=== PATIENT | male | born 1965 | race Hispanic/Latino ===

== ENCOUNTER 2025-02-07 17:07 | Inpatient (IN) | payer SELFPAY ==
[~2025-02-07] VITALS: Ht 170.2 cm; Wt 69.4 kg
[2025-02-07] MEDS: acetaMINOPHEN 500 MG TABLET PO ONE (17:40)
[2025-02-07] MEDS: [UNRECOGNIZED DRUG - OTHER] IV ONE (17:41)
--- NOTE | 2025-02-07 17:41 | ERN ---
General Chief Complaint: Fever Stated Complaint: BACK PAIN Time Seen by MD: 17:15 Time Seen by Midlevel: 17:15 Source: patient History of Present Illness Initial Comments 58-year-old male who presents to the emergency department due to a fever. Patient reports back pain, chest pain, abdominal pain, vomiting onset 3 days. Denies any painful urination, cough, congestion, headache or further associated symptoms. Patient was seen yesterday at a clinic prescribed lidocaine patches and given pain medication, but states that pain is not improving. Denies significant past medical history. Allergies: Coded Allergies: No Known Allergies (Unverified Allergy, Unknown, 02/07/25) Past Medical History Past Medical History: No Pertinent History Past Surgical History: Other ROS Dictation Constitutional: Positive for fever Negative for chills, and weight loss Eyes: Negative for injury, pain,redness, and discharge ENT: Negative for injury,pain or swelling Cardiovascular: Positive for chest pain Negative for palpitations, and edema Respiratory: Negative for shortness of breath, cough, and wheezing, Abdomen/GI: Positive for abdominal pain, vomiting Negative for nausea, diarrhea, and constipation Back: Negative for injury and pain : Negative for painful urination, bleeding or discharge MS/Extremity: Positive for back pain Negative for injury and deformity Skin: Negative for rash, and discoloration Neuro: Negative for headache, weakness, numbness, tingling, and seizure Psych: Negative for suicide ideation, homicidal ideation, and hallucinations Physical Exam Physical Exam Dictation General: awake, alert, no acute distress Head/Face: Normocephalic, atraumatic Eyes: PERRL, EOMI, normal conjunctiva ENT: oral cavity clear, oral mucosa moist Neck: Supple, normal range of motion Cardiovascular: RRR, normal S1/S2 Respiratory: CTAB, no respiratory distress, no rales or wheezes Abdomen: Soft, mild RUQ / epigastric tenderness, non-distended, no guarding or rebound. Back: No CVA tenderness Skin: Warm, dry, normal turgor, no rash MS/Extremity: Pulses equal, no cyanosis, neurovascular intact, FROM Neuro: COAx4, GCS 15, strength 5/5, CN 2-12 intact, normal cerebellar exam, normal gait Psych: Normal behavior, mood, and affect normal Results Laboratory and Microbiology Labs Reviewed?: Yes EKG/XRAY/US/CT/MRI X-RAY Comment REASON: Fever ORDERING PHYSICIAN: ADRIANE MOSHER PROCEDURE: CXR1VW - CHEST 1VW PORTABLE CHEST RADIOGRAPH INDICATION: Fever COMPARISON: None FINDINGS: Heart size is normal. The pulmonary vascularity and hillary appear normal. No abnormal pulmonary parenchymal opacity or consolidation identified. Left suprahilar scarring. No significant pleural effusion noted. No pneumothorax detected. IMPRESSION: No radiographic evidence for any acute cardiopulmonary process. DICTATED BY: YELENA DURÁN MD DATE: 02/07/[address] Scan Comment REASON: RUQ and epigastric pain ORDERING PHYSICIAN: ADRIANE MOSHER PROCEDURE: ABD PEL W - CT ABDOMEN/PELVIS W/CONTRAST CT ABDOMEN/PELVIS W/CONTRAST HISTORY: Epigastric pain COMPARISON: None TECHNIQUE: Multiple sequential axial images of the abdomen and pelvis were obtained from the dome of the diaphragm through symphysis pubis. Patient was given 100 cc of Omnipaque through intravenous route. Oral contrast was not given. FINDINGS: No pleural effusion is seen bilaterally. There is no evidence of parenchymal disease or pulmonary nodule of the visualized lower lungs. Degenerative changes of the thoracolumbar spine are present. The heart is not enlarged. Gallbladder is distended. Common duct is not dilated. The liver, spleen, adrenal glands and pancreas are unremarkable. 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 There is no evidence of hydronephrosis bilaterally. No evidence of renal stone is seen. Fecal material is seen in the colon. There are normal size retroperitoneal and mesenteric lymph nodes. No ascites is seen. Mild small bowel dilatation is seen. Appendix is not well seen in the evaluation. Pelvic sidewalls are symmetric bilaterally. Bladder is well distended without wall thickening. IMPRESSION: 1. Large amount of fecal material is seen in the colon may be related to constipation. Appendix is not well-seen limiting evaluation. CT was performed with one or more following dose reduction techniques: automated exposure control, adjustment of the mA and kv according to patient's size, or use of a iterative reconstruction technique. DICTATED BY: VIKTOR MANDUJANO MD DATE: 02/07/252000 REASON: RUQ and epigastric pain ORDERING PHYSICIAN: ADRIANE MOSHER PROCEDURE: ABD PEL W - CT ABDOMEN/PELVIS W/CONTRAST CT ABDOMEN/PELVIS W/CONTRAST HISTORY: Epigastric pain COMPARISON: None TECHNIQUE: Multiple sequential axial images of the abdomen and pelvis were obtained from the dome of the diaphragm through symphysis pubis. Patient was given 100 cc of Omnipaque through intravenous route. Oral contrast was not given. FINDINGS: No pleural effusion is seen bilaterally. There is no evidence of parenchymal disease or pulmonary nodule of the visualized lower lungs. Degenerative changes of the thoracolumbar spine are present. The heart is not enlarged. Gallbladder is distended. Common duct is not dilated. The liver, spleen, adrenal glands and pancreas are unremarkable. 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 There is no evidence of hydronephrosis bilaterally. No evidence of renal stone is seen. Fecal material is seen in the colon. There are normal size retroperitoneal and mesenteric lymph nodes. No ascites is seen. Mild small bowel dilatation is seen. Appendix is not well seen in the evaluation. Pelvic sidewalls are symmetric bilaterally. Bladder is well distended without wall thickening. IMPRESSION: 1. Large amount of fecal material is seen in the colon may be related to constipation. Appendix is not well-seen limiting evaluation. CT was performed with one or more following dose reduction techniques: automated exposure control, adjustment of the mA and kv according to patient's size, or use of a iterative reconstruction technique. DICTATED BY: VIKTOR MANDUJANO MD DATE: 02/07/252000 [facility] MDM: Differential diagnosis: Cholecystitis, cholelithiasis, choledocholithiasis, pancreatitis Rationale: 58-year-old male who presents to the emergency department due to a fever. Patient reports back pain, chest pain, abdominal pain, vomiting onset 3 days. Denies any painful urination, cough, congestion, headache or further associated symptoms. Patient was seen yesterday at a clinic prescribed lidocai ne patches and given pain medication, but states that pain is not improving. Denies significant past medical history. Per physical examination patient has mild tenderness to the right upper quadrant/epigastric, in no acute distress, nonlabored breathing. Per initial vital signs patient triggered sepsis. Labs obtained are nonspecific. UA indicates hematuria negative for UTI. SARs, influenza, strep negative. Chest x-ray indicates no acute abnormalities. CT abdomen and pelvis indicates gallb ladder distention, constipation. Patient was administered acetaminophen, morphine, Zofran, IV fluids in the ED. patient was educated on findings and diagnosis. Based on patient's symptoms, vitals, CT finding of gallbladder distention decision for admission was discussed with the patient. Case was discussed with hospitalist who accepted admission. Previous outside records reviewed: Old ER visits. Risk of complication and/or morbidity or mortality of patient management: None Medications-Per medication reconciliation Need for hospitalization: Patient does meet criteria for hospitalization. Need for emergency major/minor surgery: No There are no social concerns with this patient. Prescription drug management Prescriptions will include symptomatic care Patient's prior external medical records from other ER visits were reviewed by me as indicated. Prior testing and results from previous visits were reviewed. Prior tests were taken into account with medical decision making and resource utilization, independent historian/historians were used to obtain complete medical history. I independently interpreted the test that were performed, results were reviewed by me and considered findings on radiology if ordered. Medical management and examination interpretation discussions were had by me with other qualified healthcare professionals as indicated for the patient's care. ED Course DX & DISP Disposition: Inpatient Decision to Admit Date: Feb 07, 2025 Departure Impression: Primary Impression: Sepsis Additional Impressions: Vomiting, Gall bladder pain, Distention of biliary tract, Constipation Condition: Stable Referrals: SELF,REFERRAL (PCP) I performed the substantive portion of the visit. I have reviewed and personally made and approve the management plan that is documented in the notes by myself or the ZAIDA. I acknowledge full responsibility for the patient's management plan. ADRIANE MOSHER Feb 07, 2025 17:41
--- NOTE | 2025-02-07 17:53 | HMCIMG ---
PORTABLE CHEST RADIOGRAPH INDICATION: Fever COMPARISON: None FINDINGS: Heart size is normal. The pulmonary vascularity and hillary appear normal. No abnormal pulmonary parenchymal opacity or consolidation identified. Left suprahilar scarring. No significant pleural effusion noted. No pneumothorax detected. IMPRESSION: No radiographic evidence for any acute cardiopulmonary process.
[2025-02-07 18:02] LABS: RAPID GROUP A STREP negative (NEGATIVE)
[2025-02-07 18:02] LABS: APPEARANCE,URINE CLEAR (CLEAR); BILIRUBIN,URINE NEGATIVE (NEGATIVE); COLOR,URINE YELLOW (YELLOW); GLUCOSE, URINE (UA) NEGATIVE (NEGATIVE); KETONES,URINE 40 mg/dL (NEGATIVE); LEUKOCYTE ESTERASE ,URINE NEGATIVE Leu/uL (NEGATIVE); NITRATE,URINE NEGATIVE (NEGATIVE); OCCULT BLOOD,URINE MODERATE (NEGATIVE); PH,URINE 8.5 (5.0-8.0); PROTEIN,URINE 600 mg/dL (NEGATIVE); UROBILINOGEN,URINE >=8.0 mg/dL (0.2-1.0)
[2025-02-07 18:10] LABS: MUCUS,URINE RARE LPF (None Seen); RBC,URINE TNTC /HPF (0-1); SQUAMOUS EPITHELIAL CELL,UR RARE /HPF (0-2); UNCLASSIFIED CRYSTAL 1 /HPF (None Seen)
[2025-02-07 18:12] LABS: COVID19 (SARS ANTIGEN RAPID) PRESUMPTIVE NEGATIVE (NEGATIVE); INFLUENZA TYPE A Negative For Type A (NEGATIVE); INFLUENZA TYPE B Negative For Type B (NEGATIVE)
[2025-02-07 18:38] LABS: BASOPHILS # (AUTO) 0.03 K/uL (0.00-0.20); BASOPHILS % (AUTO) 0.3 % (0.0-5.0); HEMATOCRIT 43.9 % (42-54); IMMATURE GRANULOCYTE ABSOLUTE 0.04 K/uL (0-1); LYMPHOCYTES # (AUTO) 0.6 K/uL (1.0-4.8); LYMPHOCYTES % (AUTO) 6.6 % (21.0-51.0); MEAN CORPUSCULAR HEMOGLOBIN 29.8 pg (27.0-33.0); MEAN CORPUSCULAR HGB CONC 33.5 g/dL (32.0-36.0); MEAN CORPUSCULAR VOLUME 88.9 fL (79-99); MONOCYTES # (AUTO) 0.5 K/uL (0.1-1.0); MONOCYTES % (AUTO) 5.2 % (3.0-13.0); NEUTROPHILS # (AUTO) 7.9 K/uL (1.8-7.7); NEUTROPHILS % (AUTO) 87.5 % (40.0-77.0); PLATELET COUNT (AUTO) 165 K/uL (130-400); RED BLOOD CELL COUNT(AUTO) 4.94 MIL/uL (4.50-6.20); RED CELL DISTRIBUTION WIDTH 13.3 % (11.0-15.5); WHITE BLOOD COUNT (AUTO) 9.1 K/uL (4.8-10.8)
[2025-02-07 18:48] LABS: POTASSIUM 3.9 mmol/L (3.5-5.1)
[2025-02-07 18:52] VITALS: TEMP 99.1
[2025-02-07 18:52] LABS: ALBUMIN 3.9 g/dL (3.5-5.0); BILIRUBIN,DIRECT 0.2 mg/dL (0.0-0.3); BILIRUBIN,TOTAL 0.5 mg/dL (0.2-1.0)
[2025-02-07] MEDS ORDERED: IOHEXOL 350 MG/ML 100ML INFUS..BTL IV ONE (19:17)
--- NOTE | 2025-02-07 19:17 | NUR ---
PT CARE ASSUMED AT THIS TIME
--- NOTE | 2025-02-07 20:09 | HMCIMG ---
CT ABDOMEN/PELVIS W/CONTRAST HISTORY: Epigastric pain COMPARISON: None TECHNIQUE: Multiple sequential axial images of the abdomen and pelvis were obtained from the dome of the diaphragm through symphysis pubis. Patient was given 100 cc of Omnipaque through intravenous route. Oral contrast was not given. FINDINGS: No pleural effusion is seen bilaterally. There is no evidence of parenchymal disease or pulmonary nodule of the visualized lower lungs. Degenerative changes of the thoracolumbar spine are present. The heart is not enlarged. Gallbladder is distended. Common duct is not dilated. The liver, spleen, adrenal glands and pancreas are unremarkable. 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 There is no evidence of hydronephrosis bilaterally. No evidence of renal stone is seen. Fecal material is seen in the colon. There are normal size retroperitoneal and mesenteric lymph nodes. No ascites is seen. Mild small bowel dilatation is seen. Appendix is not well seen in the evaluation. Pelvic sidewalls are symmetric bilaterally. Bladder is well distended without wall thickening. IMPRESSION: 1. Large amount of fecal material is seen in the colon may be related to constipation. Appendix is not well-seen limiting evaluation. CT was performed with one or more following dose reduction techniques: automated exposure control, adjustment of the mA and kv according to patient's size, or use of a iterative reconstruction technique.
--- NOTE | 2025-02-07 20:44 | NUR ---
PROVIDER DON DON AT BEDSIDE AT THIS TIME
[2025-02-07] MEDS: ondanSETRON 4MG INJ IVP ONE (20:50)
[2025-02-07] MEDS: morPHINE 2 MG SYG IVP ONE (20:53)
--- NOTE | 2025-02-07 21:49 | HP ---
[facility] HISTORY AND PHYSICAL Date of Service: Feb 07, 2025 Time of Service: 21:49 PCP: Self-referral HISTORY OF PRESENT ILLNESS: This is a 58 year old male Slovak-speaking with no pertinent medical surgical history who presents to the ED for complaints of right upper shoulder pain, right upper quadrant abdominal pain, fever, nausea, vomiting and chest pain for three days.Patient reports he has been having 3 episodes of vomiting today. Patient states he is drinking one beer per day, smoke seven cigarettes per week and used marijuana and cocaine. Upon arrival to ER vital signs temperature 102.9, heart rate 111, respiration 20, blood pressure 179/98 saturation 56. Seen and examined patient in the ER awake alert and coherent. Patient appears comfortable. No abdominal tenderness on palpation however patient continued to complain of right shoulder pain. Patient denies palpitation, cough, diarrhea, palpitation and shortness of breaths. Latest vital signs temperature 98.2, heart rate 79, respiration 15, blood pressure 137/80 saturation 99% on room air. Labs: WBC 9, hemoglobin 14, hematocrit 43 platelet count 165 and Neutrophils 87. Sodium 135, chloride 97, glucose 126, troponin 37, lipase 16. Urine toxicology positive for cocaine. CT abdomen and pelvis with contrast result revealed large amount of fecal material is seen in the colon may be related to constipation. Appendix is not well seen limiting evaluation. Chest x-ray result is unremarkable. Right shoulder x-ray still pending at this time. While in the ER patient received Tylenol 1000 mg p.o., fluid resuscitation of NS 30 mL/kilogram over 3 hours, morphine 2 mg IV, and Zofran 4 mg IV and Rocephin 1 g IV. ER called and recommended to admit the patient. REVIEW OF SYSTEMS CONSTITUTIONAL: Denies fevers, chills, or night sweats. No unintentional weight loss reported. NEUROLOGICAL: Denies headache, amaurosis fugax, motor weakness, sensory deficit, vertigo/spinning sensation, gait abnormalities, or tremors. ENT: No hearing loss, otalgia, otorrhea, rhinitis, rhinorrhea, hoarseness, or sore throat. CARDIOVASCULAR: Denies any exertional angina, dyspnea on exertion, orthopnea, paroxysmal nocturnal dyspnea, palpitations, life-threatening arrhythmias, claudication. PULMONARY: Denies any shortness of breath, cough, phlegm/sputum, hemoptysis, pleuritic chest pain. SLEEP: Denies morning headaches, daytime somnolence or napping. Denies difficulty falling asleep, staying asleep, waking from sleep. Denies knowledge of snoring. GASTROINTESTINAL: Denies any type of dysphagia to either liquids or solids. Denies nausea, vomiting, pyrosis, early satiety, abdominal pain, diarrhea, constipation, or changes in stool consistency or caliber. Denies coffee-ground emesis, hematemesis, hematochezia, or melanotic stools. GENITOURINARY: Denies frequency, urgency, nocturia, hematuria or incontinence (Storage/Irritative symptoms.) Low urinary stream, straining to void, urinary intermittency or hesitancy, splitting of the voiding stream, terminal dribbling. ENDOCRINOLOGIC: Denies polyuria, polydipsia, polyphagia or heat/cold intolerances. HEMATOLOGIC: Denies thrombophilia/previous clots, or coagulopathy/bleeding disorders. ONCOLOGIC: Denies personal history of malignancy. DERMATOLOGIC: Denies rashes or pruritus. PSYCHIATRIC: Denies any suicidal or homicidal ideation. Denies hallucinations. PAST MEDICAL HISTORY: [ Patient denies ] PAST SURGICAL HISTORY: [Patient denies ] PAST SOCIAL HISTORY: [Patient lives with friend. Patient admits to smoking seven cigarettes per week, drinks beer every day and uses marijuana and cocaine ] FAMILY HISTORY: [ Noncontributory ] Coded Allergies: No Known Allergies (Unverified Allergy, Unknown, 02/07/25) PHYSICAL EXAM GENERAL APPEARANCE: The patient is awake, alert, and oriented, in no acute cardiopulmonary distress. NEUROLOGICAL: Cranial nerves II-XII grossly intact. Motor is 5/5 in bilateral upper and lower extremities proximal to distal. No sensory deficits. HEENT: Face is symmetric. Pupils are equal and reactive. Extraocular movements are intact. NECK: Supple. No JVD. No thyromegaly. No submental, submandibular, pre- /postauricular, occipital or supraclavicular lymphadenopathy. CHEST: Normal chest expansion. No Telemetry. LUNGS: Absence of any rales, rhonchi or any wheezing. CARDIOVASCULAR: Regular. S1 and S2 normal. No appreciable rubs, murmurs or gallops. ABDOMEN: Soft, nontender, and nondistended. There is no rebound, voluntary guarding, or rigidity. : Deferred. No [place]. EXTREMITIES: Non-edematous and not cyanotic. No clubbing. Good capillary refill. SKIN: No skin breakdown. Vital Sign (Last 24 Hours) 02/07/25 19:35 Temp 99.3 Pulse 97 Resp 17 B/P (MAP) 162/92 Pulse Ox 98 O2 Delivery Room Air* O2 Flow Rate 0 FiO2 21 LABS: Laboratory: Test 02/07/25 17:50 02/07/25 17:28 Range/Units White Blood Count 9.1 4.8-10.8 K/uL Red Blood Count 4.94 4.50-6.20 MIL/uL Hemoglobin 14.7 14.0-18.0 g/dL Hematocrit 43.9 42-54 % Mean Corpuscular Volume 88.9 79-99 fL Mean Corpuscular Hemoglobin 29.8 27.0-33.0 pg Mean Corpuscular Hemoglobin Concent 33.5 32.0-36.0 g/dL Red Cell Distribution Width 13.3 11.0-15.5 % Platelet Count 165 130-400 K/uL Mean Platelet Volume 10.4 7.5-10.5 fL Immature Granulocyte % (Auto) 0.4 0-1 % Neutrophils (%) (Auto) 87.5 H 40.0-77.0 % Lymphocytes (%) (Auto) 6.6 L 21.0-51.0 % Monocytes (%) (Auto) 5.2 3.0-13.0 % Eosinophils (%) (Auto) 0.0 0.0-8.0 % Basophils (%) (Auto) 0.3 0.0-5.0 % Neutrophils # (Auto) 7.9 H 1.8-7.7 K/uL Lymphocytes # (Auto) 0.6 L 1.0-4.8 K/uL Monocytes # (Auto) 0.5 0.1-1.0 K/uL Eosinophils # (Auto) 0.00 0.00-0.70 K/uL Basophils # (Auto) 0.03 0.00-0.20 K/uL Absolute Immature Granulocyte (auto 0.04 0-1 K/uL Nucleated Red Blood Cells 0.0 0.0-0.19 % White Cell Morphology Comment See comments Urine Color YELLOW YELLOW Urine Appearance CLEAR CLEAR Urine pH 8.5 H 5.0-8.0 Urine Specific Thomas 1.032 H 1.001-1.031 Urine Protein 600 H NEGATIVE mg/dL Urine Glucose (UA) NEGATIVE NEGATIVE mg/dL Urine Ketones 40 H NEGATIVE mg/dL Urine Occult Blood MODERATE H NEGATIVE Urine Nitrate NEGATIVE NEGATIVE Urine Bilirubin NEGATIVE NEGATIVE mg/dL Urine Urobilinogen >=8.0 H 0.2-1.0 mg/dL Urine Leukocyte Esterase NEGATIVE NEGATIVE Prasanth/uL Urine RBC TNTC H 0-1 /HPF Urine WBC 2-5 H 0-1 /HPF Urine Squamous Epithelial Cells RARE 0-2 /HPF Urine Other Crystals (Auto) 1 None Seen /HPF Urine Bacteria None None Seen /HPF Sodium Level 135 L 136-145 mmol/L Potassium Level 3.9 3.5-5.1 mmol/L Chloride Level 97 L 101-111 mmol/L Carbon Dioxide Level 29 21-32 mmol/L Blood Urea Nitrogen 14 7-18 mg/dL Creatinine 1.0 0.5-1.3 mg/dL Glomerular Filtration Rate Calc 88 >90 mL/min Random Glucose 126 H 70-105 mg/dL Lactic Acid Level 1.9 0.8-2.5 mmol/L Total Calcium 9.3 8.5-10.1 mg/dL Total Bilirubin 0.5 0.2-1.0 mg/dL Direct Bilirubin 0.2 0.0-0.3 mg/dL Aspartate Amino Transf (AST/SGOT) 36 10-37 U/L Alanine Aminotransferase (ALT/SGPT) 38 12-78 U/L Alkaline Phosphatase 82 50-136 U/L Troponin I High Sensitivity 37 4-75 ng/L Total Protein 8.0 6.0-8.3 g/dL Albumin 3.9 3.5-5.0 g/dL Lipase 16 16-77 U/L Influenza Type A Antigen Negative For Type A NEGATIVE Influenza Type B Antigen Negative For Type B NEGATIVE SARS-CoV-2 Antigen (Rapid) PRESUMPTIVE NEGATIVE NEGATIVE Group A Streptococcus Rapid negative NEGATIVE DIAGNOSTICS / RADIOLOGY: [ ] ASSESSMENT: Sirs with organ dysfunction POA Hyponatremia POA Cocaine positive POA Active alcohol drinker POA Active cigarette smoker POA PLAN: We will admit patient in medical telemetry We will start patient on heart healthy diet We will start NS @ 100 ml / hr x2 bags and re evaluate We will start patient on Rocephin IV daily for empiric coverage We will start on Famotidine 20 mg IV bid for GI prophylaxis We will replace electrolytes as needed per protocol We will add prn medication for fever,pain,cough and nausea We will obtain blood culture and urine culture follow-up result We will request x-ray of the right shoulder Counseled on smoking, alcohol and recreational use cessation We will request labs in am Further orders to follow depending on above results Case discussed with attending physician and came up with above treatment and plan of care. ADVANCED CARE PLANNING 1. Which of the following were discussed? Hospice Care - No Therapeutic options - Yes Advance Directives - No Other discussions - 2. Discussed with who? Patient 3. Voluntary nature of this service was explained to the patient? Yes 4. Amount of time spent - ___20____ 5. Reviewed by Physician? (if this service was performed by NPP) Yes Patient seen and examined by me. Agree with note by CONTINUITY CLERK SEE ADDITIONAL ORDERS PER CHART DISCUSSED WITH NURSING STAFF OTILIO PRICE BOLT SORTER Feb 07, 2025 21:49
[2025-02-07] MEDS ORDERED: ondanSETRON 4MG INJ IV PRN (22:00)
[2025-02-07] MEDS ORDERED: cefTRIAXone 1G VIAL 1 GM in 0.9%NACL 50ML 50 ML IV SCH (22:00)
[2025-02-07] MEDS: 0.9%NACL 1000ML 1,000 ML IV SCH (22:08)
[2025-02-07 22:18] LABS: AMPHET/METH SCREEN,URINE NEGATIVE (NEGATIVE); BARBITURATE SCREEN, URINE NEGATIVE (NEGATIVE); BENZODIAZEPINES SCREEN,URINE NEGATIVE (NEGATIVE); CANNABINOID SCREEN,URINE NEGATIVE (NEGATIVE); COCAINE SCREEN,URINE POSITIVE (NEGATIVE); OPIATE SCREEN,URINE NEGATIVE (NEGATIVE); PHENCYCLIDINE SCREEN,URINE NEGATIVE (NEGATIVE)
[2025-02-08] MEDS: cefTRIAXone 1G VIAL IVPB SCH (00:19)
[2025-02-08] MEDS: acetaMINOPHEN 325 MG TAB PO PRN ×2 (05:07→19:23)
--- NOTE | 2025-02-08 07:07 | NUR ---
REPORT GIVEN TO RONY RN AT THIS TIME
[2025-02-08 07:31] LABS: BASOPHILS # (AUTO) 0.02 K/uL (0.00-0.20); BASOPHILS % (AUTO) 0.2 % (0.0-5.0); EOSINOPHILS # (AUTO) 0.01 K/uL (0.00-0.70); EOSINOPHILS % (AUTO) 0.1 % (0.0-8.0); HEMATOCRIT 41.7 % (42-54); IMMATURE GRANULOCYTE ABSOLUTE 0.03 K/uL (0-1); LYMPHOCYTES # (AUTO) 0.9 K/uL (1.0-4.8); LYMPHOCYTES % (AUTO) 10.1 % (21.0-51.0); MEAN CORPUSCULAR HEMOGLOBIN 30.1 pg (27.0-33.0); MEAN CORPUSCULAR HGB CONC 33.8 g/dL (32.0-36.0); MEAN CORPUSCULAR VOLUME 88.9 fL (79-99); MONOCYTES # (AUTO) 0.6 K/uL (0.1-1.0); MONOCYTES % (AUTO) 6.5 % (3.0-13.0); NEUTROPHILS # (AUTO) 7.5 K/uL (1.8-7.7); NEUTROPHILS % (AUTO) 82.8 % (40.0-77.0); PLATELET COUNT (AUTO) 146 K/uL (130-400); RED BLOOD CELL COUNT(AUTO) 4.69 MIL/uL (4.50-6.20); RED CELL DISTRIBUTION WIDTH 13.3 % (11.0-15.5); WHITE BLOOD COUNT (AUTO) 9.1 K/uL (4.8-10.8)
--- NOTE | 2025-02-08 07:35 | NUR ---
PATIENT DOES NOT HAVE ANY HOME MEDS WITH HIM, HE DOES HAVE A BOTTLE OF PILLS LABELED TYLENOL AT BEDSIDE WRITTEN IN PEN, I ASKED HIM IF HE HAS TAKEN ANY WHILE ADMITTED AND HE STATED IN [place] "IV ONLY BEEN TAKING WHAT YALL HAVE BEEN GIVING ME" I PUT HIS BOTTLE OF TYLENOL IN A GUEST BAG AND LEFT THEM THERE AT BEDSIDE, PATIENT RESTING IN BED, CALL LIGHT IN REACH
--- NOTE | 2025-02-08 07:53 | HMCIMG ---
SHOULDER COMP 2+VWS RT HISTORY: Right shoulder pain COMPARISON: None TECHNIQUE: 2 images of right shoulder were obtained. FINDINGS: There is no acute displaced fracture or dislocation. Degenerative changes are seen. IMPRESSION: 1. Findings as described above.
[2025-02-08 07:59] LABS: ALBUMIN 3.5 g/dL (3.5-5.0); BILIRUBIN,TOTAL 0.3 mg/dL (0.2-1.0); CREATININE 0.8 mg/dL (0.5-1.3); MAGNESIUM 1.9 mg/dL (1.80-2.40); POTASSIUM 4.1 mmol/L (3.5-5.1); TOTAL PROTEIN, SERUM 6.9 g/dL (6.0-8.3)
--- NOTE | 2025-02-08 08:00 | NUR ---
PER PATIENT, HIS IS 1965 NOT 1966 FULL NAME ANDREW PASCUAL, NOT ANDREW MARMOLEJO PATIENT RESTING IN BED, CALL LIGHT IN REACH
--- NOTE | 2025-02-08 08:37 | EKG ---
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
[2025-02-08] MEDS: FAMOTIDINE 20MG VIAL IV SCH (09:19)
--- NOTE | 2025-02-08 09:22 | PN ---
[facility] PROGRESS NOTE Date of Service: Feb 08, 2025 Time of Service: 09:21 SUBJECTIVE: [ ] This is a 58 year old male Nauruan-speaking with no pertinent medical surgical history who presents to the ED for complaints of right upper shoulder pain, right upper quadrant abdominal pain, fever, nausea, vomiting and chest pain for three days.Patient reports he has been having 3 episodes of vomiting today. Patient states he is drinking one beer per day, smoke seven cigarettes per week and used marijuana and cocaine. Upon arrival to ER vital signs temperature 102.9, heart rate 111, respiration 20, blood pressure 179/98 saturation 56. Seen and examined patient in the ER awake alert and coherent. Patient appears comfortable. No abdominal tenderness on palpation however patient continued to complain of right shoulder pain. Patient denies palpitation, cough, diarrhea, palpitation and shortness of breaths. Latest vital signs temperature 98.2, heart rate 79, respiration 15, blood pressure 137/80 saturation 99% on room air. Labs: WBC 9, hemoglobin 14, hematocrit 43 platelet count 165 and Neutrophils 87. Sodium 135, chloride 97, glucose 126, troponin 37, lipase 16. Urine toxicology positive for cocaine. CT abdomen and pelvis with contrast result revealed large amount of fecal material is seen in the colon may be related to constipation. Appendix is not well seen limiting evaluation. Chest x-ray result is unremarkable. Right shoulder x-ray still pending at this time. While in the ER patient received Tylenol 1000 mg p.o., fluid resuscitation of NS 30 mL/kilogram over 3 hours, morphine 2 mg IV, and Zofran 4 mg IV and Rocephin 1 g IV. ER called and recommended to admit the patient. 02/08/25 The patient is a 58-year-old male admitted for evaluation of chest pain, abdo ibeth pain, lower back pain and vomiting fever, nausea for the past3 days. He reports mild improvement in abdominal pain today but ongoing back discomfort and persistent bloating. Pain is localized to the right upper quadrant and epigastric region. He denies palpitation or syncope. The back pain started after a work place fall from about 5-10 feet. He has been evaluated at the urgent care clinic and was prescribed lidocaine patches and pain meds which did not provide relief. Today and feels fatigued, with continued mild nausea but no vomiting. Denies new fever, chills or shortness of breath. No new neurological symptoms. CBC reveals WBC count of 9.1 normal, hemoglobin of 14.1, hematocrit of 41.7, neutrophils of 82.8% elevated CMP is unremarkable with AST 32, ALT,38 and ALP 75. Troponins are elevated from 37-40 today. Protocol is normal urine analysis is positive for hematuria proteins and ketones, WBC and RBC. Urine toxicology screen is positive for cocaine. Culture has been positive for Gram-positive cocci. Chest and shoulder x-rays are negative. CT abdomen pelvis with contrast revealed fecal impaction with colonic distention, gallbladder distention and appendix not visualized limiting the study. REVIEW OF SYSTEMS CONSTITUTIONAL: Denies fevers, chills, or night sweats. No unintentional weight loss reported. NEUROLOGICAL: Denies headache, amaurosis fugax, motor weakness, sensory deficit, vertigo/spinning sensation, gait abnormalities, or tremors. ENT: No hearing loss, otalgia, otorrhea, rhinitis, rhinorrhea, hoarseness, or sore throat. CARDIOVASCULAR: Denies any exertional angina, dyspnea on exertion, orthopnea, paroxysmal nocturnal dyspnea, palpitations, life-threatening arrhythmias, claudication. PULMONARY: Denies any shortness of breath, cough, phlegm/sputum, hemoptysis, pleuritic chest pain. SLEEP: Denies morning headaches, daytime somnolence or napping. Denies difficulty falling asleep, staying asleep, waking from sleep. Denies knowledge of snoring. GASTROINTESTINAL: Denies any type of dysphagia to either liquids or solids. Denies nausea, vomiting, pyrosis, early satiety, abdominal pain, diarrhea, constipation, or changes in stool consistency or caliber. Denies coffee-ground emesis, hematemesis, hematochezia, or melanotic stools. GENITOURINARY: Denies frequency, urgency, nocturia, hematuria or incontinence (Storage/Irritative symptoms.) Low urinary stream, straining to void, urinary intermittency or hesitancy, splitting of the voiding stream, terminal dribbling. ENDOCRINOLOGIC: Denies polyuria, polydipsia, polyphagia or heat/cold intolerances. HEMATOLOGIC: Denies thrombophilia/previous clots, or coagulopathy/bleeding disorders. ONCOLOGIC: Denies personal history of malignancy. DERMATOLOGIC: Denies rashes or pruritus. PSYCHIATRIC: Denies any suicidal or homicidal ideation. Denies hallucinations. PHYSICAL EXAM GENERAL APPEARANCE: The patient is awake, alert, and oriented, in no acute cardiopulmonary distress. NEUROLOGICAL: Cranial nerves II-XII grossly intact. Motor is 5/5 in bilateral upper and lower extremities proximal to distal. No sensory deficits. HEENT: Face is symmetric. Pupils are equal and reactive. Extraocular movements are intact. NECK: Supple. No JVD. No thyromegaly. No submental, submandibular, pre- /postauricular, occipital or supraclavicular lymphadenopathy. CHEST: Normal chest expansion. No Telemetry. LUNGS: Absence of any rales, rhonchi or any wheezing. CARDIOVASCULAR: Regular. S1 and S2 normal. No appreciable rubs, murmurs or gallops. ABDOMEN: Soft, nontender, and nondistended. There is no rebound, voluntary guarding, or rigidity. : Deferred. No [place]. EXTREMITIES: Non-edematous and not cyanotic. No clubbing. Good capillary refill. SKIN: No skin breakdown. Vital Signs (last 8hr) Date Time Temp Pulse Resp B/P (MAP) Pulse Ox O2 Delivery O2 Flow Rate FiO2 02/08/25 08:04 98.2 74 18 145/66 99 Room Air* 0 21 02/08/25 06:21 76 16 156/79 98 Room Air* 0 21 02/08/25 04:57 68 14 152/83 99 Room Air* 0 21 02/08/25 02:30 86 17 138/64 98 Room Air* 0 21 LABS: Laboratory: Test 02/08/25 07:22 02/07/25 17:50 02/07/25 17:28 Range/Units White Blood Count 9.1 4.8-10.8 K/uL Red Blood Count 4.69 4.50-6.20 MIL/uL Hemoglobin 14.1 14.0-18.0 g/dL Hematocrit 41.7 L 42-54 % Mean Corpuscular Volume 88.9 79-99 fL Mean Corpuscular Hemoglobin 30.1 27.0-33.0 pg Mean Corpuscular Hemoglobin Concent 33.8 32.0-36.0 g/dL Red Cell Distribution Width 13.3 11.0-15.5 % Platelet Count 146 130-400 K/uL Mean Platelet Volume 9.8 7.5-10.5 fL Immature Granulocyte % (Auto) 0.3 0-1 % Neutrophils (%) (Auto) 82.8 H 40.0-77.0 % Lymphocytes (%) (Auto) 10.1 L 21.0-51.0 % Monocytes (%) (Auto) 6.5 3.0-13.0 % Eosinophils (%) (Auto) 0.1 0.0-8.0 % Basophils (%) (Auto) 0.2 0.0-5.0 % Neutrophils # (Auto) 7.5 1.8-7.7 K/uL Lymphocytes # (Auto) 0.9 L 1.0-4.8 K/uL Monocytes # (Auto) 0.6 0.1-1.0 K/uL Eosinophils # (Auto) 0.01 0.00-0.70 K/uL Basophils # (Auto) 0.02 0.00-0.20 K/uL Absolute Immature Granulocyte (auto 0.03 0-1 K/uL Nucleated Red Blood Cells 0.0 0.0-0.19 % Sodium Level 136 136-145 mmol/L Potassium Level 4.1 3.5-5.1 mmol/L Chloride Level 98 L 101-111 mmol/L Carbon Dioxide Level 27 21-32 mmol/L Blood Urea Nitrogen 9 7-18 mg/dL Creatinine 0.8 0.5-1.3 mg/dL Glomerular Filtration Rate Calc 104 >90 mL/min Random Glucose 110 H 70-105 mg/dL Total Calcium 8.5 8.5-10.1 mg/dL Magnesium Level 1.90 1.80-2.40 mg/dL Total Bilirubin 0.3 # 0.2-1.0 mg/dL Aspartate Amino Transf (AST/SGOT) 32 10-37 U/L Alanine Aminotransferase (ALT/SGPT) 38 12-78 U/L Alkaline Phosphatase 75 50-136 U/L Total Creatine Kinase 42 21-232 U/L Troponin I High Sensitivity 40 4-75 ng/L Total Protein 6.9 6.0-8.3 g/dL Albumin 3.5 3.5-5.0 g/dL Procalcitonin 0.14 0.05-0.5 ng/mL White Cell Morphology Comment See comments Urine Color YELLOW YELLOW Urine Appearance CLEAR CLEAR Urine pH 8.5 H 5.0-8.0 Urine Specific [place] 1.032 H 1.001-1.031 Urine Protein 600 H NEGATIVE mg/dL Urine Glucose (UA) NEGATIVE NEGATIVE mg/dL Urine Ketones 40 H NEGATIVE mg/dL Urine Occult Blood MODERATE H NEGATIVE Urine Nitrate NEGATIVE NEGATIVE Urine Bilirubin NEGATIVE NEGATIVE mg/dL Urine Urobilinogen >=8.0 H 0.2-1.0 mg/dL Urine Leukocyte Esterase NEGATIVE NEGATIVE Prasanth/uL Urine RBC TNTC H 0-1 /HPF Urine WBC 2-5 H 0-1 /HPF Urine Squamous Epithelial Cells RARE 0-2 /HPF Urine Other Crystals (Auto) 1 None Seen /HPF Urine Bacteria None None Seen /HPF Lactic Acid Level 1.9 0.8-2.5 mmol/L Direct Bilirubin 0.2 0.0-0.3 mg/dL Lipase 16 16-77 U/L Urine Opiates Screen NEGATIVE NEGATIVE Urine Barbiturates Screen NEGATIVE NEGATIVE Urine Phencyclidine Screen NEGATIVE NEGATIVE Urine Amphetamines Screen NEGATIVE NEGATIVE Urine Benzodiazepines Screen NEGATIVE NEGATIVE Urine Cocaine Screen POSITIVE H NEGATIVE Urine Marijuana (THC) Screen NEGATIVE NEGATIVE Influenza Type A Antigen Negative For Type A NEGATIVE Influenza Type B Antigen Negative For Type B NEGATIVE SARS-CoV-2 Antigen (Rapid) PRESUMPTIVE NEGATIVE NEGATIVE Group A Streptococcus Rapid negative NEGATIVE Current Medications Medications (Trade) Dose Ordered Sig/Aaron Route PRN Reason Start Time Stop Time Status Last Admin Dose Admin Acetaminophen (TYLenol 325MG TAB) 650 mg Q4H PRN PO MILD PAIN (1-3) 02/07/25 22:00 03/09/25 21:59 02/08/25 05:07 650 MG Acetaminophen (TYLenol 325MG TAB) 650 mg Q6H PRN PO TEMPERATURE GREATER THAN 101.5 02/07/25 22:00 03/09/25 21:59 Ceftriaxone Sodium 1 gm/ Sodium Chloride 50 ml @ 100 mls/hr Q24H IV 02/07/25 22:00 02/07/25 22:02 DC Ceftriaxone Sodium (ROCEphine 1G INJ) 1 gm Q24H IVPB 02/07/25 22:30 02/17/25 22:29 02/08/25 00:19 1 GM Famotidine (Pepcid 20mg Vial) 20 mg BID IV 02/08/25 09:00 03/10/25 08:59 02/08/25 09:19 20 MG Ondansetron HCl (zoFRAN 4MG INJ) 4 mg Q6H PRN IV NAUSEA/VOMITING 02/07/25 22:00 03/09/25 21:59 Sodium Chloride 1,000 ml @ 100 mls/hr Q10H IV 02/07/25 22:00 03/09/25 21:59 02/07/25 22:08 100 MLS/HR DIAGNOSTICS / RADIOLOGY: [PATIENT: ANDREW MARMOLEJO MR#: [id number] : 11/01/1966 SEX: M AGE: 58 LOCATION: [facility] ORDER 1725 STATUS: REG ER REPORT#: [id number] SERVICE 1724 REASON: Fever ORDERING PHYSICIAN: ADRIANE MOSHER PROCEDURE: CXR1VW - CHEST 1VW PORTABLE CHEST RADIOGRAPH INDICATION: Fever COMPARISON: None FINDINGS: Heart size is normal. The pulmonary vascularity and hillary appear normal. No abnormal pulmonary parenchymal opacity or consolidation identified. Left suprahilar scarring. No significant pleural effusion noted. No pneumothorax detected. IMPRESSION: No radiographic evidence for any acute cardiopulmonary process. DICTATED BY: YELENA DURÁN MD DATE: 02/07/251749 ELECTRONICALLY SIGNED BY: YELENA DURÁN MD DATE: 02/07/251752 PATIENT: ANDREW MARMOLEJO MR#: [id number] : 11/01/1966 SEX: M AGE: 58 LOCATION: [facility] ORDER 1801 STATUS: REG ER REPORT#: [id number] SERVICE 1800 REASON: RUQ and epigastric pain ORDERING PHYSICIAN: ADRIANE MOSHER PROCEDURE: ABD PEL W - CT ABDOMEN/PELVIS W/CONTRAST CT ABDOMEN/PELVIS W/CONTRAST HISTORY: Epigastric pain COMPARISON: None TECHNIQUE: Multiple sequential axial images of the abdomen and pelvis were obtained from the dome of the diaphragm through symphysis pubis. Patient was given 100 cc of Omnipaque through intravenous route. Oral contrast was not given. FINDINGS: No pleural effusion is seen bilaterally. There is no evidence of parenchymal disease or pulmonary nodule of the visualized lower lungs. Degenerative changes of the thoracolumbar spine are present. The heart is not enlarged. Gallbladder is distended. Common duct is not dilated. The liver, spleen, adrenal glands and pancreas are unremarkable. 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 There is no evidence of hydronephrosis bilaterally. No evidence of renal stone is seen. Fecal material is seen in the colon. There are normal size retroperitoneal and mesenteric lymph nodes. No ascites is seen. Mild small bowel dilatation is seen. Appendix is not well seen in the evaluation. Pelvic sidewalls are symmetric bilaterally. Bladder is well distended without wall thickening. IMPRESSION: 1. Large amount of fecal material is seen in the colon may be related to constipation. Appendix is not well-seen limiting evaluation. CT was performed with one or more following dose reduction techniques: automated exposure control, adjustment of the mA and kv according to patient's size, or use of a iterative reconstruction technique. DICTATED BY: VIKTOR MANDUJANO MD DATE: 02/07/252000 ELECTRONICALLY SIGNED BY: VIKTOR MANDUJANO MD DATE: 02/07/252008 ] PATIENT: ANDREW MARMOLEJO MR#: [id number] : 11/01/1966 SEX: M AGE: 58 LOCATION: [facility] ORDER 00 STATUS: ADM IN REPORT#: [id number] SERVICE 99 REASON: RIGHT SHOUYLDER PAIN ORDERING PHYSICIAN: OTILIO PRICE CHLORINATOR PROCEDURE: SHOL 2V RT - SHOULDER COMP 2+VWS RT SHOULDER COMP 2+VWS RT HISTORY: Right shoulder pain COMPARISON: None TECHNIQUE: 2 images of right shoulder were obtained. FINDINGS: There is no acute displaced fracture or dislocation. Degenerative changes are seen. IMPRESSION: 1. Findings as described above. DICTATED BY: VIKTOR MANDUJANO MD DATE: 02/08/25 0749 ELECTRONICALLY SIGNED BY: VIKTOR MANDUJANO MD DATE: 02/08/25 0753 ASSESSMENT: Acute Chest Pain + Troponin Elevation Sepsis due to Gram-Positive Cocci Bacteremia (Suspected source: biliary vs urinary) Acute Cholecystitis (Suspected Distended GB + RUQ Pain) Severe Constipation with Fecal Loading Acute Back Pain Post-Traumatic Fall Hematuria with Positive UA (No leukocyte esterase) Cocaine Use Substance abuse disorder Hyponatremia POA Cocaine positive POA Active alcohol drinker POA Active cigarette smoker POA PLAN: We will admit patient in medical telemetry We will start patient on heart healthy diet We will start NS @ 100 ml / hr x2 bags and re evaluate We will start on Famotidine 20 mg IV bid for GI prophylaxis We will replace electrolytes as needed per protocol We will add prn medication for fever,pain,cough and nausea We will obtain blood culture and urine culture follow-up result Counseled on smoking, alcohol and recreational use cessation We will request labs in am Further orders to follow depending on above results Acute Chest Pain + Troponin Elevation Plan: * Serial troponins & EKGs * Aspirin 81 mg PO daily * Avoid beta blockers due to active cocaine use * Nitroglycerin PRN for chest pain (monitor BP) * Heparin drip: Hold until cardiology decision * Telemetry monitoring * Sepsis due to Gram-Positive Cocci Bacteremia (Suspected source: biliary vs urinary) Plan: * Start Vancomycin + Zosyn IV * Blood culture sensitivities pending * Repeat blood cultures x2 * Infectious Disease consult * Monitor for endocarditis (SIVA if high suspicion) Acute Cholecystitis (Suspected Distended GB + RUQ Pain) Plan: * NPO * RUQ Ultrasound STAT * Continue IVF (NS 100 mL/hr) * If positive US findings, consult general surgery * Monitor for signs of worsening or perforation Severe Constipation with Fecal Loading Plan: * Enemas until BM * Docusate + Senna PO daily * Polyethylene glycol (MiraLAX) PO daily * Monitor for BM, distention, vomiting * Hold PO intake if ileus suspected Acute Back Pain Post-Traumatic Fall Plan: * Acetaminophen 650 mg PO q6h * Avoid NSAIDs due to sepsis risk and GI strain * Muscle relaxant (Cyclobenzaprine 5 mg PO TID) if no contraindication * Physical therapy consult when stable Hematuria with Positive UA (No leukocyte esterase) Plan: * Repeat urinalysis with microscopy * Urine culture * Renal US if hematuria persists Cocaine Use Recent Active Plan: * Toxicology referral for counseling * Document substance use in discharge summary * Educate on cardiac, renal, and neurologic risks Prophylaxis: DVT prophylaxis: Heparin 5000 units SQ q8h GI prophylaxis: Pantoprazole 40 mg IV daily Pulmonary: Incentive spirometry, ambulation as tolerated ATTESTATION BY PHYSICIAN I have seen and examined the patient. I reviewed the documentation, medical decision making, and treatment plan as noted by the resident above. I agree with the findings and plan of care. Nick Pack MD, RAGHAVA R MD Feb 08, 2025 09:22
--- NOTE | 2025-02-08 10:20 | NUR ---
CALLED AND GAVE REPORT TO JOHNIE RN ROOM 328
[2025-02-08 11:20] VITALS: O2SAT 100
[2025-02-08 12:00] VITALS: BP 136/83; PULSE 60; RESP 18; TEMP 98.3
--- NOTE | 2025-02-08 12:31 | NUR ---
DCP Patient speaks Maltese. Patient states lives with Magaly Segal, Friend [phone] in a house with one step entrance and walk in shower. Address: [address] [place] [id number]. 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 States able to complete ADL's on his own. Denies medical devices. PCP - None per patient [facility]acy - [facility] [address] [place] [address]. Upon discharge, states Magaly Segal, Friend [phone]. Referred to Financial Counseling. Provided [facility] information and Community Resources [facility] [place]. Addendum: 02/08/25 at 1236 by PILO DAS RN CM Amended: Links added.
[2025-02-08] MEDS ORDERED: VANCOMYCIN PROTOCOL PER PHARMACY IV SCH (15:00)
[2025-02-08] MEDS ORDERED: ZOSYN 3.375GM +NS 50ML IV SCH (15:00)
[2025-02-08] MEDS: VANCOMYCIN 1.75 GM/250 ML BAG 250 ML IV ONE (15:39)
[2025-02-08 16:00] VITALS: BP 151/81; PULSE 73; RESP 18; TEMP 98
[2025-02-08] MEDS ORDERED: MAGNESIUM 2GM PREMIX 50ML 50 ML IV PRN (16:00)
[2025-02-08] MEDS ORDERED: PoTASSium chloRIDE 20MEQ/100ML 100 ML IV PRN (16:00)
[2025-02-08] MEDS ORDERED: NITROGLYCERIN 0.4 MG SL TAB SL PRN (16:30)
[2025-02-08 16:46] LABS: INR 0.97 (0.85-1.15); PROTHROMBIN TIME 10.3 SEC (9.6-11.6)
[2025-02-08 16:47] LABS: PARTIAL THROMBOPLASTIN TIME 32.7 SEC (26.3-35.5)
[2025-02-08] MEDS: doCUSate SODIUM 100 MG CAP PO ONE (17:43)
[2025-02-08] MEDS: HEParin 5,000 UNIT VIAL SQ SCH (17:48)
[2025-02-08] MEDS: ZOSYN 3.375GM +NS 50ML IV SCH (19:22)
[2025-02-08 20:00] VITALS: BP_SYST 126; BP_SYST 142; BP_SYST 150; BP_DIAS 51; BP_DIAS 73; BP_DIAS 88; PULSE 72; PULSE 74; PULSE 80; RESP 18; TEMP 98; TEMP 98.1; TEMP 99.5
[2025-02-08] MEDS: polyETHYLene GLYCol 3350 17 GM POWD.PACK PO SCH (20:38)
[2025-02-08] MEDS: CYCLOBENZAPRINE HCL 10 MG TABLET PO SCH (20:39)
[2025-02-08 20:45] VITALS: O2SAT 97
[2025-02-08 23:39] VITALS: BP 143/92; PULSE 72; RESP 18; TEMP 98
[2025-02-08] MEDS: VANCOMYCIN 1G/250ML KIT 250 ML IV SCH (23:47)
[2025-02-09 03:23] VITALS: BP 155/90; PULSE 70; RESP 18; TEMP 98.3
--- NOTE | 2025-02-09 06:37 | EKG ---
[facility] Test Date: 2025-02-08 Test Time: 17:09:43 Pat Name: ANDREW MARMOLEJO Department: [facility] Room: 328 1 Gender: M [place] Jailer: [id number] : 1965 Requested By: QUIN CABRAL Order Number: [id number] Reading MD: Leanna Carreno Measurements Intervals [place] Rate: 76 P: 59 MT: 164 QRS: 18 QRSD: 90 T: 40 QT: 350 QTc: 393 Interpretive Statements Normal sinus rhythm Compared to ECG 02/07/2025 17:49:50 Left ventricular hypertrophy no longer present ST (T wave) deviation no longer present Electronically Signed On 02-10-2025 10:55:22 CDT by Leanna Carreno Please click the below link to view image of tracing.
[2025-02-09 06:46] LABS: BASOPHILS # (AUTO) 0.03 K/uL (0.00-0.20); BASOPHILS % (AUTO) 0.4 % (0.0-5.0); EOSINOPHILS # (AUTO) 0.04 K/uL (0.00-0.70); EOSINOPHILS % (AUTO) 0.5 % (0.0-8.0); HEMATOCRIT 39.2 % (42-54); IMMATURE GRANULOCYTE ABSOLUTE 0.04 K/uL (0-1); LYMPHOCYTES # (AUTO) 1.2 K/uL (1.0-4.8); LYMPHOCYTES % (AUTO) 15.1 % (21.0-51.0); MEAN CORPUSCULAR HEMOGLOBIN 29.5 pg (27.0-33.0); MEAN CORPUSCULAR HGB CONC 34.2 g/dL (32.0-36.0); MEAN CORPUSCULAR VOLUME 86.3 fL (79-99); MONOCYTES % (AUTO) 12.2 % (3.0-13.0); NEUTROPHILS # (AUTO) 5.8 K/uL (1.8-7.7); NEUTROPHILS % (AUTO) 71.3 % (40.0-77.0); PLATELET COUNT (AUTO) 167 K/uL (130-400); RED BLOOD CELL COUNT(AUTO) 4.54 MIL/uL (4.50-6.20); RED CELL DISTRIBUTION WIDTH 13.2 % (11.0-15.5); WHITE BLOOD COUNT (AUTO) 8.1 K/uL (4.8-10.8)
[2025-02-09 07:02] LABS: ALBUMIN 2.9 g/dL (3.5-5.0); BILIRUBIN,TOTAL 0.3 mg/dL (0.2-1.0); CREATININE 0.7 mg/dL (0.5-1.3); MAGNESIUM 1.8 mg/dL (1.80-2.40); POTASSIUM 4.1 mmol/L (3.5-5.1); TOTAL PROTEIN, SERUM 6.8 g/dL (6.0-8.3)
[2025-02-09 08:00] VITALS: BP 154/94; PULSE 72; RESP 18; TEMP 98.3
[2025-02-09] MEDS: ASPIRIN 81 MG EC TAB PO SCH (09:01)
--- NOTE | 2025-02-09 11:33 | PN ---
INFECTIOUS DISEASE PROGRESS NOTE Date of Service: Feb 09, 2025 SUBJECTIVE: This is a 59-year-old male patient with no past medical history who presented to the emergency room for evaluation of right shoulder pain radiating to the right side of the chest. 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 Right shoulder X-ray done on admission was negative for dislocation or fracture. Total CK results was 300. Patient also reported having fevers, chills and nausea at home. In the ED patient had a fever of 102.9. He was swab for influenza and COVID-19 and results came back negative. Patient reported having burning and frequent urination. A urinalysis was obtained and following on cultures. Blood cultures were obtained and preliminary results growing Gram- positive cocci in clusters. A chest x-ray was negative. Patient reported that the lady he lives with has cats and dogs inside the house. Patient has been started on vancomycin and Zosyn. On examination today patient is oriented x3, [place]-speaking only. He is able to move his arm with some pain. Still voicing some pain on the right side of the chest mostly when he raises his arm up and he relates it to the arm pulling incident. No body rash nor bites seen at this time. Patient reported he smokes one pack of cigarette per week, drinks beer mostly on the weekends and does marijuana and cocaine every weekend. No fever this morning, temperature is 98.2. Denying abdominal pain. We will continue current antibiotics and to be adjusted when culture is updated or finalized. We will continue to follow patient. REVIEW OF SYSTEMS CONSTITUTIONAL: Fever and chills POA. HEAD/FACE: No signs of trauma. EENT: Denies eye pain, blurred vision, double vision, or light sensitivity. RESPIRATORY: Denies shortness of breath, cough, wheezing. CARDIOVASCULAR: Denies chest pain, palpitation, syncope. GASTROINTESTINAL/ABDOMINAL: Nausea and vomiting POA. GENITOURINARY: Dysuria and frequency POA. MUSCULOSKELETAL: Denies joint pain, tenderness, or trauma. Right side of the chest and shoulder pain. INTEGUMENTARY: Denies rash or itchiness NEUROLOGICAL/PSYCH: Denies anxiety, depression, heat or cold intolerance. PHYSICAL EXAM EYES: Anicteric. Pupils equal and reactive. HENT: No oral thrush seen, moist Oral mucosa NECK: Supple, no JVD or thyromegaly. LUNGS: Good air entry. No rales, no rhonchi. CARDIOVASCULAR: S1, S2 regular. No murmur heard. ABDOMEN: Soft, non tender, bowel sounds present, no organomegaly CENTRAL NERVOUS SYSTEM: Awake, alert, oriented x 3. SKIN: No rashes, no swelling. LYMPHATICS: No peripheral lymphadenopathy MUSCULOSKELETAL: No joint swelling, erythema or tenderness. Right shoulder pain. EXTREMITIES: No cyanosis or clubbing. BACK: No deformity, no pressure ulcer. GENITOURINARY: Dysuria and frequency. Vital Sign (Last 12 Hours) 02/08/25 02/09/25 02/09/25 23:39 03:23 08:00 Temp 98.1 98.2 98.2 Pulse 72 70 72 Resp 18 18 18 B/P (MAP) 143/92 155/90 154/94 Pulse Ox 99 100 100 O2 Delivery Room Air Room Air Room Air Intake & Output (last 24hrs) 02/08/25 02/08/25 02/09/25 15:00 23:00 07:00 Output Total 550 ml Balance -550 ml LABS: Laboratory: Test 02/09/25 06:20 02/08/25 16:26 02/08/25 07:22 02/07/25 17:50 Range/Units White Blood Count 8.1 4.8-10.8 K/uL Red Blood Count 4.54 4.50-6.20 MIL/uL Hemoglobin 13.4 L 14.0-18.0 g/dL Hematocrit 39.2 L 42-54 % Mean Corpuscular Volume 86.3 79-99 fL Mean Corpuscular Hemoglobin 29.5 27.0-33.0 pg Mean Corpuscular Hemoglobin Concent 34.2 32.0-36.0 g/dL Red Cell Distribution Width 13.2 11.0-15.5 % Platelet Count 167 130-400 K/uL Mean Platelet Volume 10.1 7.5-10.5 fL Immature Granulocyte % (Auto) 0.5 0-1 % Neutrophils (%) (Auto) 71.3 40.0-77.0 % Lymphocytes (%) (Auto) 15.1 L 21.0-51.0 % Monocytes (%) (Auto) 12.2 3.0-13.0 % Eosinophils (%) (Auto) 0.5 0.0-8.0 % Basophils (%) (Auto) 0.4 0.0-5.0 % Neutrophils # (Auto) 5.8 1.8-7.7 K/uL Lymphocytes # (Auto) 1.2 1.0-4.8 K/uL Monocytes # (Auto) 1.0 0.1-1.0 K/uL Eosinophils # (Auto) 0.04 0.00-0.70 K/uL Basophils # (Auto) 0.03 0.00-0.20 K/uL Absolute Immature Granulocyte (auto 0.04 0-1 K/uL Nucleated Red Blood Cells 0.0 0.0-0.19 % Sodium Level 134 L 136-145 mmol/L Potassium Level 4.1 3.5-5.1 mmol/L Chloride Level 99 L 101-111 mmol/L Carbon Dioxide Level 29 21-32 mmol/L Blood Urea Nitrogen 7 7-18 mg/dL Creatinine 0.7 0.5-1.3 mg/dL Glomerular Filtration Rate Calc 107 >90 mL/min Random Glucose 99 70-105 mg/dL Total Calcium 8.6 8.5-10.1 mg/dL Magnesium Level 1.80 1.80-2.40 mg/dL Total Bilirubin 0.3 0.2-1.0 mg/dL Aspartate Amino Transf (AST/SGOT) 24 10-37 U/L Alanine Aminotransferase (ALT/SGPT) 32 12-78 U/L Alkaline Phosphatase 71 50-136 U/L Total Protein 6.8 6.0-8.3 g/dL Albumin 2.9 L 3.5-5.0 g/dL Prothrombin Time 10.3 9.6-11.6 SEC Prothromb Time International Ratio 0.97 0.85-1.15 Activated Partial Thromboplast Time 32.7 26.3-35.5 SEC Lactic Acid Level 1.8 0.8-2.5 mmol/L Total Creatine Kinase 300 #H 21-232 U/L Troponin I High Sensitivity 38 4-75 ng/L C-Reactive Protein, Quantitative 166.70 H 0.5-3.0 mg/L Procalcitonin 0.14 0.05-0.5 ng/mL White Cell Morphology Comment See comments Urine Color YELLOW YELLOW Urine Appearance CLEAR CLEAR Urine pH 8.5 H 5.0-8.0 Urine Specific [place] 1.032 H 1.001-1.031 Urine Protein 600 H NEGATIVE mg/dL Urine Glucose (UA) NEGATIVE NEGATIVE mg/dL Urine Ketones 40 H NEGATIVE mg/dL Urine Occult Blood MODERATE H NEGATIVE Urine Nitrate NEGATIVE NEGATIVE Urine Bilirubin NEGATIVE NEGATIVE mg/dL Urine Urobilinogen >=8.0 H 0.2-1.0 mg/dL Urine Leukocyte Esterase NEGATIVE NEGATIVE Prasanth/uL Urine RBC TNTC H 0-1 /HPF Urine WBC 2-5 H 0-1 /HPF Urine Squamous Epithelial Cells RARE 0-2 /HPF Urine Other Crystals (Auto) 1 None Seen /HPF Urine Bacteria None None Seen /HPF Direct Bilirubin 0.2 0.0-0.3 mg/dL Lipase 16 16-77 U/L Urine Opiates Screen NEGATIVE NEGATIVE Urine Barbiturates Screen NEGATIVE NEGATIVE Urine Phencyclidine Screen NEGATIVE NEGATIVE Urine Amphetamines Screen NEGATIVE NEGATIVE Urine Benzodiazepines Screen NEGATIVE NEGATIVE Urine Cocaine Screen POSITIVE H NEGATIVE Urine Marijuana (THC) Screen NEGATIVE NEGATIVE Test 02/07/25 17:28 Range/Units Influenza Type A Antigen Negative For Type A NEGATIVE Influenza Type B Antigen Negative For Type B NEGATIVE SARS-CoV-2 Antigen (Rapid) PRESUMPTIVE NEGATIVE NEGATIVE Group A Streptococcus Rapid negative NEGATIVE DIAGNOSTICS / RADIOLOGY: PATIENT: ANDREW BECKER ACCT: [id number] LOC: [facility] U: [id number] AGE/SX: 59/M ROOM: [facility] RE02/07/[address]: SARITHA CAICEDO MD : [id number] BED: 1 DIS: STATUS: ADM IN TLOC: SPEC: [id number] DARRICK: 02/07/25651 STATUS: RES REQ: [id number] RECD: 02/08/25-[address] [facility] [address]: ADRIANE MOSHER SOURCE: BLOOD ENTR: 02/08/25-1119 VLADIMIR GILBERT: SAYRA: BLOOD ORDERED: AERO ID & SENS --------- --- Procedure Result Mulu Date-Time AEROBIC ID & SENSITIVITIES Preliminary 02/09/25-0745 [facility] COLONY DESCRIPTION: DAY 1: GRAM STAIN FROM BLOOD CULTURE BOTTLE GRAM POSITIVE COCCI IN CLUSTERS AEROBIC AND ANAEROBIC BOTTLES ISOLATION IN PROGRESS DAY 2: STAPHYLOCOCCUS AUREUS SENSITIVITY TO FOLLOW Test(s) performed by: [facility] [address] [place] [id number] ASSESSMENT: Gram-positive bacteremia. Urinary tract infection. Right shoulder pain. Rhabdomyolysis. Polysubstance abuse. PLAN: Continue vancomycin per pharmacy protocol. Continue Zosyn. Antibiotics to be adjusted when culture is updated or finalized. Continue pain management. Continue GI prophylaxis. We will monitor electrolytes. Thank you for allowing ID to participate in the care of this patient. This case was reviewed and discussed with my supervising physician and the above assessment and plan was formulated and agreed upon. ATTESTATION BY PHYSICIAN I have seen and examined the patient. I reviewed the documentation, medical decision making, and treatment plan as noted by the mid-level provider above. I agree with the findings and plan of care. JED ELLIOTT MD, [facility] Feb 09, 2025 11:33
--- NOTE | 2025-02-09 11:39 | HMCIMG ---
US ABDOMINAL COMPLETE HISTORY: Cholecystitis COMPARISON: CT from 02/07/2025 TECHNIQUE: Multiple transverse and longitudinal ultrasound images of the abdomen were obtained. FINDINGS: Abdominal aorta and inferior vena cava are unremarkable. The visualized portion of the pancreas is within normal limits. Liver measures 16.3 cm. Liver is echogenic consistent with liver parenchymal disease. No gallstone is seen. Common duct measures 5 mm. No evidence of gallbladder wall thickening is seen. Both kidneys are seen. Right kidney measures 10.9 x 4.1 x 3.6 cm. Left kidney measures 13.1 x 6 x 5 cm. No hydronephrosis is seen of the both kidneys. 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 The spleen is grossly unremarkable. IMPRESSION: 1. No gallstone or ductal dilatation is seen. 2. No hydronephrosis is seen.
[2025-02-09 12:00] VITALS: BP 160/90; PULSE 78; RESP 18; TEMP 98.3
--- NOTE | 2025-02-09 14:27 | NUR ---
Nutrition consult per PCM eval Reviewed labs, notes, and medications. Pt with hx of substance abuse, drinks daily, smokes daily, N/V prior to admin, w/ fecal impaction w/ colonic distention, on HH diet, IV abx, miralax per chart review. Wt via supine scale, last BM 02/07/25, no edema, mild muscle and fat loss, no wound noted per nursing. Pt asleep during visit. Visually assessed mild muscle and fat loss, observed lunch tray <50 PO intake. Pt with non-severe PCM, Supplement thiamin 100 mg/day for 5-7 days + MVI QD for at least 10 days. Recommendations: -Provide HH + ensure HP BID w/ am and dinner tray -Monitor PO intake -Encourage PO intake as able -Monitor BM -If no BM >3 days consider stool softener -Monitor electrolytes -Replenish electrolytes per protocol -Monitor wts -Reweigh as able -Order Vit D, vit b-12 labs to rule out deficiencies -Order lipid panel -Provide b-complex QD due to Pt's hx of alcohol intake -Order B-6 labs per Pt hx of EtoH -Provide vit. C 500 mg BID per Pt hx of smoking -Recommend Pt to follow up with PCP -Monitor goals of care RD to follow + available for consult per protocol Addendum: 02/09/25 at [address] Amended: Links added.
--- NOTE | 2025-02-09 15:39 | PN ---
[facility] PROGRESS NOTE Date of Service: Feb 09, 2025 Time of Service: 15:34 SUBJECTIVE: [ ] This is a 58 year old male Finnish-speaking with no pertinent medical surgical history who presents to the ED for complaints of right upper shoulder pain, right upper quadrant abdominal pain, fever, nausea, vomiting and chest pain for three days.Patient reports he has been having 3 episodes of vomiting today. Patient states he is drinking one beer per day, smoke seven cigarettes per week and used marijuana and cocaine. Upon arrival to ER vital signs temperature 102.9, heart rate 111, respiration 20, blood pressure 179/98 saturation 56. Seen and examined patient in the ER awake alert and coherent. Patient appears comfortable. No abdominal tenderness on palpation however patient continued to complain of right shoulder pain. Patient denies palpitation, cough, diarrhea, palpitation and shortness of breaths. Latest vital signs temperature 98.2, heart rate 79, respiration 15, blood pressure 137/80 saturation 99% on room air. Labs: WBC 9, hemoglobin 14, hematocrit 43 platelet count 165 and Neutrophils 87. Sodium 135, chloride 97, glucose 126, troponin 37, lipase 16. Urine toxicology positive for cocaine. CT abdomen and pelvis with contrast result revealed large amount of fecal material is seen in the colon may be related to constipation. Appendix is not well seen limiting evaluation. Chest x-ray result is unremarkable. Right shoulder x-ray still pending at this time. While in the ER patient received Tylenol 1000 mg p.o., fluid resuscitation of NS 30 mL/kilogram over 3 hours, morphine 2 mg IV, and Zofran 4 mg IV and Rocephin 1 g IV. ER called and recommended to admit the patient. 02/08/25 The patient is a 58-year-old male admitted for evaluation of chest pain, abd ominal pain, lower back pain and vomiting fever, nausea for the past3 days. He reports mild improvement in abdominal pain today but ongoing back discomfort and persistent bloating. Pain is localized to the right upper quadrant and epigastric region. He denies palpitation or syncope. The back pain started after a work place fall from about 5-10 feet. He has been evaluated at the urgent care clinic and was prescribed lidocaine patches and pain meds which did not provide relief. Today and feels fatigued, with continued mild nausea but no vomiting. Denies new fever, chills or shortness of breath. No new neurological symptoms. CBC reveals WBC count of 9.1 normal, hemoglobin of 14.1, hematocrit of 41.7, neutrophils of 82.8% elevated CMP is unremarkable with AST 32, ALT,38 and ALP 75. Troponins are elevated from 37-40 today. Protocol is normal urine analysis is positive for hematuria proteins and ketones, WBC and RBC. Urine toxicology screen is positive for cocaine. Culture has been positive for Gram-positive cocci. Chest and shoulder x-rays are negative. CT abdomen pelvis with contrast revealed fecal impaction with colonic distention, gallbladder distention and appendix not visualized limiting the study. 02/09/25 The patient is examined at bedside, he is clinically improving today. He reports that his back pain has significantly improved, and chest pain has slightly improved. He now describes the chest pain as localized to left anterior chest wall sharp in nature reproducible with palpation and movement likely musculoskeletal in etiology. Denies radiation dyspnea and palpitation. No further episodes of vomiting or abdominal pain. Reports slight fatigue but it denies dizziness, diarrhea or fever. Remains on room air, tolerating oral intake and ambulating with minimal discomfort. WBC count is improving with 8.1 normal from 9.1 yesterday, hemoglobin is at 13.4, 39.2. Neutrophils are 71.3 Decreased from 82 point yesterday profile is normal CK is 300 increased CRP is 166.7 increased lactic acid is normal troponin is 38 from 40 blood cultures are positive for Gram-positive cocci sensitivities are still pending urine culture pending right upper quadrant ultrasound no gallstones, no ductal dilation no hydronephrosis. Chest x-ray normal 2D echocardiogram pending today. REVIEW OF SYSTEMS CONSTITUTIONAL: Denies fevers, chills, or night sweats. No unintentional weight loss reported. NEUROLOGICAL: Denies headache, amaurosis fugax, motor weakness, sensory deficit, vertigo/spinning sensation, gait abnormalities, or tremors. ENT: No hearing loss, otalgia, otorrhea, rhinitis, rhinorrhea, hoarseness, or sore throat. CARDIOVASCULAR: Denies any exertional angina, dyspnea on exertion, orthopnea, paroxysmal nocturnal dyspnea, palpitations, life-threatening arrhythmias, cla udication. PULMONARY: Denies any shortness of breath, cough, phlegm/sputum, hemoptysis, pleuritic chest pain. SLEEP: Denies morning headaches, daytime somnolence or napping. Denies difficulty falling asleep, staying asleep, waking from sleep. Denies knowledge of snoring. GASTROINTESTINAL: Denies any type of dysphagia to either liquids or solids. Denies nausea, vomiting, pyrosis, early satiety, abdominal pain, diarrhea, constipation, or changes in stool consistency or caliber. Denies coffee-ground emesis, hematemesis, hematochezia, or melanotic stools. GENITOURINARY: Denies frequency, urgency, nocturia, hematuria or incontinence (Storage/Irritative symptoms.) Low urinary stream, straining to void, urinary intermittency or hesitancy, splitting of the voiding stream, terminal dribbling. ENDOCRINOLOGIC: Denies polyuria, polydipsia, polyphagia or heat/cold intolerances. HEMATOLOGIC: Denies thrombophilia/previous clots, or coagulopathy/bleeding disorders. ONCOLOGIC: Denies personal history of malignancy. DERMATOLOGIC: Denies rashes or pruritus. PSYCHIATRIC: Denies any suicidal or homicidal ideation. Denies hallucinations. PHYSICAL EXAM GENERAL APPEARANCE: The patient is awake, alert, and oriented, in no acute cardiopulmonary distress. NEUROLOGICAL: Cranial nerves II-XII grossly intact. Motor is 5/5 in bilateral upper and lower extremities proximal to distal. No sensory deficits. HEENT: Face is symmetric. Pupils are equal and reactive. Extraocular movements are intact. NECK: Supple. No JVD. No thyromegaly. No submental, submandibular, pre- /postauricular, occipital or supraclavicular lymphadenopathy. CHEST: Normal chest expansion. No Telemetry. LUNGS: Absence of any rales, rhonchi or any wheezing. CARDIOVASCULAR: Regular. S1 and S2 normal. No appreciable rubs, murmurs or gallops. ABDOMEN: Soft, nontender, and nondistended. There is no rebound, voluntary guarding, or rigidity. : Deferred. No [place]. EXTREMITIES: Non-edematous and not cyanotic. No clubbing. Good capillary refill. SKIN: No skin breakdown. Vital Signs (last 8hr) Date Time Temp Pulse Resp B/P (MAP) Pulse Ox O2 Delivery O2 Flow Rate FiO2 02/09/25 12:00 98.2 78 18 160/90 99 Room Air 02/09/25 08:00 98.2 72 18 154/94 100 Room Air LABS: Laboratory: Test 02/09/25 06:20 02/08/25 16:26 02/08/25 07:22 02/07/25 17:50 Range/Units White Blood Count 8.1 4.8-10.8 K/uL Red Blood Count 4.54 4.50-6.20 MIL/uL Hemoglobin 13.4 L 14.0-18.0 g/dL Hematocrit 39.2 L 42-54 % Mean Corpuscular Volume 86.3 79-99 fL Mean Corpuscular Hemoglobin 29.5 27.0-33.0 pg Mean Corpuscular Hemoglobin Concent 34.2 32.0-36.0 g/dL Red Cell Distribution Width 13.2 11.0-15.5 % Platelet Count 167 130-400 K/uL Mean Platelet Volume 10.1 7.5-10.5 fL Immature Granulocyte % (Auto) 0.5 0-1 % Neutrophils (%) (Auto) 71.3 40.0-77.0 % Lymphocytes (%) (Auto) 15.1 L 21.0-51.0 % Monocytes (%) (Auto) 12.2 3.0-13.0 % Eosinophils (%) (Auto) 0.5 0.0-8.0 % Basophils (%) (Auto) 0.4 0.0-5.0 % Neutrophils # (Auto) 5.8 1.8-7.7 K/uL Lymphocytes # (Auto) 1.2 1.0-4.8 K/uL Monocytes # (Auto) 1.0 0.1-1.0 K/uL Eosinophils # (Auto) 0.04 0.00-0.70 K/uL Basophils # (Auto) 0.03 0.00-0.20 K/uL Absolute Immature Granulocyte (auto 0.04 0-1 K/uL Nucleated Red Blood Cells 0.0 0.0-0.19 % Sodium Level 134 L 136-145 mmol/L Potassium Level 4.1 3.5-5.1 mmol/L Chloride Level 99 L 101-111 mmol/L Carbon Dioxide Level 29 21-32 mmol/L Blood Urea Nitrogen 7 7-18 mg/dL Creatinine 0.7 0.5-1.3 mg/dL Glomerular Filtration Rate Calc 107 >90 mL/min Random Glucose 99 70-105 mg/dL Total Calcium 8.6 8.5-10.1 mg/dL Magnesium Level 1.80 1.80-2.40 mg/dL Total Bilirubin 0.3 0.2-1.0 mg/dL Aspartate Amino Transf (AST/SGOT) 24 10-37 U/L Alanine Aminotransferase (ALT/SGPT) 32 12-78 U/L Alkaline Phosphatase 71 50-136 U/L Total Protein 6.8 6.0-8.3 g/dL Albumin 2.9 L 3.5-5.0 g/dL Prothrombin Time 10.3 9.6-11.6 SEC Prothromb Time International Ratio 0.97 0.85-1.15 Activated Partial Thromboplast Time 32.7 26.3-35.5 SEC Lactic Acid Level 1.8 0.8-2.5 mmol/L Total Creatine Kinase 300 #H 21-232 U/L Troponin I High Sensitivity 38 4-75 ng/L C-Reactive Protein, Quantitative 166.70 H 0.5-3.0 mg/L Procalcitonin 0.14 0.05-0.5 ng/mL White Cell Morphology Comment See comments Urine Color YELLOW YELLOW Urine Appearance CLEAR CLEAR Urine pH 8.5 H 5.0-8.0 Urine Specific [place] 1.032 H 1.001-1.031 Urine Protein 600 H NEGATIVE mg/dL Urine Glucose (UA) NEGATIVE NEGATIVE mg/dL Urine Ketones 40 H NEGATIVE mg/dL Urine Occult Blood MODERATE H NEGATIVE Urine Nitrate NEGATIVE NEGATIVE Urine Bilirubin NEGATIVE NEGATIVE mg/dL Urine Urobilinogen >=8.0 H 0.2-1.0 mg/dL Urine Leukocyte Esterase NEGATIVE NEGATIVE Prasanth/uL Urine RBC TNTC H 0-1 /HPF Urine WBC 2-5 H 0-1 /HPF Urine Squamous Epithelial Cells RARE 0-2 /HPF Urine Other Crystals (Auto) 1 None Seen /HPF Urine Bacteria None None Seen /HPF Direct Bilirubin 0.2 0.0-0.3 mg/dL Lipase 16 16-77 U/L Urine Opiates Screen NEGATIVE NEGATIVE Urine Barbiturates Screen NEGATIVE NEGATIVE Urine Phencyclidine Screen NEGATIVE NEGATIVE Urine Amphetamines Screen NEGATIVE NEGATIVE Urine Benzodiazepines Screen NEGATIVE NEGATIVE Urine Cocaine Screen POSITIVE H NEGATIVE Urine Marijuana (THC) Screen NEGATIVE NEGATIVE Test 02/07/25 17:28 Range/Units Influenza Type A Antigen Negative For Type A NEGATIVE Influenza Type B Antigen Negative For Type B NEGATIVE SARS-CoV-2 Antigen (Rapid) PRESUMPTIVE NEGATIVE NEGATIVE Group A Streptococcus Rapid negative NEGATIVE Current Medications Medications (Trade) Dose Ordered Sig/Aaron Route PRN Reason Start Time Stop Time Status Last Admin Dose Admin Acetaminophen (TYLenol 325MG TAB) 650 mg Q4H PRN PO MILD PAIN (1-3) 02/07/25 22:00 03/09/25 21:59 02/08/25 05:07 650 MG Acetaminophen (TYLenol 325MG TAB) 650 mg Q6H PRN PO TEMPERATURE GREATER THAN 101.5 02/07/25 22:00 03/09/25 21:59 02/08/25 19:23 650 MG Aspirin (Aspirin 81mg Ec Tab) 81 mg DAILY PO 02/09/25 09:00 03/11/25 08:59 02/09/25 09:01 81 MG Ceftriaxone Sodium 1 gm/ Sodium Chloride 50 ml @ 100 mls/hr Q24H IV 02/07/25 22:00 02/07/25 22:02 DC Ceftriaxone Sodium (ROCEphine 1G INJ) 1 gm Q24H IVPB 02/07/25 22:30 02/08/25 14:39 DC 02/08/25 00:19 1 GM Cyclobenzaprine HCl (Cyclobenzaprine HCl) 5 mg TID PO 02/08/25 21:00 03/10/25 20:59 02/09/25 09:01 5 MG Famotidine (Pepcid 20mg Vial) 20 mg BID IV 02/08/25 09:00 03/10/25 08:59 02/09/25 09:01 20 MG Heparin Sodium (Porcine) (HEParin 5,000 UNIT VIAL) 5,000 unit Q8H SQ 02/08/25 16:00 03/10/25 15:59 02/09/25 09:14 5,000 UNIT Magnesium Sulfate 50 ml @ 0 mls/hr PROTOCOL PRN IV y 02/08/25 16:00 03/10/25 15:59 Nitroglycerin (Nitrostat) 0.4 mg AD PRN SL CHEST PAIN 02/08/25 16:30 03/10/25 16:29 Ondansetron HCl (zoFRAN 4MG INJ) 4 mg Q6H PRN IV NAUSEA/VOMITING 02/07/25 22:00 03/09/25 21:59 Piperacillin Sod/ Tazobactam Sod (Zosyn 3.375gm+NS 50ml) 3.375 gm Q12H IV 02/08/25 15:00 02/08/25 14:58 DC Piperacillin Sod/ Tazobactam Sod (Zosyn 3.375gm+NS 50ml) 3.375 gm Q12H IV 02/08/25 19:00 02/18/25 18:59 02/09/25 06:30 3.375 GM Polyethylene Glycol (MIRalax 3350 17 GM POWD.PACK) 17 gm BID PO 02/08/25 21:00 03/10/25 20:59 02/09/25 09:02 17 GM Potassium Chloride 100 ml @ 50 mls/hr AD PRN IV POTASSIUM PROTOCOL 02/08/25 16:00 03/10/25 15:59 Sodium Chloride 1,000 ml @ 100 mls/hr Q10H IV 02/07/25 22:00 03/09/25 21:59 02/09/25 06:31 100 MLS/HR Vancomycin HCl 250 ml @ 125 mls/hr Q8H IV 02/08/25 23:30 02/18/25 23:29 02/09/25 06:31 125 MLS/HR Vancomycin HCl (Vancomycin Protocol) 1 each AD IV 02/08/25 15:00 02/22/25 14:59 DIAGNOSTICS / RADIOLOGY: [ ] PATIENT: ANDREW BECKER MR#: [id number] : 1965 SEX: M AGE: 59 LOCATION: [facility] ORDER 1601 STATUS: ADM IN REPORT#: [id number] SERVICE 0600 REASON: Cholecystitis or other intra-abdominal pathology ORDERING PHYSICIAN: QUIN CABRAL MD PROCEDURE: ABDOMEN - US ABDOMINAL COMPLETE US ABDOMINAL COMPLETE HISTORY: Cholecystitis COMPARISON: CT from 02/07/2025 TECHNIQUE: Multiple transverse and longitudinal ultrasound images of the abdomen were obtained. FINDINGS: Abdominal aorta and inferior vena cava are unremarkable. The visualized portion of the pancreas is within normal limits. Liver measures 16.3 cm. Liver is echogenic consistent with liver parenchymal disease. No gallstone is seen. Common duct measures 5 mm. No evidence of gallbladder wall thickening is seen. Both kidneys are seen. Right kidney measures 10.9 x 4.1 x 3.6 cm. Left kidney measures 13.1 x 6 x 5 cm. No hydronephrosis is seen of the both kidneys. 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 The spleen is grossly unremarkable. IMPRESSION: 1. No gallstone or ductal dilatation is seen. 2. No hydronephrosis is seen. DICTATED BY: VIKTOR MANDUJANO MD DATE: 02/09/25 1135 ELECTRONICALLY SIGNED BY: VIKTOR MANDUJANO MD DATE: 02/09/25 1139 ASSESSMENT: Acute Chest Pain + Troponin Elevation Sepsis due to Gram-Positive Cocci Bacteremia (Suspected source: biliary vs urinary) Acute Cholecystitis (Suspected Distended GB + RUQ Pain) Severe Constipation with Fecal Loading Acute Back Pain Post-Traumatic Fall Hematuria with Positive UA (No leukocyte esterase) Cocaine Use Substance abuse disorder Hyponatremia POA Cocaine positive POA Active alcohol drinker POA Active cigarette smoker POA PLAN: We will admit patient in medical telemetry We will start patient on heart healthy diet We will start NS @ 100 ml / hr x2 bags and re evaluate We will start on Famotidine 20 mg IV bid for GI prophylaxis We will replace electrolytes as needed per protocol We will add prn medication for fever,pain,cough and nausea We will obtain blood culture and urine culture follow-up result Counseled on smoking, alcohol and recreational use cessation We will request labs in am Further orders to follow depending on above results Acute Chest Pain + Troponin Elevation Plan: * Serial troponins & EKGs * Aspirin 81 mg PO daily * Avoid beta blockers due to active cocaine use * Nitroglycerin PRN for chest pain (monitor BP) * Heparin drip: Hold until cardiology decision CK elevated likely due to muscle injury or cocaine use. Ordered and 2D echocardiogram to evaluate for wall motion abnormalities for left ventricular function. Of in 650 mg p.o. q.6h for musculoskeletal pain. * Telemetry monitoring * Sepsis due to Gram-Positive Cocci Bacteremia (Suspected source: biliary vs urinary) Plan: * Start Vancomycin + Zosyn IV * Blood culture sensitivities pending * Repeat blood cultures x2 * Infectious Disease consult * Monitor for endocarditis (SIVA if high suspicion) Acute Cholecystitis (Suspected Distended GB + RUQ Pain) Plan: * NPO * RUQ Ultrasound STAT * Continue IVF (NS 100 mL/hr) * If positive US findings, consult general surgery * Monitor for signs of worsening or perforation Severe Constipation with Fecal Loading Plan: * Enemas until BM * Docusate + Senna PO daily * Polyethylene glycol (MiraLAX) PO daily * Monitor for BM, distention, vomiting * Hold PO intake if ileus suspected Acute Back Pain Post-Traumatic Fall Plan: * Acetaminophen 650 mg PO q6h * Avoid NSAIDs due to sepsis risk and GI strain * Muscle relaxant (Cyclobenzaprine 5 mg PO TID) if no contraindication * Physical therapy consult when stable Hematuria with Positive UA (No leukocyte esterase) Plan: * Repeat urinalysis with microscopy * Urine culture * Renal US if hematuria persists Cocaine Use Recent Active Plan: * Toxicology referral for counseling * Document substance use in discharge summary * Educate on cardiac, renal, and neurologic risks Prophylaxis: DVT prophylaxis: Heparin 5000 units SQ q8h GI prophylaxis: Pantoprazole 40 mg IV daily Pulmonary: Incentive spirometry, ambulation as tolerated ATTESTATION BY PHYSICIAN I have seen and examined the patient. I reviewed the documentation, medical decision making, and treatment plan as noted by the resident above. I agree with the findings and plan of care. Nick Pack MD, RAGHAVA R MD Feb 09, 2025 15:39
[2025-02-09 16:00] VITALS: BP 143/92; PULSE 94; RESP 18; TEMP 98.4
[2025-02-09 20:00] VITALS: BP 155/81; PULSE 92; RESP 18; TEMP 99.3; O2SAT 99
[2025-02-10] VITALS (9 sets, daily range): BP systolic 117–154; BP diastolic 74–87; PULSE 73–96; RESP 17–22; TEMP 97.8–98.9; O2SAT 95–98
[2025-02-10 04:54] LABS: BASOPHILS # (AUTO) 0.02 K/uL (0.00-0.20); BASOPHILS % (AUTO) 0.4 % (0.0-5.0); EOSINOPHILS # (AUTO) 0.03 K/uL (0.00-0.70); EOSINOPHILS % (AUTO) 0.7 % (0.0-8.0); HEMATOCRIT 41.4 % (42-54); IMMATURE GRANULOCYTE ABSOLUTE 0.02 K/uL (0-1); LYMPHOCYTES % (AUTO) 22.6 % (21.0-51.0); MEAN CORPUSCULAR HEMOGLOBIN 29.6 pg (27.0-33.0); MEAN CORPUSCULAR HGB CONC 34.3 g/dL (32.0-36.0); MEAN CORPUSCULAR VOLUME 86.4 fL (79-99); MONOCYTES # (AUTO) 0.7 K/uL (0.1-1.0); MONOCYTES % (AUTO) 15.4 % (3.0-13.0); NEUTROPHILS # (AUTO) 2.8 K/uL (1.8-7.7); NEUTROPHILS % (AUTO) 60.5 % (40.0-77.0); PLATELET COUNT (AUTO) 127 K/uL (130-400); RED BLOOD CELL COUNT(AUTO) 4.79 MIL/uL (4.50-6.20); RED CELL DISTRIBUTION WIDTH 13.2 % (11.0-15.5); WHITE BLOOD COUNT (AUTO) 4.6 K/uL (4.8-10.8)
[2025-02-10 05:10] LABS: BILIRUBIN,TOTAL 0.4 mg/dL (0.2-1.0); CREATININE 0.7 mg/dL (0.5-1.3); POTASSIUM 3.8 mmol/L (3.5-5.1); TOTAL PROTEIN, SERUM 7.1 g/dL (6.0-8.3)
--- NOTE | 2025-02-10 10:11 | HMCSR ---
APPROVED REPORT EXAM: Two-dimensional and M-mode echocardiogram with Doppler and color Doppler. INDICATION ICD: lead for structural heart disease 2D Dimensions RVDd3.4 cmLVEF(%)46.2 (>50%)LVED Vol(simp.)118.0 mL IVSd1.0 (0.7-1.1cm)FS(%)23 %LVES Vol(simp.)57.0 mL LVDd5.4 (3.8-5.6cm)LA (2D)3.2 (1.6-4.0cm)LVEF(%, simp.)52 % PWd1.1 (0.7-1.1cm)Ao Root(2D)3.5 (2.0-3.7cm)LA ESV INDEX (BP)27.20 mL/m2 IVSs1.2 cmLVOT diam2.4 (1.8-2.4cm) LVDs4.2 (2.5-4.0cm)IVC diam1.1 cm PWs1.8 cm Deformation Strain Apical 4-18.0 % Apical 2-17.0 % Apical 3-19.0 % Global Strain-18.0 % M-Mode Dimensions EPSS1.2 cm Ao Root(MM)3.4 (2.0-3.7cm) Aortic Valve AoV Vmax1.1 m/Gavin Peak GR4.7 mmHgLVOT Vmax0.9 m/s AoV VTI0.2 mAo Mean GR2.5 mmHgLVOT VTI0.15 m VENECIA (VMAX)3.8 cm2AVA (VTI) 3.8 cm2 Mitral Valve MV E Vmax51.4 cm/sDECEL [id number] ms MV A Vmax59.7 cm/sP 1/2 T68 ms E/A ratio0.9MVA (PHT)3.2 cm2 TDI E/E' Medial5.0 Pulmonary Valve PV Vmax0.9 m/s Tricuspid Valve TR Vmax1.6 m/sRAP (EST) 3 siIjSHNR89.0 mmHg TR Peak GR12.0 mmHg Left Ventricle The left ventricle structure and function is normal. Septal bounce is present consistent with underly ing interventricular conduction delay. There is normal left ventricular wall thickness. LVEF is 55-60 %. The left ventricular diastolic function is normal. Right Ventricle The right ventricle is normal size. The right ventricular systolic function is normal. Atria The left atrium size is normal. The right atrium size is normal. Aortic Valve Aortic valve is trileaflet. No aortic regurgitation is present. Aortic valve sclerosis without stenos is. The right coronary cusp displays nodular calcification. Mitral Valve The mitral valve is normal in structure and function. Trace mitral regurgitation. There is no mitral valve stenosis. Tricuspid Valve The tricuspid valve is normal in structure and function. There is no tricuspid valve regurgitation no samantha. Pulmonic Valve Pulmonic valve is not well visualized. Trace pulmonic regurgitation. Great Vessels The aortic root is normal in size. The IVC is normal in size and collapses >50% with inspiration. Pericardium The pericardium appears normal. No pericardial effusion. Other Information Quality : AdequateRhythm : NSR Conclusion LVEF is 55-60%. Septal bounce is present consistent with underlying interventricular conduction delay. The left ventricular diastolic function is normal. Aortic valve sclerosis without stenosis. The right coronary cusp displays nodular calcification. Trace mitral regurgitation.
--- NOTE | 2025-02-10 12:45 | HMCIMG ---
CHEST 1VW HISTORY: For cardiopulmonary pathology COMPARISON: 02/07/2025 FINDINGS: A frontal projection of the chest was obtained. No acute pulmonary infiltrates is seen. The heart is borderline enlarged. Degenerative changes are seen. Aortic calcifications are seen. IMPRESSION: 1. No acute pulmonary infiltrate is seen.
--- NOTE | 2025-02-10 12:49 | PN ---
[facility] PROGRESS NOTE Date of Service: Feb 10, 2025 Time of Service: 12:42 SUBJECTIVE: [ ] This is a 58 year old male Vincentian-speaking with no pertinent medical surgical history who presents to the ED for complaints of right upper shoulder pain, right upper quadrant abdominal pain, fever, nausea, vomiting and chest pain for three days.Patient reports he has been having 3 episodes of vomiting today. Patient states he is drinking one beer per day, smoke seven cigarettes per week and used marijuana and cocaine. Upon arrival to ER vital signs temperature 102.9, heart rate 111, respiration 20, blood pressure 179/98 saturation 56. Seen and examined patient in the ER awake alert and coherent. Patient appears comfortable. No abdominal tenderness on palpation however patient continued to complain of right shoulder pain. Patient denies palpitation, cough, diarrhea, palpitation and shortness of breaths. Latest vital signs temperature 98.2, heart rate 79, respiration 15, blood pressure 137/80 saturation 99% on room air. Labs: WBC 9, hemoglobin 14, hematocrit 43 platelet count 165 and Neutrophils 87. Sodium 135, chloride 97, glucose 126, troponin 37, lipase 16. Urine toxicology positive for cocaine. CT abdomen and pelvis with contrast result revealed large amount of fecal material is seen in the colon may be related to constipation. Appendix is not well seen limiting evaluation. Chest x-ray result is unremarkable. Right shoulder x-ray still pending at this time. While in the ER patient received Tylenol 1000 mg p.o., fluid resuscitation of NS 30 mL/kilogram over 3 hours, morphine 2 mg IV, and Zofran 4 mg IV and Rocephin 1 g IV. ER called and recommended to admit the patient. 02/08/25 The patient is a 58-year-old male admitted for evaluation of chest pain, abd ominal pain, lower back pain and vomiting fever, nausea for the past3 days. He reports mild improvement in abdominal pain today but ongoing back discomfort and persistent bloating. Pain is localized to the right upper quadrant and epigastric region. He denies palpitation or syncope. The back pain started after a work place fall from about 5-10 feet. He has been evaluated at the urgent care clinic and was prescribed lidocaine patches and pain meds which did not provide relief. Today and feels fatigued, with continued mild nausea but no vomiting. Denies new fever, chills or shortness of breath. No new neurological symptoms. CBC reveals WBC count of 9.1 normal, hemoglobin of 14.1, hematocrit of 41.7, neutrophils of 82.8% elevated CMP is unremarkable with AST 32, ALT,38 and ALP 75. Troponins are elevated from 37-40 today. Protocol is normal urine analysis is positive for hematuria proteins and ketones, WBC and RBC. Urine toxicology screen is positive for cocaine. Culture has been positive for Gram-positive cocci. Chest and shoulder x-rays are negative. CT abdomen pelvis with contrast revealed fecal impaction with colonic distention, gallbladder distention and appendix not visualized limiting the study. 02/09/25 The patient is examined at bedside, he is clinically improving today. He reports that his back pain has significantly improved, and chest pain has slightly improved. He now describes the chest pain as localized to left anterior chest wall sharp in nature reproducible with palpation and movement likely musculoskeletal in etiology. Denies radiation dyspnea and palpitation. No further episodes of vomiting or abdominal pain. Reports slight fatigue but it denies dizziness, diarrhea or fever. Remains on room air, tolerating oral intake and ambulating with minimal discomfort. WBC count is improving with 8.1 normal from 9.1 yesterday, hemoglobin is at 13.4, 39.2. Neutrophils are 71.3 Decreased from 82 point yesterday profile is normal CK is 300 increased CRP is 166.7 increased lactic acid is normal troponin is 38 from 40 blood cultures are positive for Gram-positive cocci sensitivities are still pending urine culture pending right upper quadrant ultrasound no gallstones, no ductal dilation no hydronephrosis. Chest x-ray normal 2D echocardiogram pending today. 02/10/25 Patient was examined at bedside. He reports significant improvement in overall condition. No chest pain today. Slightly lower back discomfort persists but much milder. Reports a headache which she attributes to not drinking enough water he feels dehydrated and notes poor oral intake. Denies any new nausea vomiting or abdominal pain. He is tolerating diet, ambulating without assistance and sleeping well. He denies fever, chills, dizziness, lightheadedness, visual changes, cough or shortness of breath. No signs of infection at present. He remains afebrile and hemodynamically stable on room air. Nutrition has evaluated the patient and recommended initiation of micronutrient replenishing including vitamin-D B12 B complex B6 and vitamin-C daily. WBC count decreased to 4.6 low from 8.1 yesterday hemoglobin and hematocrit are at 14.2 and 41.4 Platelets are decreased to 127 K from 167 K yesterday CMP is unremarkable sodium and chloride are low qdl886 and 95. CRP and CK previously elevated troponin trending down blood culture positive for MRSA urine culture no growth. 2D echo revealed EF of 55-60, septal bounce suggestive of interventricular conduction delay, trace MR, aortic valve sclerosis. REVIEW OF SYSTEMS CONSTITUTIONAL: Denies fevers, chills, or night sweats. No unintentional weight loss reported. NEUROLOGICAL: Denies headache, amaurosis fugax, motor weakness, sensory deficit, vertigo/spinning sensation, gait abnormalities, or tremors. ENT: No hearing loss, otalgia, otorrhea, rhinitis, rhinorrhea, hoarseness, or sore throat. CARDIOVASCULAR: Denies any exertional angina, dyspnea on exertion, orthopnea, paroxysmal nocturnal dyspnea, palpitations, life-threatening arrhythmias, claudication. PULMONARY: Denies any shortness of breath, cough, phlegm/sputum, hemoptysis, pleuritic chest pain. SLEEP: Denies morning headaches, daytime somnolence or napping. Denies difficulty falling asleep, staying asleep, waking from sleep. Denies knowledge of snoring. GASTROINTESTINAL: Denies any type of dysphagia to either liquids or solids. Denies nausea, vomiting, pyrosis, early satiety, abdominal pain, diarrhea, constipation, or changes in stool consistency or caliber. Denies coffee-ground emesis, hematemesis, hematochezia, or melanotic stools. GENITOURINARY: Denies frequency, urgency, nocturia, hematuria or incontinence (Storage/Irritative symptoms.) Low urinary stream, straining to void, urinary intermittency or hesitancy, splitting of the voiding stream, terminal dribbling. ENDOCRINOLOGIC: Denies polyuria, polydipsia, polyphagia or heat/cold intolerances. HEMATOLOGIC: Denies thrombophilia/previous clots, or coagulopathy/bleeding disorders. ONCOLOGIC: Denies personal history of malignancy. DERMATOLOGIC: Denies rashes or pruritus. PSYCHIATRIC: Denies any suicidal or homicidal ideation. Denies hallucinations. PHYSICAL EXAM GENERAL APPEARANCE: The patient is awake, alert, and oriented, in no acute cardiopulmonary distress. NEUROLOGICAL: Cranial nerves II-XII grossly intact. Motor is 5/5 in bilateral upper and lower extremities proximal to distal. No sensory deficits. HEENT: Face is symmetric. Pupils are equal and reactive. Extraocular movements are intact. NECK: Supple. No JVD. No thyromegaly. No submental, submandibular, pre- /postauricular, occipital or supraclavicular lymphadenopathy. CHEST: Normal chest expansion. No Telemetry. LUNGS: Absence of any rales, rhonchi or any wheezing. CARDIOVASCULAR: Regular. S1 and S2 normal. No appreciable rubs, murmurs or gallops. ABDOMEN: Soft, nontender, and nondistended. There is no rebound, voluntary guarding, or rigidity. : Deferred. No [place]. EXTREMITIES: Non-edematous and not cyanotic. No clubbing. Good capillary refill. SKIN: No skin breakdown. Vital Signs (last 8hr) Date Time Temp Pulse Resp B/P (MAP) Pulse Ox O2 Delivery O2 Flow Rate FiO2 02/10/25 08:52 98 Room Air* 0 21 02/10/25 08:27 99.0 73 18 140/87 98 LABS: Laboratory: Test 02/10/25 04:40 02/09/25 15:00 02/09/25 06:20 02/08/25 16:26 Range/Units White Blood Count 4.6 #L 4.8-10.8 K/uL Red Blood Count 4.79 4.50-6.20 MIL/uL Hemoglobin 14.2 14.0-18.0 g/dL Hematocrit 41.4 L 42-54 % Mean Corpuscular Volume 86.4 79-99 fL Mean Corpuscular Hemoglobin 29.6 27.0-33.0 pg Mean Corpuscular Hemoglobin Concent 34.3 32.0-36.0 g/dL Red Cell Distribution Width 13.2 11.0-15.5 % Platelet Count 127 L 130-400 K/uL Mean Platelet Volume 11.4 H 7.5-10.5 fL Immature Granulocyte % (Auto) 0.4 0-1 % Neutrophils (%) (Auto) 60.5 40.0-77.0 % Lymphocytes (%) (Auto) 22.6 21.0-51.0 % Monocytes (%) (Auto) 15.4 H 3.0-13.0 % Eosinophils (%) (Auto) 0.7 0.0-8.0 % Basophils (%) (Auto) 0.4 0.0-5.0 % Neutrophils # (Auto) 2.8 1.8-7.7 K/uL Lymphocytes # (Auto) 1.0 1.0-4.8 K/uL Monocytes # (Auto) 0.7 0.1-1.0 K/uL Eosinophils # (Auto) 0.03 0.00-0.70 K/uL Basophils # (Auto) 0.02 0.00-0.20 K/uL Absolute Immature Granulocyte (auto 0.02 0-1 K/uL Nucleated Red Blood Cells 0.0 0.0-0.19 % Sodium Level 133 L 136-145 mmol/L Potassium Level 3.8 3.5-5.1 mmol/L Chloride Level 95 L 101-111 mmol/L Carbon Dioxide Level 30 21-32 mmol/L Blood Urea Nitrogen 6 L 7-18 mg/dL Creatinine 0.7 0.5-1.3 mg/dL Glomerular Filtration Rate Calc 107 >90 mL/min Random Glucose 103 70-105 mg/dL Total Calcium 8.8 8.5-10.1 mg/dL Total Bilirubin 0.4 # 0.2-1.0 mg/dL Aspartate Amino Transf (AST/SGOT) 32 10-37 U/L Alanine Aminotransferase (ALT/SGPT) 38 12-78 U/L Alkaline Phosphatase 75 50-136 U/L Total Protein 7.1 6.0-8.3 g/dL Albumin 3.0 L 3.5-5.0 g/dL Vitamin D 25-Hydroxy 35.4 30.0-100.0 ng/mL Troponin I High Sensitivity 46 4-75 ng/L Vitamin B12 Level 250 193-986 pg/mL Vancomycin Level Trough 9.0 L 10.0-20.0 UG/ML Magnesium Level 1.80 1.80-2.40 mg/dL Prothrombin Time 10.3 9.6-11.6 SEC Prothromb Time International Ratio 0.97 0.85-1.15 Activated Partial Thromboplast Time 32.7 26.3-35.5 SEC Lactic Acid Level 1.8 0.8-2.5 mmol/L Total Creatine Kinase 300 #H 21-232 U/L C-Reactive Protein, Quantitative 166.70 H 0.5-3.0 mg/L Current Medications Medications (Trade) Dose Ordered Sig/Aaron Route PRN Reason Start Time Stop Time Status Last Admin Dose Admin Acetaminophen (TYLenol 325MG TAB) 650 mg Q4H PRN PO MILD PAIN (1-3) 02/07/25 22:00 03/09/25 21:59 02/08/25 05:07 650 MG Acetaminophen (TYLenol 325MG TAB) 650 mg Q6H PRN PO TEMPERATURE GREATER THAN 101.5 02/07/25 22:00 03/09/25 21:59 02/08/25 19:23 650 MG Aspirin (Aspirin 81mg Ec Tab) 81 mg DAILY PO 02/09/25 09:00 03/11/25 08:59 02/10/25 09:41 81 MG Ceftriaxone Sodium 1 gm/ Sodium Chloride 50 ml @ 100 mls/hr Q24H IV 02/07/25 22:00 02/07/25 22:02 DC Ceftriaxone Sodium (ROCEphine 1G INJ) 1 gm Q24H IVPB 02/07/25 22:30 02/08/25 14:39 DC 02/08/25 00:19 1 GM Cyclobenzaprine HCl (Cyclobenzaprine HCl) 5 mg TID PO 02/08/25 21:00 03/10/25 20:59 02/10/25 09:41 5 MG Famotidine (Pepcid 20mg Vial) 20 mg BID IV 02/08/25 09:00 03/10/25 08:59 02/10/25 09:40 20 MG Heparin Sodium (Porcine) (HEParin 5,000 UNIT VIAL) 5,000 unit Q8H SQ 02/08/25 16:00 03/10/25 15:59 02/10/25 09:42 5,000 UNIT Magnesium Sulfate 50 ml @ 0 mls/hr PROTOCOL PRN IV y 02/08/25 16:00 03/10/25 15:59 Nitroglycerin (Nitrostat) 0.4 mg AD PRN SL CHEST PAIN 02/08/25 16:30 03/10/25 16:29 Ondansetron HCl (zoFRAN 4MG INJ) 4 mg Q6H PRN IV NAUSEA/VOMITING 02/07/25 22:00 03/09/25 21:59 Piperacillin Sod/ Tazobactam Sod (Zosyn 3.375gm+NS 50ml) 3.375 gm Q12H IV 02/08/25 15:00 02/08/25 14:58 DC Piperacillin Sod/ Tazobactam Sod (Zosyn 3.375gm+NS 50ml) 3.375 gm Q12H IV 02/08/25 19:00 02/18/25 18:59 02/10/25 06:19 3.375 GM Polyethylene Glycol (MIRalax 3350 17 GM POWD.PACK) 17 gm BID PO 02/08/25 21:00 03/10/25 20:59 02/10/25 09:41 17 GM Potassium Chloride 100 ml @ 50 mls/hr AD PRN IV POTASSIUM PROTOCOL 02/08/25 16:00 03/10/25 15:59 Sodium Chloride 1,000 ml @ 100 mls/hr Q10H IV 02/07/25 22:00 03/09/25 21:59 02/10/25 06:21 100 MLS/HR Vancomycin HCl 250 ml @ 125 mls/hr Q8H IV 02/08/25 23:30 02/18/25 23:29 02/10/25 09:38 125 MLS/HR Vancomycin HCl (Vancomycin Protocol) 1 each AD IV 02/08/25 15:00 02/22/25 14:59 DIAGNOSTICS / RADIOLOGY: [ ] PATIENT: ANDREW BECKER MR#: [id number] : 1965 SEX: M AGE: 59 LOCATION: [facility] ORDER 1540 STATUS: ADM IN REPORT#: [id number] SERVICE 1539 REASON: Lead for structural heart disease ORDERING PHYSICIAN: QUIN CABRAL MD PROCEDURE: ECHO CMP - ECHO 2-D COMPLETE APPROVED REPORT EXAM: Two-dimensional and M-mode echocardiogram with Doppler and color Doppler. INDICATION ICD: lead for structural heart disease 2D Dimensions RVDd 3.4 cm LVEF(%) 46.2 (>50%) LVED Vol(simp.) 118.0 mL IVSd 1.0 (0.7-1.1cm) FS(%) 23 % LVES Vol(simp.) 57.0 mL LVDd 5.4 (3.8-5.6cm) LA (2D) 3.2 (1.6-4.0cm) LVEF(%, simp.) 52 % PWd 1.1 (0.7-1.1cm) Ao Root(2D) 3.5 (2.0-3.7cm) LA ESV INDEX (BP) 27.20 mL/m2 IVSs 1.2 cm LVOT diam 2.4 (1.8-2.4cm) LVDs 4.2 (2.5-4.0cm) IVC diam 1.1 cm PWs 1.8 cm Deformation Strain Apical 4 -18.0 % Apical 2 -17.0 % Apical 3 -19.0 % Global Strain -18.0 % M-Mode Dimensions EPSS 1.2 cm Ao Root(MM) 3.4 (2.0-3.7cm) Aortic Valve AoV Vmax 1.1 m/s Ao Peak GR 4.7 mmHg LVOT Vmax 0.9 m/s AoV VTI 0.2 m Ao Mean GR 2.5 mmHg LVOT VTI 0.15 m VENECIA (VMAX) 3.8 cm2 VENECIA (VTI) 3.8 cm2 Mitral Valve MV E Vmax 51.4 cm/s DECEL Time 163 ms MV A Vmax 59.7 cm/s P 1/2 T 68 ms E/A ratio 0.9 MVA (PHT) 3.2 cm2 TDI E/E' Medial 5.0 Pulmonary Valve PV Vmax 0.9 m/s Tricuspid Valve TR Vmax 1.6 m/s RAP (EST) 3 mmHg RVSP 15.0 mmHg TR Peak GR 12.0 mmHg Left Ventricle The left ventricle structure and function is normal. Septal bounce is present consistent with underlying interventricular conduction delay. There is normal left ventricular wall thickness. LVEF is 55-60%. The left ventricular diastolic function is normal. Right Ventricle The right ventricle is normal size. The right ventricular systolic function is normal. Atria The left atrium size is normal. The right atrium size is normal. Aortic Valve Aortic valve is trileaflet. No aortic regurgitation is present. Aortic valve sclerosis without stenosis. The right coronary cusp displays nodular calcification. Mitral Valve The mitral valve is normal in structure and function. Trace mitral regurgitation. There is no mitral valve stenosis. Tricuspid Valve The tricuspid valve is normal in structure and function. There is no tricuspid valve regurgitation noted. Pulmonic Valve Pulmonic valve is not well visualized. Trace pulmonic regurgitation. Great Vessels The aortic root is normal in size. The IVC is normal in size and collapses >50% with inspiration. Pericardium The pericardium appears normal. No pericardial effusion. Other Information Quality : Adequate Rhythm : NSR Conclusion LVEF is 55-60%. Septal bounce is present consistent with underlying interventricular conduction delay. The left ventricular diastolic function is normal. Aortic valve sclerosis without stenosis. The right coronary cusp displays nodular calcification. Trace mitral regurgitation. DICTATED BY: ALINE SMITH DO DATE: 02/10/25 09 ELECTRONICALLY SIGNED BY: ALINE SMITH DO DATE: 02/10/25 1011 ASSESSMENT: Acute Chest Pain + Troponin Elevation Sepsis due to Gram-Positive Cocci Bacteremia (Suspected source: biliary vs urinary) Acute Cholecystitis (Suspected Distended GB + RUQ Pain) Severe Constipation with Fecal Loading Acute Back Pain Post-Traumatic Fall Hematuria with Positive UA (No leukocyte esterase) Cocaine Use Substance abuse disorder Hyponatremia POA Cocaine positive POA Active alcohol drinker POA Active cigarette smoker POA PLAN: We will admit patient in medical telemetry We will start patient on heart healthy diet We will start NS @ 100 ml / hr x2 bags and re evaluate We will start on Famotidine 20 mg IV bid for GI prophylaxis We will replace electrolytes as needed per protocol We will add prn medication for fever,pain,cough and nausea We will obtain blood culture and urine culture follow-up result Counseled on smoking, alcohol and recreational use cessation We will request labs in am Further orders to follow depending on above results Acute Chest Pain + Troponin Elevation Plan: * Serial troponins & EKGs * Aspirin 81 mg PO daily * Avoid beta blockers due to active cocaine use * Nitroglycerin PRN for chest pain (monitor BP) * Heparin drip: Hold until cardiology decision CK elevated likely due to muscle injury or cocaine use. Ordered and 2D echocardiogram to evaluate for wall motion abnormalities for left ventricular function. Of in 650 mg p.o. q.6h for musculoskeletal pain. * Telemetry monitoring * Sepsis due to Gram-Positive Cocci Bacteremia (Suspected source: biliary vs urinary) Plan: * Start Vancomycin + Zosyn IV * Repeat blood cultures x2 * Infectious Disease consult placed and will follow the recommendation * Monitor for endocarditis (SIVA if high suspicion) Severe Constipation with Fecal Loading Plan: * Enemas until BM * Docusate + Senna PO daily * Polyethylene glycol (MiraLAX) PO daily * Monitor for BM, distention, vomiting * Hold PO intake if ileus suspected Acute Back Pain Post-Traumatic Fall Plan: * Acetaminophen 650 mg PO q6h * Avoid NSAIDs due to sepsis risk and GI strain * Muscle relaxant (Cyclobenzaprine 5 mg PO TID) if no contraindication * Physical therapy consult when stable Hematuria with Positive UA (No leukocyte esterase) Plan: * Repeat urinalysis with microscopy * Urine culture negative * Renal US if hematuria persists Cocaine Use Recent Active Alcohol use Plan: * Toxicology referral for counseling * Document substance use in discharge summary * Educate on cardiac, renal, and neurologic risks Vitamin-B complex p.o. q.d. Start thiamine B1 100 mg IV daily Basis pyridoxin 50 mg p.o. daily Vitamin-C 500 mg p.o. b.i.d. Vitamin-D 2000 IU p.o. daily. Prophylaxis: DVT prophylaxis: Heparin 5000 units SQ q8h GI prophylaxis: Pantoprazole 40 mg IV daily Pulmonary: Incentive spirometry, ambulation as tolerated ATTESTATION BY PHYSICIAN I have seen and examined the patient. I reviewed the documentation, medical decision making, and treatment plan as noted by the resident above. I agree with the findings and plan of care. Nick Pack MD, RAGHAVA R MD Feb 10, 2025 12:49
--- NOTE | 2025-02-10 14:21 | PN ---
INFECTIOUS DISEASE PROGRESS NOTE Date of Service: Feb 10, 2025 SUBJECTIVE: This is a 59-year-old male patient who was seen and examined at bedside in room 328. Patient is awake, alert and oriented x3. No fever reported throughout the night and current temperature is 99.0. The WBC is 4.6. The final blood culture results came back positive for methicillin-resistant Staphylococcus aureus. We will continue vancomycin and Zosyn IV. We will continue to follow on the urine culture results. A 2D echo done yesterday showed septal bounce, with EF of 55- 60%. We will continue to follow patient. PHYSICAL EXAM EYES: Anicteric. Pupils equal and reactive. HENT: No oral thrush seen, moist Oral mucosa NECK: Supple, no JVD or thyromegaly. LUNGS: Good air entry. No rales, no rhonchi. CARDIOVASCULAR: S1, S2 regular. No murmur heard. ABDOMEN: Soft, non tender, bowel sounds present, no organomegaly CENTRAL NERVOUS SYSTEM: Awake, alert, oriented x 3. SKIN: No rashes, no swelling. LYMPHATICS: No peripheral lymphadenopathy MUSCULOSKELETAL: No joint swelling, erythema or tenderness. Right shoulder pain. EXTREMITIES: No cyanosis or clubbing. BACK: No deformity, no pressure ulcer. GENITOURINARY: Dysuria and frequency. Vital Sign (Last 12 Hours) 02/10/25 02/10/25 02/10/25 02/10/25 04:00 08:27 08:52 12:00 Temp 98.1 99.0 98.1 Pulse 84 73 78 Resp 17 18 18 B/P (MAP) 142/74 140/87 150/86 Pulse Ox 100 98 98 95 O2 Delivery Room Air Room Air* O2 Flow Rate 0 FiO2 21 Intake & Output (last 24hrs) 02/09/25 02/09/25 02/10/25 14:59 22:59 06:59 Intake Total 620.0 ml Output Total 500 ml Balance 120.0 ml LABS: Laboratory: Test 02/10/25 04:40 02/09/25 15:00 02/09/25 06:20 02/08/25 16:26 Range/Units White Blood Count 4.6 #L 4.8-10.8 K/uL Red Blood Count 4.79 4.50-6.20 MIL/uL Hemoglobin 14.2 14.0-18.0 g/dL Hematocrit 41.4 L 42-54 % Mean Corpuscular Volume 86.4 79-99 fL Mean Corpuscular Hemoglobin 29.6 27.0-33.0 pg Mean Corpuscular Hemoglobin Concent 34.3 32.0-36.0 g/dL Red Cell Distribution Width 13.2 11.0-15.5 % Platelet Count 127 L 130-400 K/uL Mean Platelet Volume 11.4 H 7.5-10.5 fL Immature Granulocyte % (Auto) 0.4 0-1 % Neutrophils (%) (Auto) 60.5 40.0-77.0 % Lymphocytes (%) (Auto) 22.6 21.0-51.0 % Monocytes (%) (Auto) 15.4 H 3.0-13.0 % Eosinophils (%) (Auto) 0.7 0.0-8.0 % Basophils (%) (Auto) 0.4 0.0-5.0 % Neutrophils # (Auto) 2.8 1.8-7.7 K/uL Lymphocytes # (Auto) 1.0 1.0-4.8 K/uL Monocytes # (Auto) 0.7 0.1-1.0 K/uL Eosinophils # (Auto) 0.03 0.00-0.70 K/uL Basophils # (Auto) 0.02 0.00-0.20 K/uL Absolute Immature Granulocyte (auto 0.02 0-1 K/uL Nucleated Red Blood Cells 0.0 0.0-0.19 % Sodium Level 133 L 136-145 mmol/L Potassium Level 3.8 3.5-5.1 mmol/L Chloride Level 95 L 101-111 mmol/L Carbon Dioxide Level 30 21-32 mmol/L Blood Urea Nitrogen 6 L 7-18 mg/dL Creatinine 0.7 0.5-1.3 mg/dL Glomerular Filtration Rate Calc 107 >90 mL/min Random Glucose 103 70-105 mg/dL Total Calcium 8.8 8.5-10.1 mg/dL Total Bilirubin 0.4 # 0.2-1.0 mg/dL Aspartate Amino Transf (AST/SGOT) 32 10-37 U/L Alanine Aminotransferase (ALT/SGPT) 38 12-78 U/L Alkaline Phosphatase 75 50-136 U/L Total Protein 7.1 6.0-8.3 g/dL Albumin 3.0 L 3.5-5.0 g/dL Vitamin D 25-Hydroxy 35.4 30.0-100.0 ng/mL Troponin I High Sensitivity 46 4-75 ng/L Vitamin B12 Level 250 193-986 pg/mL Vancomycin Level Trough 9.0 L 10.0-20.0 UG/ML Magnesium Level 1.80 1.80-2.40 mg/dL Prothrombin Time 10.3 9.6-11.6 SEC Prothromb Time International Ratio 0.97 0.85-1.15 Activated Partial Thromboplast Time 32.7 26.3-35.5 SEC Lactic Acid Level 1.8 0.8-2.5 mmol/L Total Creatine Kinase 300 #H 21-232 U/L C-Reactive Protein, Quantitative 166.70 H 0.5-3.0 mg/L DIAGNOSTICS / RADIOLOGY: PATIENT: ANDREW BECKER ACCT: [id number] LOC: [facility] U: [id number] AGE/SX: 59/M ROOM: [facility] RE02/07/[address]: SARITHA CAICEDO MD : 1965 BED: 1 DIS: STATUS: ADM IN TLOC: SPEC: [id number] DARRICK: 02/07/25 STATUS: COMP REQ: [id number] RECD: 02/08/25-[address]: ADRIANE MOSHER SOURCE: BLOOD ENTR: 02/08/25-[address]: STEPHY: BLOOD ORDERED: AERO ID & SENS Procedure Result Mulu Date-Time AEROBIC ID & SENSITIVITIES Final 02/10/25-0711 MRL METHICILLIN-RESISTANT STAPHYLOCOCCUS AUREUS RESULT WAS CALLED BY RICHIE WANG ON 02/10/25 AT 0708. CRITICAL VALUES WERE READ BACK AND ACKNOWLEDGED BY RUBI TAM ([facility]) COLONY DESCRIPTION: DAY 1: GRAM STAIN FROM BLOOD CULTURE BOTTLE GRAM POSITIVE COCCI IN CLUSTERS AEROBIC AND ANAEROBIC BOTTLES ISOLATION IN PROGRESS DAY 2: STAPHYLOCOCCUS AUREUS SENSITIVITY TO FOLLOW MRSA: NOTE: THIS IS A METHICILLIN-RESISTANT STAPH AUREUS STAPHYLOCOCCUS AUREUS-MRSA MRSA M.I.C. RX --------- ---- CLINDAMYCIN 0.5 S ERYTHROMYCIN <=0.5 S GENTAMICIN <=4 S VANCOMYCIN 1 S OXACILLIN MARILIN >2 R RIFAMPIN <=1 S TETRACYCLINE <=4 S TRIMETHOPRIM/SUFLAMETHOXAZOLE <=0.5/9.5 S ASSESSMENT: Methicillin-resistant Staphylococcus aureus bacteremia. Urinary tract infection. Right shoulder pain. Rhabdomyolysis. Polysubstance abuse. PLAN: Continue vancomycin per pharmacy protocol. Continue Zosyn. We will follow up on the urine culture results. Continue pain management. Continue GI prophylaxis. We will monitor electrolytes. This case was reviewed and discussed with my supervising physician and the above assessment and plan was formulated and agreed upon. ATTESTATION BY PHYSICIAN I have seen and examined the patient. I reviewed the documentation, medical decision making, and treatment plan as noted by the mid-level provider above. I agree with the findings and plan of care. JED ELLIOTT MD, MIRTA L [facility] Feb 10, 2025 14:21
[2025-02-10] MEDS: THIAMINE HCL 100 MG/ML 2ML VIAL IVP ONE (14:29)
[2025-02-10] MEDS: PYRIDOXINE HCL 50 MG PO ONE (14:29)
[2025-02-10] MEDS: VITAMIN B COMPLEX 1 CAPSULE PO SCH (14:29)
--- NOTE | 2025-02-10 16:53 | NUR ---
Patient Endorsed to Nursing Patient is able to walk 400 feet at [facility] with no LOB Patient educated on calling before getting up with IV connected. Patient will be D/C from PT schedule Addendum: 02/10/25 at 1655 by SABINA GARCÍA PTA PT Amended: Links added.
[2025-02-10] MEDS ORDERED: GADOTERATE MEGLUMINE 10 MMOL/20 ML VIAL IV ONE (20:48)
[2025-02-10] MEDS: ASCORBIC ACID 500 MG TAB PO SCH (21:42)
[2025-02-10] MEDS: ZOSYN 3.375GM +NS 50ML IV SCH (21:46)
[2025-02-11] VITALS (8 sets, daily range): BP systolic 112–152; BP diastolic 72–81; PULSE 68–103; RESP 16–20; TEMP 98.3–99.2; O2SAT 97–98
[2025-02-11 04:27] LABS: BASOPHILS # (AUTO) 0.04 K/uL (0.00-0.20); BASOPHILS % (AUTO) 0.5 % (0.0-5.0); EOSINOPHILS # (AUTO) 0.12 K/uL (0.00-0.70); EOSINOPHILS % (AUTO) 1.5 % (0.0-8.0); HEMATOCRIT 37.3 % (42-54); IMMATURE GRANULOCYTE ABSOLUTE 0.04 K/uL (0-1); LYMPHOCYTES # (AUTO) 2.3 K/uL (1.0-4.8); LYMPHOCYTES % (AUTO) 29.3 % (21.0-51.0); MEAN CORPUSCULAR HEMOGLOBIN 29.5 pg (27.0-33.0); MEAN CORPUSCULAR VOLUME 86.7 fL (79-99); MONOCYTES # (AUTO) 1.3 K/uL (0.1-1.0); MONOCYTES % (AUTO) 16.3 % (3.0-13.0); NEUTROPHILS % (AUTO) 51.9 % (40.0-77.0); PLATELET COUNT (AUTO) 208 K/uL (130-400); RED CELL DISTRIBUTION WIDTH 13.3 % (11.0-15.5); WHITE BLOOD COUNT (AUTO) 7.8 K/uL (4.8-10.8)
[2025-02-11 04:42] LABS: ALBUMIN 2.8 g/dL (3.5-5.0); BILIRUBIN,TOTAL 0.4 mg/dL (0.2-1.0); CREATININE 0.8 mg/dL (0.5-1.3); POTASSIUM 3.5 mmol/L (3.5-5.1); TOTAL PROTEIN, SERUM 6.8 g/dL (6.0-8.3)
[2025-02-11] MEDS ORDERED: PoTASSium chloRIDE 20MEQ/100ML 100 ML IV PRN (07:00)
[2025-02-11] MEDS ORDERED: PoTASSium chl 10% ELIXIR 20MEQ 20 MEQ/15 ML UDCUP PO PRN (07:00)
--- NOTE | 2025-02-11 08:58 | HMCIMG ---
MRI OF THE THORACIC SPINE WITHOUT GADOLINIUM Clinical Information: R/O OSTEOMYELITIS Comparison: none Technique: Sagittal T1 and T2 FSE, Sagittal STIR and Sagittal proton density images were completed through the thoracic spine. Axial T1, T2 and proton density images were also acquired. FINDINGS: The examination is unremarkable except for the presence of a lower dorsal vertebral body hemangioma, benign lesion. Specifically, no fractures or dislocations are seen. There is adequate alignment of the entire visualized portions of the spine. The disc spaces are preserved. There are no herniations or bulges. No paraspinal abnormalities are seen. IMPRESSION: NORMAL MRI OF THE THORACIC SPINE. No abnormal enhancement or other evidence of osteomyelitis.
[2025-02-11] MEDS: PoTASSium chloRIDE 20MEQ ER 20 MEQ ERTAB PO PRN (09:22)
--- NOTE | 2025-02-11 11:08 | NUR ---
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 ALSO STATED THAT THE LAST TIME HE USED COCAINE "IT WAS NOT GOOD QYALITY THE SMOKE THAT CAME FROM IT WAS BLACK AND THAT IS WHAT MADE HIM SICK".
--- NOTE | 2025-02-11 17:59 | PN ---
[facility] PROGRESS NOTE Date of Service: Feb 11, 2025 Time of Service: 17:56 SUBJECTIVE: [ ] This is a 58 year old male [place]ian-speaking with no pertinent medical surgical history who presents to the ED for complaints of right upper shoulder pain, right upper quadrant abdominal pain, fever, nausea, vomiting and chest pain for three days.Patient reports he has been having 3 episodes of vomiting today. Patient states he is drinking one beer per day, smoke seven cigarettes per week and used marijuana and cocaine. Upon arrival to ER vital signs temperature 102.9, heart rate 111, respiration 20, blood pressure 179/98 saturation 56. Seen and examined patient in the ER awake alert and coherent. Patient appears comfortable. No abdominal tenderness on palpation however patient continued to complain of right shoulder pain. Patient denies palpitation, cough, diarrhea, palpitation and shortness of breaths. Latest vital signs temperature 98.2, heart rate 79, respiration 15, blood pressure 137/80 saturation 99% on room air. Labs: WBC 9, hemoglobin 14, hematocrit 43 platelet count 165 and Neutrophils 87. Sodium 135, chloride 97, glucose 126, troponin 37, lipase 16. Urine toxicology positive for cocaine. CT abdomen and pelvis with contrast result revealed large amount of fecal material is seen in the colon may be related to constipation. Appendix is not well seen limiting evaluation. Chest x-ray result is unremarkable. Right shoulder x-ray still pending at this time. While in the ER patient received Tylenol 1000 mg p.o., fluid resuscitation of NS 30 mL/kilogram over 3 hours, morphine 2 mg IV, and Zofran 4 mg IV and Rocephin 1 g IV. ER called and recommended to admit the patient. 02/08/25 The patient is a 58-year-old male admitted for evaluation of chest pain, abd ominal pain, lower back pain and vomiting fever, nausea for the past3 days. He reports mild improvement in abdominal pain today but ongoing back discomfort and persistent bloating. Pain is localized to the right upper quadrant and epigastric region. He denies palpitation or syncope. The back pain started after a work place fall from about 5-10 feet. He has been evaluated at the urgent care clinic and was prescribed lidocaine patches and pain meds which did not provide relief. Today and feels fatigued, with continued mild nausea but no vomiting. Denies new fever, chills or shortness of breath. No new neurological symptoms. CBC reveals WBC count of 9.1 normal, hemoglobin of 14.1, hematocrit of 41.7, neutrophils of 82.8% elevated CMP is unremarkable with AST 32, ALT,38 and ALP 75. Troponins are elevated from 37-40 today. Protocol is normal urine analysis is positive for hematuria proteins and ketones, WBC and RBC. Urine toxicology screen is positive for cocaine. Culture has been positive for Gram-positive cocci. Chest and shoulder x-rays are negative. CT abdomen pelvis with contrast revealed fecal impaction with colonic distention, gallbladder distention and appendix not visualized limiting the study. 02/09/25 The patient is examined at bedside, he is clinically improving today. He reports that his back pain has significantly improved, and chest pain has slightly improved. He now describes the chest pain as localized to left anterior chest wall sharp in nature reproducible with palpation and movement likely musculoskeletal in etiology. Denies radiation dyspnea and palpitation. No further episodes of vomiting or abdominal pain. Reports slight fatigue but it denies dizziness, diarrhea or fever. Remains on room air, tolerating oral intake and ambulating with minimal discomfort. WBC count is improving with 8.1 normal from 9.1 yesterday, hemoglobin is at 13.4, 39.2. Neutrophils are 71.3 Decreased from 82 point yesterday profile is normal CK is 300 increased CRP is 166.7 increased lactic acid is normal troponin is 38 from 40 blood cultures are positive for Gram-positive cocci sensitivities are still pending urine culture pending right upper quadrant ultrasound no gallstones, no ductal dilation no hydronephrosis. Chest x-ray normal 2D echocardiogram pending today. 02/10/25 Patient was examined at bedside. He reports significant improvement in overall condition. No chest pain today. Slightly lower back discomfort persists but much milder. Reports a headache which she attributes to not drinking enough water he feels dehydrated and notes poor oral intake. Denies any new nausea vomiting or abdominal pain. He is tolerating diet, ambulating without assistance and sleeping well. He denies fever, chills, dizziness, lightheadedness, visual changes, cough or shortness of breath. No signs of infection at present. He remains afebrile and hemodynamically stable on room air. Nutrition has evaluated the patient and recommended initiation of micronutrient replenishing including vitamin-D B12 B complex B6 and vitamin-C daily. WBC count decreased to 4.6 low from 8.1 yesterday hemoglobin and hematocrit are at 14.2 and 41.4 Platelets are decreased to 127 K from 167 K yesterday CMP is unremarkable sodium and chloride are low mok310 and 95. CRP and CK previously elevated troponin trending down blood culture positive for MRSA urine culture no growth. 2D echo revealed EF of 55-60, septal bounce suggestive of interventricular conduction delay, trace MR, aortic valve sclerosis. 02/11/2025. Patient seen and examined along with RN. No new complaints. Continues to have bacteremia with MRSA. ID on board. Remains on IV antibiotic 2D echo no endocarditis. We will repeat blood cultures tomorrow REVIEW OF SYSTEMS CONSTITUTIONAL: Denies fevers, chills, or night sweats. No unintentional weight loss reported. NEUROLOGICAL: Denies headache, amaurosis fugax, motor weakness, sensory deficit, vertigo/spinning sensation, gait abnormalities, or tremors. ENT: No hearing loss, otalgia, otorrhea, rhinitis, rhinorrhea, hoarseness, or sore throat. CARDIOVASCULAR: Denies any exertional angina, dyspnea on exertion, orthopnea, paroxysmal nocturnal dyspnea, palpitations, life-threatening arrhythmias, claudication. PULMONARY: Denies any shortness of breath, cough, phlegm/sputum, hemoptysis, pleuritic chest pain. SLEEP: Denies morning headaches, daytime somnolence or napping. Denies difficulty falling asleep, staying asleep, waking from sleep. Denies knowledge of snoring. GASTROINTESTINAL: Denies any type of dysphagia to either liquids or solids. Denies nausea, vomiting, pyrosis, early satiety, abdominal pain, diarrhea, constipation, or changes in stool consistency or caliber. Denies coffee-ground emesis, hematemesis, hematochezia, or melanotic stools. GENITOURINARY: Denies frequency, urgency, nocturia, hematuria or incontinence (Storage/Irritative symptoms.) Low urinary stream, straining to void, urinary intermittency or hesitancy, splitting of the voiding stream, terminal dribbling. ENDOCRINOLOGIC: Denies polyuria, polydipsia, polyphagia or heat/cold intolerances. HEMATOLOGIC: Denies thrombophilia/previous clots, or coagulopathy/bleeding disorders. ONCOLOGIC: Denies personal history of malignancy. DERMATOLOGIC: Denies rashes or pruritus. PSYCHIATRIC: Denies any suicidal or homicidal ideation. Denies hallucinations. PHYSICAL EXAM GENERAL APPEARANCE: The patient is awake, alert, and oriented, in no acute cardiopulmonary distress. NEUROLOGICAL: Cranial nerves II-XII grossly intact. Motor is 5/5 in bilateral upper and lower extremities proximal to distal. No sensory deficits. HEENT: Face is symmetric. Pupils are equal and reactive. Extraocular movements are intact. NECK: Supple. No JVD. No thyromegaly. No submental, submandibular, pre- /postauricular, occipital or supraclavicular lymphadenopathy. CHEST: Normal chest expansion. No Telemetry. LUNGS: Absence of any rales, rhonchi or any wheezing. CARDIOVASCULAR: Regular. S1 and S2 normal. No appreciable rubs, murmurs or gallops. ABDOMEN: Soft, nontender, and nondistended. There is no rebound, voluntary guarding, or rigidity. : Deferred. No [place]. EXTREMITIES: Non-edematous and not cyanotic. No clubbing. Good capillary refill. SKIN: No skin breakdown. Vital Signs (last 8hr) Date Time Temp Pulse Resp B/P (MAP) Pulse Ox O2 Delivery O2 Flow Rate FiO2 02/11/25 16:07 98.4 95 17 112/72 98 Room Air 02/11/25 11:24 98.4 80 17 124/73 98 Room Air LABS: Laboratory: Test 02/11/25 15:25 02/11/25 12:41 02/11/25 04:10 02/10/25 17:08 Range/Units Vancomycin Level Trough 10.8 10.0-20.0 UG/ML Troponin I High Sensitivity 25 4-75 ng/L White Blood Count 7.8 # 4.8-10.8 K/uL Red Blood Count 4.30 L 4.50-6.20 MIL/uL Hemoglobin 12.7 L 14.0-18.0 g/dL Hematocrit 37.3 L 42-54 % Mean Corpuscular Volume 86.7 79-99 fL Mean Corpuscular Hemoglobin 29.5 27.0-33.0 pg Mean Corpuscular Hemoglobin Concent 34.0 32.0-36.0 g/dL Red Cell Distribution Width 13.3 11.0-15.5 % Platelet Count 208 # 130-400 K/uL Mean Platelet Volume 9.9 7.5-10.5 fL Immature Granulocyte % (Auto) 0.5 0-1 % Neutrophils (%) (Auto) 51.9 40.0-77.0 % Lymphocytes (%) (Auto) 29.3 21.0-51.0 % Monocytes (%) (Auto) 16.3 H 3.0-13.0 % Eosinophils (%) (Auto) 1.5 0.0-8.0 % Basophils (%) (Auto) 0.5 0.0-5.0 % Neutrophils # (Auto) 4.0 1.8-7.7 K/uL Lymphocytes # (Auto) 2.3 1.0-4.8 K/uL Monocytes # (Auto) 1.3 H 0.1-1.0 K/uL Eosinophils # (Auto) 0.12 0.00-0.70 K/uL Basophils # (Auto) 0.04 0.00-0.20 K/uL Absolute Immature Granulocyte (auto 0.04 0-1 K/uL Nucleated Red Blood Cells 0.0 0.0-0.19 % Sodium Level 134 L 136-145 mmol/L Potassium Level 3.5 3.5-5.1 mmol/L Chloride Level 97 L 101-111 mmol/L Carbon Dioxide Level 29 21-32 mmol/L Blood Urea Nitrogen 7 7-18 mg/dL Creatinine 0.8 0.5-1.3 mg/dL Glomerular Filtration Rate Calc 103 >90 mL/min Random Glucose 115 H 70-105 mg/dL Total Calcium 8.4 L 8.5-10.1 mg/dL Total Bilirubin 0.4 0.2-1.0 mg/dL Aspartate Amino Transf (AST/SGOT) 30 10-37 U/L Alanine Aminotransferase (ALT/SGPT) 42 12-78 U/L Alkaline Phosphatase 73 50-136 U/L Total Protein 6.8 6.0-8.3 g/dL Albumin 2.8 L 3.5-5.0 g/dL Total Creatine Kinase 19 #L 21-232 U/L C-Reactive Protein, Quantitative 104.60 H 0.5-3.0 mg/L Test 02/10/25 04:40 Range/Units Vitamin D 25-Hydroxy 35.4 30.0-100.0 ng/mL Current Medications Medications (Trade) Dose Ordered Sig/Aaron Route PRN Reason Start Time Stop Time Status Last Admin Dose Admin Acetaminophen (TYLenol 325MG TAB) 650 mg Q4H PRN PO MILD PAIN (1-3) 02/07/25 22:00 03/09/25 21:59 02/08/25 05:07 650 MG Acetaminophen (TYLenol 325MG TAB) 650 mg Q6H PRN PO TEMPERATURE GREATER THAN 101.5 02/07/25 22:00 03/09/25 21:59 02/08/25 19:23 650 MG Ascorbic Acid (Vitamin C 500mg Tab) 500 mg BID PO 02/10/25 21:00 03/12/25 20:59 02/11/25 09:22 500 MG Aspirin (Aspirin 81mg Ec Tab) 81 mg DAILY PO 02/09/25 09:00 03/11/25 08:59 02/11/25 09:22 81 MG Ceftriaxone Sodium 1 gm/ Sodium Chloride 50 ml @ 100 mls/hr Q24H IV 02/07/25 22:00 02/07/25 22:02 DC Ceftriaxone Sodium (ROCEphine 1G INJ) 1 gm Q24H IVPB 02/07/25 22:30 02/08/25 14:39 DC 02/08/25 00:19 1 GM Cyclobenzaprine HCl (Cyclobenzaprine HCl) 5 mg TID PO 02/08/25 21:00 03/10/25 20:59 02/11/25 15:45 5 MG Famotidine (Pepcid 20mg Vial) 20 mg BID IV 02/08/25 09:00 03/10/25 08:59 02/11/25 09:21 20 MG Heparin Sodium (Porcine) (HEParin 5,000 UNIT VIAL) 5,000 unit Q8H SQ 02/08/25 16:00 03/10/25 15:59 02/11/25 15:50 5,000 UNIT Magnesium Sulfate 50 ml @ 0 mls/hr PROTOCOL PRN IV y 02/08/25 16:00 03/10/25 15:59 Nitroglycerin (Nitrostat) 0.4 mg AD PRN SL CHEST PAIN 02/08/25 16:30 03/10/25 16:29 Ondansetron HCl (zoFRAN 4MG INJ) 4 mg Q6H PRN IV NAUSEA/VOMITING 02/07/25 22:00 03/09/25 21:59 Piperacillin Sod/ Tazobactam Sod (Zosyn 3.375gm+NS 50ml) 3.375 gm Q12H IV 02/10/25 22:00 02/20/25 21:59 02/11/25 09:19 3.375 GM Piperacillin Sod/ Tazobactam Sod (Zosyn 3.375gm+NS 50ml) 3.375 gm Q12H IV 02/08/25 15:00 02/08/25 14:58 DC Piperacillin Sod/ Tazobactam Sod (Zosyn 3.375gm+NS 50ml) 3.375 gm Q12H IV 02/08/25 19:00 02/10/25 19:50 DC 02/10/25 06:19 3.375 GM Polyethylene Glycol (MIRalax 3350 17 GM POWD.PACK) 17 gm BID PO 02/08/25 21:00 03/10/25 20:59 02/11/25 09:22 17 GM Potassium Chloride 100 ml @ 50 mls/hr AD PRN IV POTASSIUM PROTOCOL 02/08/25 16:00 03/10/25 15:59 Potassium Chloride 100 ml @ 100 mls/hr AD PRN IV POTASSIUM PROTOCOL 02/11/25 07:00 03/13/25 06:59 Potassium Chloride (K-Dur/Klor-Con 20meq) 20 meq AD PRN PO POTASSIUM PROTOCOL 02/11/25 07:00 03/13/25 06:59 02/11/25 15:49 20 MEQ Potassium Chloride (KCl 10% Elixir 20meq/15ml) 20 meq AD PRN PO POTASSIUM PROTOCOL 02/11/25 07:00 03/13/25 06:59 Sodium Chloride 1,000 ml @ 100 mls/hr Q10H IV 02/07/25 22:00 03/09/25 21:59 02/11/25 09:17 100 MLS/HR Vancomycin HCl 250 ml @ 125 mls/hr Q8H IV 02/08/25 23:30 02/18/25 23:29 02/11/25 15:52 125 MLS/HR Vancomycin HCl (Vancomycin Protocol) 1 each AD IV 02/08/25 15:00 02/22/25 14:59 Vitamin B Complex/ Folic Acid (B Complex) 1 cap DAILY PO 02/10/25 13:00 5/11/25 12:59 02/11/25 09:23 1 CAP DIAGNOSTICS / RADIOLOGY: [ ] ASSESSMENT: Acute Chest Pain + Troponin Elevation Sepsis due to Gram-Positive Cocci Bacteremia (Suspected source: biliary vs urinary) Acute Cholecystitis (Suspected Distended GB + RUQ Pain) Severe Constipation with Fecal Loading Acute Back Pain Post-Traumatic Fall Hematuria with Positive UA (No leukocyte esterase) Cocaine Use Substance abuse disorder POA Hyponatremia POA Cocaine positive POA Active alcohol drinker POA Active cigarette smoker POA PLAN: Counseled on smoking, alcohol and recreational use cessation We will request labs in am Further orders to follow depending on above results Acute Chest Pain + Troponin Elevation Plan: * Serial troponins & EKGs * Aspirin 81 mg PO daily * Avoid beta blockers due to active cocaine use CK elevated likely due to muscle injury or cocaine use. Ordered and 2D echocardiogram to evaluate for wall motion abnormalities for left ventricular function. Of in 650 mg p.o. q.6h for musculoskeletal pain. * Telemetry monitoring * Sepsis due to MRSA. Likely source could be cocaine induced translocation of MRSA from nose. We will get MRSA nasal screen. (Suspected source: biliary vs urinary) Plan: * Vancomycin + Zosyn IV * Repeat blood cultures x2 Severe Constipation with Fecal Loading Plan: * Enemas until BM * Docusate + Senna PO daily * Polyethylene glycol (MiraLAX) PO daily * Monitor for BM, distention, vomiting * Hold PO intake if ileus suspected Acute Back Pain Post-Traumatic Fall Plan: * Acetaminophen 650 mg PO q6h * Avoid NSAIDs due to sepsis risk and GI strain * Muscle relaxant (Cyclobenzaprine 5 mg PO TID) if no contraindication * Physical therapy consult when stable Hematuria with Positive UA (No leukocyte esterase) Plan: * Repeat urinalysis with microscopy * Urine culture negative * Renal US if hematuria persists Cocaine Use Recent Active Alcohol use Plan: * Toxicology referral for counseling * Document substance use in discharge summary * Educate on cardiac, renal, and neurologic risks Vitamin-B complex p.o. q.d. Start thiamine B1 100 mg IV daily Basis pyridoxin 50 mg p.o. daily Vitamin-C 500 mg p.o. b.i.d. Vitamin-D 2000 IU p.o. daily. Prophylaxis: DVT prophylaxis: Heparin 5000 units SQ q8h GI prophylaxis: Pantoprazole 40 mg IV daily Pulmonary: Incentive spirometry, ambulation as tolerated RADHA PINEDA MD Feb 11, 2025 17:59
[2025-02-12] VITALS (8 sets, daily range): BP systolic 122–136; BP diastolic 68–78; PULSE 69–79; RESP 16–22; TEMP 98.1–98.7; O2SAT 6–99
[2025-02-12 06:59] LABS: BASOPHILS # (AUTO) 0.06 K/uL (0.00-0.20); BASOPHILS % (AUTO) 0.8 % (0.0-5.0); EOSINOPHILS % (AUTO) 2.6 % (0.0-8.0); HEMATOCRIT 35.2 % (42-54); IMMATURE GRANULOCYTE ABSOLUTE 0.05 K/uL (0-1); LYMPHOCYTES # (AUTO) 2.2 K/uL (1.0-4.8); LYMPHOCYTES % (AUTO) 27.7 % (21.0-51.0); MEAN CORPUSCULAR HEMOGLOBIN 29.4 pg (27.0-33.0); MEAN CORPUSCULAR HGB CONC 33.8 g/dL (32.0-36.0); MEAN CORPUSCULAR VOLUME 86.9 fL (79-99); MONOCYTES # (AUTO) 1.3 K/uL (0.1-1.0); MONOCYTES % (AUTO) 16.4 % (3.0-13.0); NEUTROPHILS # (AUTO) 4.1 K/uL (1.8-7.7); NEUTROPHILS % (AUTO) 51.9 % (40.0-77.0); PLATELET COUNT (AUTO) 236 K/uL (130-400); RED BLOOD CELL COUNT(AUTO) 4.05 MIL/uL (4.50-6.20); RED CELL DISTRIBUTION WIDTH 13.3 % (11.0-15.5); WHITE BLOOD COUNT (AUTO) 7.8 K/uL (4.8-10.8)
[2025-02-12 07:21] LABS: CREATININE 0.6 mg/dL (0.5-1.3); POTASSIUM 3.8 mmol/L (3.5-5.1)
--- NOTE | 2025-02-12 12:33 | PN ---
[facility] PROGRESS NOTE Date of Service: Feb 12, 2025 Time of Service: 12:27 SUBJECTIVE: [ ] This is a 58 year old male Martiniquais-speaking with no pertinent medical surgical history who presents to the ED for complaints of right upper shoulder pain, right upper quadrant abdominal pain, fever, nausea, vomiting and chest pain for three days.Patient reports he has been having 3 episodes of vomiting today. Patient states he is drinking one beer per day, smoke seven cigarettes per week and used marijuana and cocaine. Upon arrival to ER vital signs temperature 102.9, heart rate 111, respiration 20, blood pressure 179/98 saturation 56. Seen and examined patient in the ER awake alert and coherent. Patient appears comfortable. No abdominal tenderness on palpation however patient continued to complain of right shoulder pain. Patient denies palpitation, cough, diarrhea, palpitation and shortness of breaths. Latest vital signs temperature 98.2, heart rate 79, respiration 15, blood pressure 137/80 saturation 99% on room air. Labs: WBC 9, hemoglobin 14, hematocrit 43 platelet count 165 and Neutrophils 87. Sodium 135, chloride 97, glucose 126, troponin 37, lipase 16. Urine toxicology positive for cocaine. CT abdomen and pelvis with contrast result revealed large amount of fecal material is seen in the colon may be related to constipation. Appendix is not well seen limiting evaluation. Chest x-ray result is unremarkable. Right shoulder x-ray still pending at this time. While in the ER patient received Tylenol 1000 mg p.o., fluid resuscitation of NS 30 mL/kilogram over 3 hours, morphine 2 mg IV, and Zofran 4 mg IV and Rocephin 1 g IV. ER called and recommended to admit the patient. 02/08/25 The patient is a 58-year-old male admitted for evaluation of chest pain, abd ominal pain, lower back pain and vomiting fever, nausea for the past3 days. He reports mild improvement in abdominal pain today but ongoing back discomfort and persistent bloating. Pain is localized to the right upper quadrant and epigastric region. He denies palpitation or syncope. The back pain started after a work place fall from about 5-10 feet. He has been evaluated at the urgent care clinic and was prescribed lidocaine patches and pain meds which did not provide relief. Today and feels fatigued, with continued mild nausea but no vomiting. Denies new fever, chills or shortness of breath. No new neurological symptoms. CBC reveals WBC count of 9.1 normal, hemoglobin of 14.1, hematocrit of 41.7, neutrophils of 82.8% elevated CMP is unremarkable with AST 32, ALT,38 and ALP 75. Troponins are elevated from 37-40 today. Protocol is normal urine analysis is positive for hematuria proteins and ketones, WBC and RBC. Urine toxicology screen is positive for cocaine. Culture has been positive for Gram-positive cocci. Chest and shoulder x-rays are negative. CT abdomen pelvis with contrast revealed fecal impaction with colonic distention, gallbladder distention and appendix not visualized limiting the study. 02/09/25 The patient is examined at bedside, he is clinically improving today. He reports that his back pain has significantly improved, and chest pain has slightly improved. He now describes the chest pain as localized to left anterior chest wall sharp in nature reproducible with palpation and movement likely musculoskeletal in etiology. Denies radiation dyspnea and palpitation. No further episodes of vomiting or abdominal pain. Reports slight fatigue but it denies dizziness, diarrhea or fever. Remains on room air, tolerating oral intake and ambulating with minimal discomfort. WBC count is improving with 8.1 normal from 9.1 yesterday, hemoglobin is at 13.4, 39.2. Neutrophils are 71.3 Decreased from 82 point yesterday profile is normal CK is 300 increased CRP is 166.7 increased lactic acid is normal troponin is 38 from 40 blood cultures are positive for Gram-positive cocci sensitivities are still pending urine culture pending right upper quadrant ultrasound no gallstones, no ductal dilation no hydronephrosis. Chest x-ray normal 2D echocardiogram pending today. 02/10/25 Patient was examined at bedside. He reports significant improvement in overall condition. No chest pain today. Slightly lower back discomfort persists but much milder. Reports a headache which she attributes to not drinking enough water he feels dehydrated and notes poor oral intake. Denies any new nausea vomiting or abdominal pain. He is tolerating diet, ambulating without assistance and sleeping well. He denies fever, chills, dizziness, lightheadedness, visual changes, cough or shortness of breath. No signs of infection at present. He remains afebrile and hemodynamically stable on room air. Nutrition has evaluated the patient and recommended initiation of micronutrient replenishing including vitamin-D B12 B complex B6 and vitamin-C daily. WBC count decreased to 4.6 low from 8.1 yesterday hemoglobin and hematocrit are at 14.2 and 41.4 Platelets are decreased to 127 K from 167 K yesterday CMP is unremarkable sodium and chloride are low pny173 and 95. CRP and CK previously elevated troponin trending down blood culture positive for MRSA urine culture no growth. 2D echo revealed EF of 55-60, septal bounce suggestive of interventricular conduction delay, trace MR, aortic valve sclerosis. 02/11/2025. Patient seen and examined along with RN. No new complaints. Continues to have bacteremia with MRSA. ID on board. Remains on IV antibiotic 2D echo no endocarditis. We will repeat blood cultures tomorrow. 02/12/2025. Patient seen and examined along with RN. No new complaints. Repeat blood cultures taken so far negative. REVIEW OF SYSTEMS CONSTITUTIONAL: Denies fevers, chills, or night sweats. No unintentional weight loss reported. NEUROLOGICAL: Denies headache, amaurosis fugax, motor weakness, sensory deficit, vertigo/spinning sensation, gait abnormalities, or tremors. ENT: No hearing loss, otalgia, otorrhea, rhinitis, rhinorrhea, hoarseness, or sore throat. CARDIOVASCULAR: Denies any exertional angina, dyspnea on exertion, orthopnea, paroxysmal nocturnal dyspnea, palpitations, life-threatening arrhythmias, claudication. PULMONARY: Denies any shortness of breath, cough, phlegm/sputum, hemoptysis, pleuritic chest pain. SLEEP: Denies morning headaches, daytime somnolence or napping. Denies difficulty falling asleep, staying asleep, waking from sleep. Denies knowledge of snoring. GASTROINTESTINAL: Denies any type of dysphagia to either liquids or solids. Denies nausea, vomiting, pyrosis, early satiety, abdominal pain, diarrhea, constipation, or changes in stool consistency or caliber. Denies coffee-ground emesis, hematemesis, hematochezia, or melanotic stools. GENITOURINARY: Denies frequency, urgency, nocturia, hematuria or incontinence (Storage/Irritative symptoms.) Low urinary stream, straining to void, urinary intermittency or hesitancy, splitting of the voiding stream, terminal dribbling. ENDOCRINOLOGIC: Denies polyuria, polydipsia, polyphagia or heat/cold intolerances. HEMATOLOGIC: Denies thrombophilia/previous clots, or coagulopathy/bleeding disorders. ONCOLOGIC: Denies personal history of malignancy. DERMATOLOGIC: Denies rashes or pruritus. PSYCHIATRIC: Denies any suicidal or homicidal ideation. Denies hallucinations. PHYSICAL EXAM GENERAL APPEARANCE: The patient is awake, alert, and oriented, in no acute cardiopulmonary distress. NEUROLOGICAL: Cranial nerves II-XII grossly intact. Motor is 5/5 in bilateral upper and lower extremities proximal to distal. No sensory deficits. HEENT: Face is symmetric. Pupils are equal and reactive. Extraocular movements are intact. NECK: Supple. No JVD. No thyromegaly. No submental, submandibular, pre- /postauricular, occipital or supraclavicular lymphadenopathy. CHEST: Normal chest expansion. No Telemetry. LUNGS: Absence of any rales, rhonchi or any wheezing. CARDIOVASCULAR: Regular. S1 and S2 normal. No appreciable rubs, murmurs or gallops. ABDOMEN: Soft, nontender, and nondistended. There is no rebound, voluntary guarding, or rigidity. : Deferred. No [place]. EXTREMITIES: Non-edematous and not cyanotic. No clubbing. Good capillary refill. SKIN: No skin breakdown. Vital Signs (last 8hr) Date Time Temp Pulse Resp B/P (MAP) Pulse Ox O2 Delivery O2 Flow Rate FiO2 02/12/25 08:44 98.4 73 19 125/68 99 LABS: Laboratory: Test 02/12/25 06:50 02/11/25 15:25 02/11/25 12:41 02/11/25 04:10 Range/Units White Blood Count 7.8 4.8-10.8 K/uL Red Blood Count 4.05 L 4.50-6.20 MIL/uL Hemoglobin 11.9 L 14.0-18.0 g/dL Hematocrit 35.2 L 42-54 % Mean Corpuscular Volume 86.9 79-99 fL Mean Corpuscular Hemoglobin 29.4 27.0-33.0 pg Mean Corpuscular Hemoglobin Concent 33.8 32.0-36.0 g/dL Red Cell Distribution Width 13.3 11.0-15.5 % Platelet Count 236 130-400 K/uL Mean Platelet Volume 9.7 7.5-10.5 fL Immature Granulocyte % (Auto) 0.6 0-1 % Neutrophils (%) (Auto) 51.9 40.0-77.0 % Lymphocytes (%) (Auto) 27.7 21.0-51.0 % Monocytes (%) (Auto) 16.4 H 3.0-13.0 % Eosinophils (%) (Auto) 2.6 0.0-8.0 % Basophils (%) (Auto) 0.8 0.0-5.0 % Neutrophils # (Auto) 4.1 1.8-7.7 K/uL Lymphocytes # (Auto) 2.2 1.0-4.8 K/uL Monocytes # (Auto) 1.3 H 0.1-1.0 K/uL Eosinophils # (Auto) 0.20 0.00-0.70 K/uL Basophils # (Auto) 0.06 0.00-0.20 K/uL Absolute Immature Granulocyte (auto 0.05 0-1 K/uL Nucleated Red Blood Cells 0.0 0.0-0.19 % Sodium Level 136 136-145 mmol/L Potassium Level 3.8 3.5-5.1 mmol/L Chloride Level 100 L 101-111 mmol/L Carbon Dioxide Level 28 21-32 mmol/L Blood Urea Nitrogen 7 7-18 mg/dL Creatinine 0.6 0.5-1.3 mg/dL Glomerular Filtration Rate Calc 113 >90 mL/min Random Glucose 97 70-105 mg/dL Total Calcium 8.7 8.5-10.1 mg/dL Vancomycin Level Trough 10.8 10.0-20.0 UG/ML Troponin I High Sensitivity 25 4-75 ng/L Total Bilirubin 0.4 0.2-1.0 mg/dL Aspartate Amino Transf (AST/SGOT) 30 10-37 U/L Alanine Aminotransferase (ALT/SGPT) 42 12-78 U/L Alkaline Phosphatase 73 50-136 U/L Total Protein 6.8 6.0-8.3 g/dL Albumin 2.8 L 3.5-5.0 g/dL Test 02/10/25 17:08 Range/Units Total Creatine Kinase 19 #L 21-232 U/L C-Reactive Protein, Quantitative 104.60 H 0.5-3.0 mg/L Current Medications Medications (Trade) Dose Ordered Sig/Aaron Route PRN Reason Start Time Stop Time Status Last Admin Dose Admin Acetaminophen (TYLenol 325MG TAB) 650 mg Q4H PRN PO MILD PAIN (1-3) 02/07/25 22:00 03/09/25 21:59 02/08/25 05:07 650 MG Acetaminophen (TYLenol 325MG TAB) 650 mg Q6H PRN PO TEMPERATURE GREATER THAN 101.5 02/07/25 22:00 03/09/25 21:59 02/08/25 19:23 650 MG Ascorbic Acid (Vitamin C 500mg Tab) 500 mg BID PO 02/10/25 21:00 03/12/25 20:59 02/12/25 09:27 500 MG Aspirin (Aspirin 81mg Ec Tab) 81 mg DAILY PO 02/09/25 09:00 03/11/25 08:59 02/12/25 09:27 81 MG Ceftriaxone Sodium 1 gm/ Sodium Chloride 50 ml @ 100 mls/hr Q24H IV 02/07/25 22:00 02/07/25 22:02 DC Ceftriaxone Sodium (ROCEphine 1G INJ) 1 gm Q24H IVPB 02/07/25 22:30 02/08/25 14:39 DC 02/08/25 00:19 1 GM Cyclobenzaprine HCl (Cyclobenzaprine HCl) 5 mg TID PO 02/08/25 21:00 03/10/25 20:59 02/12/25 09:28 5 MG Famotidine (Pepcid 20mg Vial) 20 mg BID IV 02/08/25 09:00 03/10/25 08:59 02/12/25 09:28 20 MG Heparin Sodium (Porcine) (HEParin 5,000 UNIT VIAL) 5,000 unit Q8H SQ 02/08/25 16:00 03/10/25 15:59 02/12/25 09:29 5,000 UNIT Magnesium Sulfate 50 ml @ 0 mls/hr PROTOCOL PRN IV y 02/08/25 16:00 03/10/25 15:59 Nitroglycerin (Nitrostat) 0.4 mg AD PRN SL CHEST PAIN 02/08/25 16:30 03/10/25 16:29 Ondansetron HCl (zoFRAN 4MG INJ) 4 mg Q6H PRN IV NAUSEA/VOMITING 02/07/25 22:00 03/09/25 21:59 Piperacillin Sod/ Tazobactam Sod (Zosyn 3.375gm+NS 50ml) 3.375 gm Q12H IV 02/10/25 22:00 02/20/25 21:59 02/12/25 09:28 3.375 GM Piperacillin Sod/ Tazobactam Sod (Zosyn 3.375gm+NS 50ml) 3.375 gm Q12H IV 02/08/25 15:00 02/08/25 14:58 DC Piperacillin Sod/ Tazobactam Sod (Zosyn 3.375gm+NS 50ml) 3.375 gm Q12H IV 02/08/25 19:00 02/10/25 19:50 DC 02/10/25 06:19 3.375 GM Polyethylene Glycol (MIRalax 3350 17 GM POWD.PACK) 17 gm BID PO 02/08/25 21:00 03/10/25 20:59 02/11/25 20:16 17 GM Potassium Chloride 100 ml @ 50 mls/hr AD PRN IV POTASSIUM PROTOCOL 02/08/25 16:00 03/10/25 15:59 Potassium Chloride 100 ml @ 100 mls/hr AD PRN IV POTASSIUM PROTOCOL 02/11/25 07:00 03/13/25 06:59 Potassium Chloride (K-Dur/Klor-Con 20meq) 20 meq AD PRN PO POTASSIUM PROTOCOL 02/11/25 07:00 03/13/25 06:59 02/11/25 15:49 20 MEQ Potassium Chloride (KCl 10% Elixir 20meq/15ml) 20 meq AD PRN PO POTASSIUM PROTOCOL 02/11/25 07:00 03/13/25 06:59 Sodium Chloride 1,000 ml @ 100 mls/hr Q10H IV 02/07/25 22:00 03/09/25 21:59 02/12/25 04:45 100 MLS/HR Vancomycin HCl 250 ml @ 125 mls/hr Q8H IV 02/08/25 23:30 02/18/25 23:29 02/12/25 06:32 125 MLS/HR Vancomycin HCl (Vancomycin Protocol) 1 each AD IV 02/08/25 15:00 02/22/25 14:59 Vitamin B Complex/ Folic Acid (B Complex) 1 cap DAILY PO 02/10/25 13:00 03/12/25 12:59 02/12/25 09:27 1 CAP DIAGNOSTICS / RADIOLOGY: [ ] ASSESSMENT: Acute Chest Pain + Troponin Elevation Sepsis due to Gram-Positive Cocci Bacteremia (Suspected source: biliary vs urinary) Acute Cholecystitis (Suspected Distended GB + RUQ Pain) Severe Constipation with Fecal Loading Acute Back Pain Post-Traumatic Fall Hematuria with Positive UA (No leukocyte esterase) Cocaine Use Substance abuse disorder POA Hyponatremia POA Cocaine positive POA Active alcohol drinker POA Active cigarette smoker POA PLAN: Counseled on smoking, alcohol and recreational use cessation We will request labs in am Further orders to follow depending on above results Acute Chest Pain + Troponin Elevation Plan: * Serial troponins & EKGs * Aspirin 81 mg PO daily * Avoid beta blockers due to active cocaine use CK elevated likely due to muscle injury or cocaine use. Ordered and 2D echocardiogram to evaluate for wall motion abnormalities for left ventricular function. Of in 650 mg p.o. q.6h for musculoskeletal pain. * Telemetry monitoring * Sepsis due to MRSA. Likely source could be cocaine induced translocation of MRSA from nose. We will get MRSA nasal screen. Plan: * Vancomycin + Zosyn IV * Repeat blood cultures x2 Severe Constipation with Fecal Loading Plan: * Enemas until BM * Docusate + Senna PO daily * Polyethylene glycol (MiraLAX) PO daily * Monitor for BM, distention, vomiting * Hold PO intake if ileus suspected Acute Back Pain Post-Traumatic Fall Plan: * Acetaminophen 650 mg PO q6h * Avoid NSAIDs due to sepsis risk and GI strain * Muscle relaxant (Cyclobenzaprine 5 mg PO TID) if no contraindication * Physical therapy consult when stable Hematuria with Positive UA (No leukocyte esterase) Plan: * Repeat urinalysis with microscopy * Urine culture negative * Renal US if hematuria persists Cocaine Use Recent Active Alcohol use Plan: * Toxicology referral for counseling * Document substance use in discharge summary * Educate on cardiac, renal, and neurologic risks Vitamin-B complex p.o. q.d. Start thiamine B1 100 mg IV daily Basis pyridoxin 50 mg p.o. daily Vitamin-C 500 mg p.o. b.i.d. Vitamin-D 2000 IU p.o. daily. Prophylaxis: DVT prophylaxis: Heparin 5000 units SQ q8h GI prophylaxis: Pantoprazole 40 mg IV daily Pulmonary: Incentive spirometry, ambulation as tolerated RADHA PINEDA MD Feb 12, 2025 12:33
[2025-02-13 03:56] VITALS: BP 127/79; PULSE 72; RESP 20; TEMP 98.4
[2025-02-13 08:12] VITALS: BP 125/75; PULSE 73; RESP 18; TEMP 97.8
[2025-02-13 10:19] VITALS: O2SAT 97
[2025-02-13 11:48] VITALS: BP 114/66; PULSE 69; RESP 18; TEMP 97.9
--- NOTE | 2025-02-13 14:01 | PN ---
INFECTIOUS DISEASE PROGRESS NOTE Date of Service: Feb 13, 2025 SUBJECTIVE: This is a 59-year-old male patient who was seen and examined at bedside in room 328. Patient is awake, alert and oriented x 3. Patient is afebrile this morning, temperature is 97.9. We will discontinue Zosyn IV and continue vancomycin IV. Patient will need linezolid IV every 12 hours for [address] midline. Case management to evaluate. PHYSICAL EXAM EYES: Anicteric. Pupils equal and reactive. HENT: No oral thrush seen, moist Oral mucosa NECK: Supple, no JVD or thyromegaly. LUNGS: Good air entry. No rales, no rhonchi. CARDIOVASCULAR: S1, S2 regular. No murmur heard. ABDOMEN: Soft, non tender, bowel sounds present, no organomegaly CENTRAL NERVOUS SYSTEM: Awake, alert, oriented x 3. SKIN: No rashes, no swelling. LYMPHATICS: No peripheral lymphadenopathy MUSCULOSKELETAL: No joint swelling, erythema or tenderness. Right shoulder pain. EXTREMITIES: No cyanosis or clubbing. BACK: No deformity, no pressure ulcer. GENITOURINARY: Dysuria and frequency. Vital Sign (Last 12 Hours) 02/13/25 02/13/25 02/13/25 02/13/25 03:56 08:12 10:19 11:48 Temp 98.4 97.9 97.9 Pulse 72 73 69 Resp 20 18 18 B/P (MAP) 127/79 125/75 114/66 Pulse Ox 99 97 96 O2 Delivery Room Air Room Air Room Air* Room Air O2 Flow Rate 0 FiO2 21 Intake & Output (last 24hrs) 02/12/25 02/12/25 02/13/25 15:00 23:00 07:00 Intake Total 1700.0 ml Balance 1700.0 ml LABS: Laboratory: Test 02/12/25 06:50 02/11/25 15:25 Range/Units White Blood Count 7.8 4.8-10.8 K/uL Red Blood Count 4.05 L 4.50-6.20 MIL/uL Hemoglobin 11.9 L 14.0-18.0 g/dL Hematocrit 35.2 L 42-54 % Mean Corpuscular Volume 86.9 79-99 fL Mean Corpuscular Hemoglobin 29.4 27.0-33.0 pg Mean Corpuscular Hemoglobin Concent 33.8 32.0-36.0 g/dL Red Cell Distribution Width 13.3 11.0-15.5 % Platelet Count 236 130-400 K/uL Mean Platelet Volume 9.7 7.5-10.5 fL Immature Granulocyte % (Auto) 0.6 0-1 % Neutrophils (%) (Auto) 51.9 40.0-77.0 % Lymphocytes (%) (Auto) 27.7 21.0-51.0 % Monocytes (%) (Auto) 16.4 H 3.0-13.0 % Eosinophils (%) (Auto) 2.6 0.0-8.0 % Basophils (%) (Auto) 0.8 0.0-5.0 % Neutrophils # (Auto) 4.1 1.8-7.7 K/uL Lymphocytes # (Auto) 2.2 1.0-4.8 K/uL Monocytes # (Auto) 1.3 H 0.1-1.0 K/uL Eosinophils # (Auto) 0.20 0.00-0.70 K/uL Basophils # (Auto) 0.06 0.00-0.20 K/uL Absolute Immature Granulocyte (auto 0.05 0-1 K/uL Nucleated Red Blood Cells 0.0 0.0-0.19 % Sodium Level 136 136-145 mmol/L Potassium Level 3.8 3.5-5.1 mmol/L Chloride Level 100 L 101-111 mmol/L Carbon Dioxide Level 28 21-32 mmol/L Blood Urea Nitrogen 7 7-18 mg/dL Creatinine 0.6 0.5-1.3 mg/dL Glomerular Filtration Rate Calc 113 >90 mL/min Random Glucose 97 70-105 mg/dL Total Calcium 8.7 8.5-10.1 mg/dL Vancomycin Level Trough 10.8 10.0-20.0 UG/ML ASSESSMENT: Methicillin-resistant Staphylococcus aureus bacteremia. Urinary tract infection. Right shoulder pain. Rhabdomyolysis. Polysubstance abuse. PLAN: Place midline. Case management to arrange for linezolid IV every 12 hrs for 2 weeks. Discontinue Zosyn. This case was reviewed and discussed with my supervising physician and the above assessment and plan was formulated and agreed upon. ATTESTATION BY PHYSICIAN I have seen and examined the patient. I reviewed the documentation, medical decision making, and treatment plan as noted by the mid-level provider above. I agree with the findings and plan of care. JED ELLIOTT MD, [facility] Feb 13, 2025 14:01
--- NOTE | 2025-02-13 14:38 | PN ---
[facility] PROGRESS NOTE Date of Service: Feb 13, 2025 Time of Service: 14:07 SUBJECTIVE: This is a 58 year old male Lithuanian-speaking with no pertinent medical surgical history who presents to the ED for complaints of right upper shoulder pain, right upper quadrant abdominal pain, fever, nausea, multiple episodes of vomiting and chest pain for three days.Patient provides history of alcohol consulption, polysubstance abuse(cocaine, marijuana)and cigarette smoking . At the time of admission, vital signs were temperature 102.9, heart rate 111, respiration 20, blood pressure 179/98. Labs were unremarkable , troponins trended flat .lipase 16. Urine toxicology positive for cocaine. CT abdomen and pelvis with contrast result revealed large amount of fecal material is seen in the colon may be related to constipation. Appendix is not well seen limiting evaluation. Chest x-ray result is unremarkable.While in the ER patient received Tylenol 1000 mg p.o., fluid resuscitation of NS 30 mL/kilogram over 3 hours, morphine 2 mg IV, and Zofran 4 mg IV and Rocephin 1 g IV. ER called and recommended to admit the patient. 02/09/25 The patient is examined at bedside, he is clinically improving today. He reports that his back pain has significantly improved, and chest pain has sl ightly improved. He now describes the chest pain as localized to left anterior chest wall sharp in nature reproducible with palpation and movement likely musculoskeletal in etiology. Denies radiation dyspnea and palpitation. No further episodes of vomiting or abdominal pain. Reports slight fatigue but it denies dizziness, diarrhea or fever. Remains on room air, tolerating oral intake and ambulating with minimal discomfort. WBC count is improving with 8.1 normal from 9.1 yesterday, hemoglobin is at 13.4, 39.2. Neutrophils are 71.3 Decreased from 82 point yesterday profile is normal CK is 300 increased CRP is 166.7 increased lactic acid is normal troponin is 38 from 40 blood cultures are positive for Gram-positive cocci sensitivities are still pending urine culture pending right upper quadrant ultrasound no gallstones, no ductal dilation no hydronephrosis. Chest x-ray normal 2D echocardiogram pending today. 02/10/25 Patient was examined at bedside. He reports significant improvement in overall condition. No chest pain today. Slightly lower back discomfort persists but much milder. Reports a headache which she attributes to not drinking enough water he feels dehydrated and notes poor oral intake. Denies any new nausea vomiting or abdominal pain. He is tolerating diet, ambulating without assistance and sleeping well. He denies fever, chills, dizziness, lightheadedness, visual changes, cough or shortness of breath. No signs of infection at present. He remains afebrile and hemodynamically stable on room air. Nutrition has evaluated the patient and recommended initiation of micronutrient replenishing including vitamin-D B12 B complex B6 and vitamin-C daily. WBC count decreased to 4.6 low from 8.1 yesterday hemoglobin and hematocrit are at 14.2 and 41.4 Platelets are decreased to 127 K from 167 K yesterday CMP is unremarkable sodium and chloride are low [id number] and 95. CRP and CK previously elevated troponin trending down blood culture positive for MRSA urine culture no growth. 2D echo revealed EF of 55-60, septal bounce suggestive of interventricular conduction delay, trace MR, aortic valve sclerosis. 02/11/2025. Patient seen and examined along with RN. No new complaints. Continues to have bacteremia with MRSA. ID on board. Remains on IV antibiotic 2D echo no endocarditis. We will repeat blood cultures tomorrow. 02/12/2025. Patient seen and examined along with RN. No new complaints. Repeat blood cultures taken so far negative. 02/13/2025: Patient seen in his room. Patient remains Afebrile and is receiving IV Zosyn and IV vancomycin. Vancomycin trough within normal limits. As per Infectious Disease recommendations patient should receive IV Linezolid for MRSA bacteremia x2 weeks. He is pending placement . REVIEW OF SYSTEMS CONSTITUTIONAL: Denies fevers, chills, or night sweats. No unintentional weight loss reported. NEUROLOGICAL: Denies headache, amaurosis fugax, motor weakness, sensory deficit, vertigo/spinning sensation, gait abnormalities, or tremors. ENT: No hearing loss, otalgia, otorrhea, rhinitis, rhinorrhea, hoarseness, or sore throat. CARDIOVASCULAR: Denies any exertional angina, dyspnea on exertion, orthopnea, paroxysmal nocturnal dyspnea, palpitations, life-threatening arrhythmias, claudication. PULMONARY: Denies any shortness of breath, cough, phlegm/sputum, hemoptysis, pleuritic chest pain. SLEEP: Denies morning headaches, daytime somnolence or napping. Denies difficulty falling asleep, staying asleep, waking from sleep. Denies knowledge of snoring. GASTROINTESTINAL: Denies any type of dysphagia to either liquids or solids. D enies nausea, vomiting, pyrosis, early satiety, abdominal pain, diarrhea, constipation, or changes in stool consistency or caliber. Denies coffee-ground emesis, hematemesis, hematochezia, or melanotic stools. GENITOURINARY: Denies frequency, urgency, nocturia, hematuria or incontinence (Storage/Irritative symptoms.) Low urinary stream, straining to void, urinary intermittency or hesitancy, splitting of the voiding stream, terminal dribbling. ENDOCRINOLOGIC: Denies polyuria, polydipsia, polyphagia or heat/cold intolerances. HEMATOLOGIC: Denies thrombophilia/previous clots, or coagulopathy/bleeding disorders. ONCOLOGIC: Denies personal history of malignancy. DERMATOLOGIC: Denies rashes or pruritus. PSYCHIATRIC: Denies any suicidal or homicidal ideation. Denies hallucinations. PHYSICAL EXAM GENERAL APPEARANCE: The patient is awake, alert, and oriented, in no acute cardiopulmonary distress. NEUROLOGICAL: Cranial nerves II-XII grossly intact. Motor is 5/5 in bilateral upper and lower extremities proximal to distal. No sensory deficits. HEENT: Face is symmetric. Pupils are equal and reactive. Extraocular movements are intact. NECK: Supple. No JVD. No thyromegaly. No submental, submandibular, pre- /postauricular, occipital or supraclavicular lymphadenopathy. CHEST: Normal chest expansion. No Telemetry. LUNGS: Absence of any rales, rhonchi or any wheezing. CARDIOVASCULAR: Regular. S1 and S2 normal. No appreciable rubs, murmurs or gallops. ABDOMEN: Soft, nontender, and nondistended. There is no rebound, voluntary guarding, or rigidity. : Deferred. No [place]. EXTREMITIES: Non-edematous and not cyanotic. No clubbing. Good capillary refill. SKIN: No skin breakdown. Vital Signs (last 8hr) Date Time Temp Pulse Resp B/P (MAP) Pulse Ox O2 Delivery O2 Flow Rate FiO2 02/13/25 11:48 97.9 69 18 114/66 96 Room Air 02/13/25 10:19 97 Room Air* 0 21 02/13/25 08:12 97.9 73 18 125/75 Room Air LABS: Laboratory: Test 02/12/25 06:50 02/11/25 15:25 Range/Units White Blood Count 7.8 4.8-10.8 K/uL Red Blood Count 4.05 L 4.50-6.20 MIL/uL Hemoglobin 11.9 L 14.0-18.0 g/dL Hematocrit 35.2 L 42-54 % Mean Corpuscular Volume 86.9 79-99 fL Mean Corpuscular Hemoglobin 29.4 27.0-33.0 pg Mean Corpuscular Hemoglobin Concent 33.8 32.0-36.0 g/dL Red Cell Distribution Width 13.3 11.0-15.5 % Platelet Count 236 130-400 K/uL Mean Platelet Volume 9.7 7.5-10.5 fL Immature Granulocyte % (Auto) 0.6 0-1 % Neutrophils (%) (Auto) 51.9 40.0-77.0 % Lymphocytes (%) (Auto) 27.7 21.0-51.0 % Monocytes (%) (Auto) 16.4 H 3.0-13.0 % Eosinophils (%) (Auto) 2.6 0.0-8.0 % Basophils (%) (Auto) 0.8 0.0-5.0 % Neutrophils # (Auto) 4.1 1.8-7.7 K/uL Lymphocytes # (Auto) 2.2 1.0-4.8 K/uL Monocytes # (Auto) 1.3 H 0.1-1.0 K/uL Eosinophils # (Auto) 0.20 0.00-0.70 K/uL Basophils # (Auto) 0.06 0.00-0.20 K/uL Absolute Immature Granulocyte (auto 0.05 0-1 K/uL Nucleated Red Blood Cells 0.0 0.0-0.19 % Sodium Level 136 136-145 mmol/L Potassium Level 3.8 3.5-5.1 mmol/L Chloride Level 100 L 101-111 mmol/L Carbon Dioxide Level 28 21-32 mmol/L Blood Urea Nitrogen 7 7-18 mg/dL Creatinine 0.6 0.5-1.3 mg/dL Glomerular Filtration Rate Calc 113 >90 mL/min Random Glucose 97 70-105 mg/dL Total Calcium 8.7 8.5-10.1 mg/dL Vancomycin Level Trough 10.8 10.0-20.0 UG/ML Current Medications Medications (Trade) Dose Ordered Sig/Aaron Route PRN Reason Start Time Stop Time Status Last Admin Dose Admin Acetaminophen (TYLenol 325MG TAB) 650 mg Q4H PRN PO MILD PAIN (1-3) 02/07/25 22:00 03/09/25 21:59 02/08/25 05:07 650 MG Acetaminophen (TYLenol 325MG TAB) 650 mg Q6H PRN PO TEMPERATURE GREATER THAN 101.5 02/07/25 22:00 03/09/25 21:59 02/08/25 19:23 650 MG Ascorbic Acid (Vitamin C 500mg Tab) 500 mg BID PO 02/10/25 21:00 03/12/25 20:59 02/13/25 09:07 500 MG Aspirin (Aspirin 81mg Ec Tab) 81 mg DAILY PO 02/09/25 09:00 03/11/25 08:59 02/13/25 09:07 81 MG Ceftriaxone Sodium 1 gm/ Sodium Chloride 50 ml @ 100 mls/hr Q24H IV 02/07/25 22:00 02/07/25 22:02 DC Ceftriaxone Sodium (ROCEphine 1G INJ) 1 gm Q24H IVPB 02/07/25 22:30 02/08/25 14:39 DC 02/08/25 00:19 1 GM Cyclobenzaprine HCl (Cyclobenzaprine HCl) 5 mg TID PO 02/08/25 21:00 03/10/25 20:59 02/13/25 09:07 5 MG Famotidine (Pepcid 20mg Vial) 20 mg BID IV 02/08/25 09:00 03/10/25 08:59 02/13/25 09:07 20 MG Heparin Sodium (Porcine) (HEParin 5,000 UNIT VIAL) 5,000 unit Q8H SQ 02/08/25 16:00 03/10/25 15:59 02/13/25 09:14 5,000 UNIT Magnesium Sulfate 50 ml @ 0 mls/hr PROTOCOL PRN IV y 02/08/25 16:00 03/10/25 15:59 Nitroglycerin (Nitrostat) 0.4 mg AD PRN SL CHEST PAIN 02/08/25 16:30 03/10/25 16:29 Ondansetron HCl (zoFRAN 4MG INJ) 4 mg Q6H PRN IV NAUSEA/VOMITING 02/07/25 22:00 03/09/25 21:59 Piperacillin Sod/ Tazobactam Sod (Zosyn 3.375gm+NS 50ml) 3.375 gm Q12H IV 02/10/25 22:00 02/13/25 14:05 DC 02/13/25 09:58 3.375 GM Piperacillin Sod/ Tazobactam Sod (Zosyn 3.375gm+NS 50ml) 3.375 gm Q12H IV 02/08/25 15:00 02/08/25 14:58 DC Piperacillin Sod/ Tazobactam Sod (Zosyn 3.375gm+NS 50ml) 3.375 gm Q12H IV 02/08/25 19:00 02/10/25 19:50 DC 02/10/25 06:19 3.375 GM Polyethylene Glycol (MIRalax 3350 17 GM POWD.PACK) 17 gm BID PO 02/08/25 21:00 03/10/25 20:59 02/13/25 09:07 17 GM Potassium Chloride 100 ml @ 50 mls/hr AD PRN IV POTASSIUM PROTOCOL 02/08/25 16:00 03/10/25 15:59 Potassium Chloride 100 ml @ 100 mls/hr AD PRN IV POTASSIUM PROTOCOL 02/11/25 07:00 02/13/25 06:45 DC Potassium Chloride (K-Dur/Klor-Con 20meq) 20 meq AD PRN PO POTASSIUM PROTOCOL 02/11/25 07:00 03/13/25 06:59 02/11/25 15:49 20 MEQ Potassium Chloride (KCl 10% Elixir 20meq/15ml) 20 meq AD PRN PO POTASSIUM PROTOCOL 02/11/25 07:00 03/13/25 06:59 Sodium Chloride 1,000 ml @ 100 mls/hr Q10H IV 02/07/25 22:00 03/09/25 21:59 02/13/25 02:09 100 MLS/HR Vancomycin HCl 250 ml @ 125 mls/hr Q8H IV 02/08/25 23:30 02/18/25 23:29 02/13/25 06:40 125 MLS/HR Vancomycin HCl (Vancomycin Protocol) 1 each AD IV 02/08/25 15:00 02/22/25 14:59 Vitamin B Complex/ Folic Acid (B Complex) 1 cap DAILY PO 02/10/25 13:00 03/12/25 12:59 02/13/25 09:07 1 CAP DIAGNOSTICS / RADIOLOGY: [ ] ASSESSMENT: Acute Chest Pain + Troponin Elevation Sepsis due to Gram-Positive Cocci Bacteremia (Suspected source: biliary vs urinary) Acute Cholecystitis (Suspected Distended GB + RUQ Pain) Severe Constipation with Fecal Loading Acute Back Pain Post-Traumatic Fall Hematuria with Positive UA (No leukocyte esterase) Cocaine Use Substance abuse disorder POA Hyponatremia POA Cocaine positive POA Active alcohol drinker POA Active cigarette smoker POA PLAN: Counseled on smoking, alcohol and recreational use cessation We will request labs in am Further orders to follow depending on above results Acute Chest Pain + Troponin Elevation : Secondary to cocaine abuse,POA Serial troponins & EKGs-negative * Aspirin 81 mg PO daily * Avoid beta blockers due to active cocaine use -CK elevated likely due to muscle injury or cocaine use. - 2D echocardiogram no evidence of vegetations or endocarditis Of in 650 mg p.o. q.6h for musculoskeletal pain. *discontinue Telemetry monitoring Sepsis due to MRSA- Source unknown,POA -resolved MRSA nasal screen negative * tolerating Vancomycin + Zosyn IV * pending 2nd blood culture-no growth in 24 hour ID recommendations appreciated-IV linezolid for 2 weeks Patient is unfunded-placement pending-ID call center support consultant aware. Case management on board Severe Constipation with Fecal Loading Plan: * Enemas until BM * Docusate + Senna PO daily * Polyethylene glycol (MiraLAX) PO daily * Monitor for BM, distention, vomiting * Hold PO intake if ileus suspected Acute Back Pain Post-Traumatic Fall Plan: * Acetaminophen 650 mg PO q6h * Avoid NSAIDs due to sepsis risk and GI strain * Muscle relaxant (Cyclobenzaprine 5 mg PO TID) if no contraindication * Physical therapy consult when stable MRI spine ruled out osteomyelitis, shows lower dorsal vertebral body hemangioma. Hematuria * Urine culture negative * Renal US if hematuria persists Polysubstance abuse * Toxicology referral for counseling-outpatient * Educate on cardiac, renal, and neurologic risks Vitamin-B complex p.o. q.d. - thiamine B1 100 mg IV daily Basis pyridoxin 50 mg p.o. daily Vitamin-C 500 mg p.o. b.i.d. Vitamin-D 2000 IU p.o. daily. Prophylaxis: DVT prophylaxis: Heparin 5000 units SQ q8h GI prophylaxis: Pantoprazole 40 mg IV daily Pulmonary: Incentive spirometry, ambulation as tolerated ATTESTATION BY PHYSICIAN I have seen and examined the patient. I reviewed the documentation, medical decision making, and treatment plan as noted by the resident provider above. I agree with the findings and plan of care. JORGE LUIS DAVIS MD, MD Feb 13, 2025 14:38
[2025-02-13 14:53] LABS: INR 0.99 (0.85-1.15); PROTHROMBIN TIME 10.5 SEC (9.6-11.6)
[2025-02-13 14:54] LABS: PARTIAL THROMBOPLASTIN TIME 30.9 SEC (26.3-35.5)
[2025-02-13 16:19] VITALS: BP 109/68; PULSE 68; RESP 18; TEMP 97.8
--- NOTE | 2025-02-13 18:35 | NUR ---
UA collected and sent to lab
[2025-02-13 19:14] LABS: ADD UA MICROSCOPIC YES; APPEARANCE,URINE CLEAR (CLEAR); BILIRUBIN,URINE NEGATIVE (NEGATIVE); COLOR,URINE LIGHT-YELLOW (YELLOW); GLUCOSE, URINE (UA) NEGATIVE (NEGATIVE); KETONES,URINE NEGATIVE (NEGATIVE); LEUKOCYTE ESTERASE ,URINE NEGATIVE Leu/uL (NEGATIVE); NITRATE,URINE NEGATIVE (NEGATIVE); OCCULT BLOOD,URINE NEGATIVE (NEGATIVE); PH,URINE 6.5 (5.0-8.0); PROTEIN,URINE NEGATIVE (NEGATIVE); UROBILINOGEN,URINE 0.2 mg/dL (0.2-1.0)
[2025-02-13 19:15] LABS: RBC,URINE 0-1 /HPF (0-1); WBC,URINE 0-1 /HPF (0-1)
[2025-02-13 20:00] VITALS: BP 120/72; PULSE 81; RESP 16; TEMP 97.4
[2025-02-14] VITALS (7 sets, daily range): BP systolic 108–118; BP diastolic 57–72; PULSE 65–77; RESP 16–18; TEMP 97.4–98; O2SAT 96–97
[2025-02-14 06:17] LABS: HEMATOCRIT 34.2 % (42-54); MEAN CORPUSCULAR HEMOGLOBIN 29.3 pg (27.0-33.0); MEAN CORPUSCULAR HGB CONC 32.7 g/dL (32.0-36.0); MEAN CORPUSCULAR VOLUME 89.5 fL (79-99); RED BLOOD CELL COUNT(AUTO) 3.82 MIL/uL (4.50-6.20); RED CELL DISTRIBUTION WIDTH 13.7 % (11.0-15.5); WHITE BLOOD COUNT (AUTO) 5.5 K/uL (4.8-10.8)
[2025-02-14 06:24] LABS: CREATININE 0.5 mg/dL (0.5-1.3); POTASSIUM 3.3 mmol/L (3.5-5.1)
--- NOTE | 2025-02-14 09:54 | PN ---
[facility] PROGRESS NOTE Date of Service: Feb 14, 2025 Time of Service: 09:50 SUBJECTIVE: This is a 58 year old male [place]raini-speaking with no pertinent medical surgical history who presents to the ED for complaints of right upper shoulder pain, right upper quadrant abdominal pain, fever, nausea, multiple episodes of vomiting and chest pain for three days.Patient provides history of alcohol consulption, polysubstance abuse(cocaine, marijuana)and cigarette smoking . At the time of admission, vital signs were temperature 102.9, heart rate 111, respiration 20, blood pressure 179/98. Labs were unremarkable , troponins trended flat .lipase 16. Urine toxicology positive for cocaine. CT abdomen and pelvis with contrast result revealed large amount of fecal material is seen in the colon may be related to constipation. Appendix is not well seen limiting evaluation. Chest x-ray result is unremarkable.While in the ER patient received Tylenol 1000 mg p.o., fluid resuscitation of NS 30 mL/kilogram over 3 hours, morphine 2 mg IV, and Zofran 4 mg IV and Rocephin 1 g IV. ER called and recommended to admit the patient. 02/09/25 The patient is examined at bedside, he is clinically improving today. He reports that his back pain has significantly improved, and chest pain has sl ightly improved. He now describes the chest pain as localized to left anterior chest wall sharp in nature reproducible with palpation and movement likely musculoskeletal in etiology. Denies radiation dyspnea and palpitation. No further episodes of vomiting or abdominal pain. Reports slight fatigue but it denies dizziness, diarrhea or fever. Remains on room air, tolerating oral intake and ambulating with minimal discomfort. WBC count is improving with 8.1 normal from 9.1 yesterday, hemoglobin is at 13.4, 39.2. Neutrophils are 71.3 Decreased from 82 point yesterday profile is normal CK is 300 increased CRP is 166.7 increased lactic acid is normal troponin is 38 from 40 blood cultures are positive for Gram-positive cocci sensitivities are still pending urine culture pending right upper quadrant ultrasound no gallstones, no ductal dilation no hydronephrosis. Chest x-ray normal 2D echocardiogram pending today. 02/10/25 Patient was examined at bedside. He reports significant improvement in overall condition. No chest pain today. Slightly lower back discomfort persists but much milder. Reports a headache which she attributes to not drinking enough water he feels dehydrated and notes poor oral intake. Denies any new nausea vomiting or abdominal pain. He is tolerating diet, ambulating without assistance and sleeping well. He denies fever, chills, dizziness, lightheadedness, visual changes, cough or shortness of breath. No signs of infection at present. He remains afebrile and hemodynamically stable on room air. Nutrition has evaluated the patient and recommended initiation of micronutrient replenishing including vitamin-D B12 B complex B6 and vitamin-C daily. WBC count decreased to 4.6 low from 8.1 yesterday hemoglobin and hematocrit are at 14.2 and 41.4 Platelets are decreased to 127 K from 167 K yesterday CMP is unremarkable sodium and chloride are low [id number] and 95. CRP and CK previously elevated troponin trending down blood culture positive for MRSA urine culture no growth. 2D echo revealed EF of 55-60, septal bounce suggestive of interventricular conduction delay, trace MR, aortic valve sclerosis. 02/11/2025. Patient seen and examined along with RN. No new complaints. Continues to have bacteremia with MRSA. ID on board. Remains on IV antibiotic 2D echo no endocarditis. We will repeat blood cultures tomorrow. 02/12/2025. Patient seen and examined along with RN. No new complaints. Repeat blood cultures taken so far negative. 02/13/2025: Patient seen in his room. Patient remains Afebrile and is receiving IV Zosyn and IV vancomycin. Vancomycin trough within normal limits. As per Infectious Disease recommendations patient should receive IV Linezolid for MRSA bacteremia x2 weeks. He is pending placement . 02/14/2025: Patient is seen in his room; patient remains afebrile and is receiving IV vancomycin. Vanco trough within normal limits. As per Infectious Disease recommendations, patient will be receiving a total of2 weeks of IV antibiotics for MRSA bacteremia. REVIEW OF SYSTEMS CONSTITUTIONAL: Denies fevers, chills, or night sweats. No unintentional weight loss reported. NEUROLOGICAL: Denies headache, amaurosis fugax, motor weakness, sensory deficit, vertigo/spinning sensation, gait abnormalities, or tremors. ENT: No hearing loss, otalgia, otorrhea, rhinitis, rhinorrhea, hoarseness, or sore throat. CARDIOVASCULAR: Denies any exertional angina, dyspnea on exertion, orthopnea, paroxysmal nocturnal dyspnea, palpitations, life-threatening arrhythmias, claudication. PULMONARY: Denies any shortness of breath, cough, phlegm/sputum, hemoptysis, pleuritic chest pain. SLEEP: Denies morning headaches, daytime somnolence or napping. Denies difficulty falling asleep, staying asleep, waking from sleep. Denies knowledge of snoring. GASTROINTESTINAL: Denies any type of dysphagia to either liquids or solids. Denies nausea, vomiting, pyrosis, early satiety, abdominal pain, diarrhea, constipation, or changes in stool consistency or caliber. Denies coffee-ground emesis, hematemesis, hematochezia, or melanotic stools. GENITOURINARY: Denies frequency, urgency, nocturia, hematuria or incontinence (Storage/Irritative symptoms.) Low urinary stream, straining to void, urinary intermittency or hesitancy, splitting of the voiding stream, terminal dribbling. ENDOCRINOLOGIC: Denies polyuria, polydipsia, polyphagia or heat/cold intolerances. HEMATOLOGIC: Denies thrombophilia/previous clots, or coagulopathy/bleeding disorders. ONCOLOGIC: Denies personal history of malignancy. DERMATOLOGIC: Denies rashes or pruritus. PSYCHIATRIC: Denies any suicidal or homicidal ideation. Denies hallucinations. PHYSICAL EXAM GENERAL APPEARANCE: The patient is awake, alert, and oriented, in no acute cardiopulmonary distress. NEUROLOGICAL: Cranial nerves II-XII grossly intact. Motor is 5/5 in bilateral upper and lower extremities proximal to distal. No sensory deficits. HEENT: Face is symmetric. Pupils are equal and reactive. Extraocular movements are intact. NECK: Supple. No JVD. No thyromegaly. No submental, submandibular, pre- /postauricular, occipital or supraclavicular lymphadenopathy. CHEST: Normal chest expansion. No Telemetry. LUNGS: Absence of any rales, rhonchi or any wheezing. CARDIOVASCULAR: Regular. S1 and S2 normal. No appreciable rubs, murmurs or gallops. ABDOMEN: Soft, nontender, and nondistended. There is no rebound, voluntary guarding, or rigidity. : Deferred. No [place]. EXTREMITIES: Non-edematous and not cyanotic. No clubbing. Good capillary refill. SKIN: No skin breakdown. Vital Signs (last 8hr) Date Time Temp Pulse Resp B/P (MAP) Pulse Ox O2 Delivery O2 Flow Rate FiO2 02/14/25 08:48 97.5 68 18 118/72 97 02/14/25 07:57 96 Room Air* 0 21 02/14/25 04:00 98.1 65 17 108/57 98 Room Air 21 02/14/25 02:21 97 Room Air* 0 21 LABS: Laboratory: Test 02/14/25 06:05 02/13/25 18:30 02/13/25 14:20 Range/Units White Blood Count 5.5 4.8-10.8 K/uL Red Blood Count 3.82 L 4.50-6.20 MIL/uL Hemoglobin 11.2 L 14.0-18.0 g/dL Hematocrit 34.2 L 42-54 % Mean Corpuscular Volume 89.5 79-99 fL Mean Corpuscular Hemoglobin 29.3 27.0-33.0 pg Mean Corpuscular Hemoglobin Concent 32.7 32.0-36.0 g/dL Red Cell Distribution Width 13.7 11.0-15.5 % Platelet Count 304 # 130-400 K/uL Mean Platelet Volume 8.9 7.5-10.5 fL Nucleated Red Blood Cells 0.0 0.0-0.19 % Sodium Level 144 136-145 mmol/L Potassium Level 3.3 L 3.5-5.1 mmol/L Chloride Level 110 101-111 mmol/L Carbon Dioxide Level 25 21-32 mmol/L Blood Urea Nitrogen 9 7-18 mg/dL Creatinine 0.5 0.5-1.3 mg/dL Glomerular Filtration Rate Calc 119 >90 mL/min Random Glucose 78 70-105 mg/dL Total Calcium 7.3 L 8.5-10.1 mg/dL Urine Color LIGHT-YELLOW YELLOW Urine Appearance CLEAR CLEAR Urine pH 6.5 5.0-8.0 Urine Specific [place] 1.011 1.001-1.031 Urine Protein NEGATIVE NEGATIVE mg/dL Urine Glucose (UA) NEGATIVE NEGATIVE mg/dL Urine Ketones NEGATIVE NEGATIVE mg/dL Urine Occult Blood NEGATIVE NEGATIVE Urine Nitrate NEGATIVE NEGATIVE Urine Bilirubin NEGATIVE NEGATIVE mg/dL Urine Urobilinogen 0.2 0.2-1.0 mg/dL Urine Leukocyte Esterase NEGATIVE NEGATIVE Prasanth/uL Urine RBC 0-1 0-1 /HPF Urine WBC 0-1 0-1 /HPF Urine Bacteria None None Seen /HPF Prothrombin Time 10.5 9.6-11.6 SEC Prothromb Time International Ratio 0.99 0.85-1.15 Activated Partial Thromboplast Time 30.9 26.3-35.5 SEC Vancomycin Level Trough 15.9 # 10.0-20.0 UG/ML Current Medications Medications (Trade) Dose Ordered Sig/Aaron Route PRN Reason Start Time Stop Time Status Last Admin Dose Admin Acetaminophen (TYLenol 325MG TAB) 650 mg Q4H PRN PO MILD PAIN (1-3) 02/07/25 22:00 03/09/25 21:59 02/08/25 05:07 650 MG Acetaminophen (TYLenol 325MG TAB) 650 mg Q6H PRN PO TEMPERATURE GREATER THAN 101.5 02/07/25 22:00 03/09/25 21:59 02/08/25 19:23 650 MG Ascorbic Acid (Vitamin C 500mg Tab) 500 mg BID PO 02/10/25 21:00 03/12/25 20:59 02/14/25 08:40 500 MG Aspirin (Aspirin 81mg Ec Tab) 81 mg DAILY PO 02/09/25 09:00 03/11/25 08:59 02/14/25 08:40 81 MG Ceftriaxone Sodium 1 gm/ Sodium Chloride 50 ml @ 100 mls/hr Q24H IV 02/07/25 22:00 02/07/25 22:02 DC Ceftriaxone Sodium (ROCEphine 1G INJ) 1 gm Q24H IVPB 02/07/25 22:30 02/08/25 14:39 DC 02/08/25 00:19 1 GM Cyclobenzaprine HCl (Cyclobenzaprine HCl) 5 mg TID PO 02/08/25 21:00 03/10/25 20:59 02/14/25 08:41 5 MG Famotidine (Pepcid 20mg Vial) 20 mg BID IV 02/08/25 09:00 03/10/25 08:59 02/14/25 08:41 20 MG Heparin Sodium (Porcine) (HEParin 5,000 UNIT VIAL) 5,000 unit Q8H SQ 02/08/25 16:00 03/10/25 15:59 02/14/25 08:51 5,000 UNIT Magnesium Sulfate 50 ml @ 0 mls/hr PROTOCOL PRN IV y 02/08/25 16:00 03/10/25 15:59 Nitroglycerin (Nitrostat) 0.4 mg AD PRN SL CHEST PAIN 02/08/25 16:30 03/10/25 16:29 Ondansetron HCl (zoFRAN 4MG INJ) 4 mg Q6H PRN IV NAUSEA/VOMITING 02/07/25 22:00 03/09/25 21:59 Piperacillin Sod/ Tazobactam Sod (Zosyn 3.375gm+NS 50ml) 3.375 gm Q12H IV 02/10/25 22:00 02/13/25 14:05 DC 02/13/25 09:58 3.375 GM Piperacillin Sod/ Tazobactam Sod (Zosyn 3.375gm+NS 50ml) 3.375 gm Q12H IV 02/08/25 15:00 02/08/25 14:58 DC Piperacillin Sod/ Tazobactam Sod (Zosyn 3.375gm+NS 50ml) 3.375 gm Q12H IV 02/08/25 19:00 02/10/25 19:50 DC 02/10/25 06:19 3.375 GM Polyethylene Glycol (MIRalax 3350 17 GM POWD.PACK) 17 gm BID PO 02/08/25 21:00 03/10/25 20:59 02/13/25 20:40 17 GM Potassium Chloride 100 ml @ 50 mls/hr AD PRN IV POTASSIUM PROTOCOL 02/08/25 16:00 03/10/25 15:59 Potassium Chloride 100 ml @ 100 mls/hr AD PRN IV POTASSIUM PROTOCOL 02/11/25 07:00 02/13/25 06:45 DC Potassium Chloride (K-Dur/Klor-Con 20meq) 20 meq AD PRN PO POTASSIUM PROTOCOL 02/11/25 07:00 03/13/25 06:59 02/14/25 08:41 20 MEQ Potassium Chloride (KCl 10% Elixir 20meq/15ml) 20 meq AD PRN PO POTASSIUM PROTOCOL 02/11/25 07:00 03/13/25 06:59 Sodium Chloride 1,000 ml @ 100 mls/hr Q10H IV 02/07/25 22:00 03/09/25 21:59 02/14/25 01:04 100 MLS/HR Vancomycin HCl 250 ml @ 125 mls/hr Q8H IV 02/08/25 23:30 02/18/25 23:29 02/14/25 08:40 125 MLS/HR Vancomycin HCl (Vancomycin Protocol) 1 each AD IV 02/08/25 15:00 02/22/25 14:59 Vitamin B Complex/ Folic Acid (B Complex) 1 cap DAILY PO 02/10/25 13:00 03/12/25 12:59 02/14/25 08:40 1 CAP DIAGNOSTICS / RADIOLOGY: [ ] ASSESSMENT: Acute Chest Pain + Troponin Elevation Sepsis due to Gram-Positive Cocci Bacteremia (Suspected source: biliary vs urinary) Acute Cholecystitis (Suspected Distended GB + RUQ Pain) Severe Constipation with Fecal Loading Acute Back Pain Post-Traumatic Fall Hematuria with Positive UA (No leukocyte esterase) Cocaine Use Substance abuse disorder POA Hyponatremia POA Cocaine positive POA Active alcohol drinker POA Active cigarette smoker POA PLAN: Counseled on smoking, alcohol and recreational use cessation We will request labs in am Further orders to follow depending on above results Acute Chest Pain + Troponin Elevation : Secondary to cocaine abuse,POA Serial troponins & EKGs-negative * Aspirin 81 mg PO daily * Avoid beta blockers due to active cocaine use -CK elevated likely due to muscle injury or cocaine use. - 2D echocardiogram no evidence of vegetations or endocarditis Of in 650 mg p.o. q.6h for musculoskeletal pain. *discontinue Telemetry monitoring Sepsis due to MRSA- Source unknown,POA -resolved MRSA nasal screen negative * tolerating Vancomycin + Zosyn IV * 2nd blood culture-no growth in 48 hour ID recommendations appreciated-IV linezolid for 2 weeks Patient is unfunded-placement pending-ID compensation consultant aware. Case management on board Severe Constipation with Fecal Loading-resolved Plan: * Enemas until BM * Docusate + Senna PO daily * Polyethylene glycol (MiraLAX) PO daily * Monitor for BM, distention, vomiting * Hold PO intake if ileus suspected Acute Back Pain Post-Traumatic Fall-resolved Plan: * Acetaminophen 650 mg PO q6h * Avoid NSAIDs due to sepsis risk and GI strain * Muscle relaxant (Cyclobenzaprine 5 mg PO TID) if no contraindication * Physical therapy consult when stable MRI spine ruled out osteomyelitis, shows lower dorsal vertebral body hemangioma. Hematuria -resolved Probably secondary to cocaine abuse * Urine culture negative Polysubstance abuse * Toxicology referral for counseling-outpatient * Educate on cardiac, renal, and neurologic risks Vitamin-B complex p.o. q.d. - thiamine B1 100 mg IV daily Basis pyridoxin 50 mg p.o. daily Vitamin-C 500 mg p.o. b.i.d. Vitamin-D 2000 IU p.o. daily. Prophylaxis: DVT prophylaxis: Heparin 5000 units SQ q8h GI prophylaxis: Pantoprazole 40 mg IV daily Pulmonary: Incentive spirometry, ambulation as tolerated ATTESTATION BY PHYSICIAN I have seen and examined the patient. I reviewed the documentation, medical decision making, and treatment plan as noted by the resident provider above. I agree with the findings and plan of care. RADHA PINEDA MD, ANCHU A MD Feb 14, 2025 09:54
--- NOTE | 2025-02-14 15:25 | PN ---
INFECTIOUS DISEASE PROGRESS NOTE Date of Service: Feb 14, 2025 SUBJECTIVE: This is a 59-year-old male patient who was seen and examined at bedside in room 328. Patient is awake, alert and oriented x 3. Patient is sitting up on the edge of the bed. Common law visiting at bedside. No fever, temperature is 97.5. Case management arranging for linezolid IV every 12 hours for 2 weeks. Midline has been placed. We will sign off at this time. PHYSICAL EXAM EYES: Anicteric. Pupils equal and reactive. HENT: No oral thrush seen, moist Oral mucosa NECK: Supple, no JVD or thyromegaly. LUNGS: Good air entry. No rales, no rhonchi. CARDIOVASCULAR: S1, S2 regular. No murmur heard. ABDOMEN: Soft, non tender, bowel sounds present, no organomegaly CENTRAL NERVOUS SYSTEM: Awake, alert, oriented x 3. SKIN: No rashes, no swelling. LYMPHATICS: No peripheral lymphadenopathy MUSCULOSKELETAL: No joint swelling, erythema or tenderness. Right shoulder p ain. EXTREMITIES: No cyanosis or clubbing. BACK: No deformity, no pressure ulcer. GENITOURINARY: Dysuria and frequency. Vital Sign (Last 12 Hours) 02/14/25 02/14/25 02/14/25 02/14/25 04:00 07:57 08:48 12:38 Temp 98.1 97.5 97.7 Pulse 65 68 76 Resp 17 18 18 B/P (MAP) 108/57 118/72 111/57 Pulse Ox 98 96 97 98 O2 Delivery Room Air Room Air* Room Air O2 Flow Rate 0 FiO2 21 21 Intake & Output (last 24hrs) 02/13/25 02/13/25 02/14/25 14:59 22:59 06:59 Intake Total 440 ml 220 ml Balance 440 ml 220 ml LABS: Laboratory: Test 02/14/25 06:05 02/13/25 18:30 02/13/25 14:20 Range/Units White Blood Count 5.5 4.8-10.8 K/uL Red Blood Count 3.82 L 4.50-6.20 MIL/uL Hemoglobin 11.2 L 14.0-18.0 g/dL Hematocrit 34.2 L 42-54 % Mean Corpuscular Volume 89.5 79-99 fL Mean Corpuscular Hemoglobin 29.3 27.0-33.0 pg Mean Corpuscular Hemoglobin Concent 32.7 32.0-36.0 g/dL Red Cell Distribution Width 13.7 11.0-15.5 % Platelet Count 304 # 130-400 K/uL Mean Platelet Volume 8.9 7.5-10.5 fL Nucleated Red Blood Cells 0.0 0.0-0.19 % Sodium Level 144 136-145 mmol/L Potassium Level 3.3 L 3.5-5.1 mmol/L Chloride Level 110 101-111 mmol/L Carbon Dioxide Level 25 21-32 mmol/L Blood Urea Nitrogen 9 7-18 mg/dL Creatinine 0.5 0.5-1.3 mg/dL Glomerular Filtration Rate Calc 119 >90 mL/min Random Glucose 78 70-105 mg/dL Total Calcium 7.3 L 8.5-10.1 mg/dL Urine Color LIGHT-YELLOW YELLOW Urine Appearance CLEAR CLEAR Urine pH 6.5 5.0-8.0 Urine Specific [place] 1.011 1.001-1.031 Urine Protein NEGATIVE NEGATIVE mg/dL Urine Glucose (UA) NEGATIVE NEGATIVE mg/dL Urine Ketones NEGATIVE NEGATIVE mg/dL Urine Occult Blood NEGATIVE NEGATIVE Urine Nitrate NEGATIVE NEGATIVE Urine Bilirubin NEGATIVE NEGATIVE mg/dL Urine Urobilinogen 0.2 0.2-1.0 mg/dL Urine Leukocyte Esterase NEGATIVE NEGATIVE Prasanth/uL Urine RBC 0-1 0-1 /HPF Urine WBC 0-1 0-1 /HPF Urine Bacteria None None Seen /HPF Prothrombin Time 10.5 9.6-11.6 SEC Prothromb Time International Ratio 0.99 0.85-1.15 Activated Partial Thromboplast Time 30.9 26.3-35.5 SEC Vancomycin Level Trough 15.9 # 10.0-20.0 UG/ML ASSESSMENT: Methicillin-resistant Staphylococcus aureus bacteremia. Urinary tract infection. Right shoulder pain. Rhabdomyolysis. Polysubstance abuse. PLAN: Case management arranging for linezolid IV every 12 hrs for 2 weeks. Midline has been placed. We will sign off at this time. This case was reviewed and discussed with my supervising physician and the above assessment and plan was formulated and agreed upon. ATTESTATION BY PHYSICIAN I have seen and examined the patient. I reviewed the documentation, medical decision making, and treatment plan as noted by the mid-level provider above. I agree with the findings and plan of care. JED ELLIOTT MD, MIRTA L [facility] Feb 14, 2025 15:24
[2025-02-14] MEDS: LINEZOLID 600 MG/ISO-OSM 300 ML IV SCH (17:51)
--- NOTE | 2025-02-14 18:05 | DS ---
Discharge Summary Hospital Course Summary: 58 year old male with no significant past medical history presented to the ED with complaints of fever, nausea, multiple episodes of vomiting, right shoulder pain, right upper quadrant abdominal pain, and chest pain for past three days. Patient provides history of alcohol consumption, polysubstance abuse(cocaine, marijuana)and cigarette smoking . At the time of admission, vital signs were temperature 102.9, heart rate 111, respiration 20, blood pressure 179/98. Labs remarkable for CK elevated at 300,CRP 166.7, Lactic acid 1.9, Urinalysis with large blood -? myoglobinuria. Troponin trended flat . Urine toxicology positive for cocaine. CT abdomen and pelvis with contrast result revealed large amount of fecal material is seen in the colon may be related to constipation. He was admitted for the management of sepsis with unknown source . Blood cultures grew MRSA. He was treated with IV Vancomycin and Zosyn for 5 days and Infectious disease farm consultant recommended to continue treatment for MRSA bacteremia with IV Linezolid for 2 weeks duration. Echo did not show evidence of valvular vegetations. MRI spinal canal didnot show evidence of osteomyelitis . Vanco-trough was within normal limits .He has been tolerating the IV antibiotics and has been stable throughout the hospital course.He is clinically stable at the time of discharge. Resources Representative(s): INFECTIOUS DISEASE PROGRESS NOTE Date of Service: Feb 09, 2025 SUBJECTIVE: This is a 59-year-old male patient with no past medical history who presented to the emergency room for evaluation of right shoulder pain radiating to the right side of the chest. 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 Right shoulder X-ray done on admission was negative for dislocation or fracture. Total CK results was 300. Patient also reported having fevers, chills and nausea at home. In the ED patient had a fever of 102.9. He was swab for influenza and COVID-19 and results came back negative. Patient reported having burning and frequent urination. A urinalysis was obtained and following on cultures. Blood cultures were obtained and preliminary results growing Gram- positive cocci in clusters. A chest x-ray was negative. Patient reported that the lady he lives with has cats and dogs inside the house. Patient has been started on vancomycin and Zosyn. On examination today patient is oriented x3, R[place]an-speaking only. He is able to move his arm with some pain. Still voicing some pain on the right side of the chest mostly when he raises his arm up and he relates it to the arm pulling incident. No body rash nor bites seen at this time. Patient reported he smokes one pack of cigarette per week, drinks beer mostly on the weekends and does marijuana and cocaine every weekend. No fever this morning, temperature is 98.2. Denying abdominal pain. We will continue current antibiotics and to be adjusted when culture is updated or finalized. We will continue to follow patient. REVIEW OF SYSTEMS CONSTITUTIONAL: Fever and chills POA. HEAD/FACE: No signs of trauma. EENT: Denies eye pain, blurred vision, double vision, or light sensitivity. RESPIRATORY: Denies shortness of breath, cough, wheezing. CARDIOVASCULAR: Denies chest pain, palpitation, syncope. GASTROINTESTINAL/ABDOMINAL: Nausea and vomiting POA. GENITOURINARY: Dysuria and frequency POA. MUSCULOSKELETAL: Denies joint pain, tenderness, or trauma. Right side of the chest and shoulder pain. INTEGUMENTARY: Denies rash or itchiness NEUROLOGICAL/PSYCH: Denies anxiety, depression, heat or cold intolerance. PHYSICAL EXAM EYES: Anicteric. Pupils equal and reactive. HENT: No oral thrush seen, moist Oral mucosa NECK: Supple, no JVD or thyromegaly. LUNGS: Good air entry. No rales, no rhonchi. CARDIOVASCULAR: S1, S2 regular. No murmur heard. ABDOMEN: Soft, non tender, bowel sounds present, no organomegaly CENTRAL NERVOUS SYSTEM: Awake, alert, oriented x 3. SKIN: No rashes, no swelling. LYMPHATICS: No peripheral lymphadenopathy MUSCULOSKELETAL: No joint swelling, erythema or tenderness. Right shoulder pain. EXTREMITIES: No cyanosis or clubbing. BACK: No deformity, no pressure ulcer. GENITOURINARY: Dysuria and frequency. Vital Sign (Last 12 Hours) 02/08/25 02/09/25 02/09/25 23:39 03:23 08:00 Temp 98.1 98.2 98.2 Pulse 72 70 72 Resp 18 18 18 B/P (MAP) 143/92 155/90 154/94 Pulse Ox 99 100 100 O2 Delivery Room Air Room Air Room Air Intake & Output (last 24hrs) 02/08/25 02/08/25 02/09/25 15:00 23:00 07:00 Output Total 550 ml Balance -550 ml LABS: Laboratory: Test 02/09/25 06:20 02/08/25 16:26 02/08/25 07:22 02/07/25 17:50 Range/Units White Blood Count 8.1 4.8-10.8 K/uL Red Blood Count 4.54 4.50-6.20 MIL/uL Hemoglobin 13.4 L 14.0-18.0 g/dL Hematocrit 39.2 L 42-54 % Mean Corpuscular Volume 86.3 79-99 fL Mean Corpuscular Hemoglobin 29.5 27.0-33.0 pg Mean Corpuscular Hemoglobin Concent 34.2 32.0-36.0 g/dL Red Cell Distribution Width 13.2 11.0-15.5 % Platelet Count 167 130-400 K/uL Mean Platelet Volume 10.1 7.5-10.5 fL Immature Granulocyte % (Auto) 0.5 0-1 % Neutrophils (%) (Auto) 71.3 40.0-77.0 % Lymphocytes (%) (Auto) 15.1 L 21.0-51.0 % Monocytes (%) (Auto) 12.2 3.0-13.0 % Eosinophils (%) (Auto) 0.5 0.0-8.0 % Basophils (%) (Auto) 0.4 0.0-5.0 % Neutrophils # (Auto) 5.8 1.8-7.7 K/uL Lymphocytes # (Auto) 1.2 1.0-4.8 K/uL Monocytes # (Auto) 1.0 0.1-1.0 K/uL Eosinophils # (Auto) 0.04 0.00-0.70 K/uL Basophils # (Auto) 0.03 0.00-0.20 K/uL Absolute Immature Granulocyte (auto 0.04 0-1 K/uL Nucleated Red Blood Cells 0.0 0.0-0.19 % Sodium Level 134 L 136-145 mmol/L Potassium Level 4.1 3.5-5.1 mmol/L Chloride Level 99 L 101-111 mmol/L Carbon Dioxide Level 29 21-32 mmol/L Blood Urea Nitrogen 7 7-18 mg/dL Creatinine 0.7 0.5-1.3 mg/dL Glomerular Filtration Rate Calc 107 >90 mL/min Random Glucose 99 70-105 mg/dL Total Calcium 8.6 8.5-10.1 mg/dL Magnesium Level 1.80 1.80-2.40 mg/dL Total Bilirubin 0.3 0.2-1.0 mg/dL Aspartate Amino Transf (AST/SGOT) 24 10-37 U/L Alanine Aminotransferase (ALT/SGPT) 32 12-78 U/L Alkaline Phosphatase 71 50-136 U/L Total Protein 6.8 6.0-8.3 g/dL Albumin 2.9 L 3.5-5.0 g/dL Prothrombin Time 10.3 9.6-11.6 SEC Prothromb Time International Ratio 0.97 0.85-1.15 Activated Partial Thromboplast Time 32.7 26.3-35.5 SEC Lactic Acid Level 1.8 0.8-2.5 mmol/L Total Creatine Kinase 300 #H 21-232 U/L Troponin I High Sensitivity 38 4-75 ng/L C-Reactive Protein, Quantitative 166.70 H 0.5-3.0 mg/L Procalcitonin 0.14 0.05-0.5 ng/mL White Cell Morphology Comment See comments Urine Color YELLOW YELLOW Urine Appearance CLEAR CLEAR Urine pH 8.5 H 5.0-8.0 Urine Specific [place] 1.032 H 1.001-1.031 Urine Protein 600 H NEGATIVE mg/dL Urine Glucose (UA) NEGATIVE NEGATIVE mg/dL Urine Ketones 40 H NEGATIVE mg/dL Urine Occult Blood MODERATE H NEGATIVE Urine Nitrate NEGATIVE NEGATIVE Urine Bilirubin NEGATIVE NEGATIVE mg/dL Urine Urobilinogen >=8.0 H 0.2-1.0 mg/dL Urine Leukocyte Esterase NEGATIVE NEGATIVE Prasanth/uL Urine RBC TNTC H 0-1 /HPF Urine WBC 2-5 H 0-1 /HPF Urine Squamous Epithelial Cells RARE 0-2 /HPF Urine Other Crystals (Auto) 1 None Seen /HPF Urine Bacteria None None Seen /HPF Direct Bilirubin 0.2 0.0-0.3 mg/dL Lipase 16 16-77 U/L Urine Opiates Screen NEGATIVE NEGATIVE Urine Barbiturates Screen NEGATIVE NEGATIVE Urine Phencyclidine Screen NEGATIVE NEGATIVE Urine Amphetamines Screen NEGATIVE NEGATIVE Urine Benzodiazepines Screen NEGATIVE NEGATIVE Urine Cocaine Screen POSITIVE H NEGATIVE Urine Marijuana (THC) Screen NEGATIVE NEGATIVE Test 02/07/25 17:28 Range/Units Influenza Type A Antigen Negative For Type A NEGATIVE Influenza Type B Antigen Negative For Type B NEGATIVE SARS-CoV-2 Antigen (Rapid) PRESUMPTIVE NEGATIVE NEGATIVE Group A Streptococcus Rapid negative NEGATIVE DIAGNOSTICS / RADIOLOGY: PATIENT: ANDREW BECKER ACCT: [id number] LOC: [facility] U: [id number] AGE/SX: 59/M ROOM: [facility] RE02/07/[address]: SARITHA CAICEDO MD : 1965 BED: 1 DIS: STATUS: ADM IN TLOC: SPEC: [id number] DARRICK: 02/07/25 STATUS: RES REQ: [id number] RECD: 02/08/[address]: ADRIANE MOSHER SOURCE: BLOOD ENTR: 02/08/[address]: STEPHY: BLOOD ORDERED: AERO ID & SENS Procedure Result Mulu Date-Time AEROBIC ID & SENSITIVITIES Preliminary 02/09/25-0745 [facility] COLONY DESCRIPTION: DAY 1: GRAM STAIN FROM BLOOD CULTURE BOTTLE GRAM POSITIVE COCCI IN CLUSTERS AEROBIC AND ANAEROBIC BOTTLES ISOLATION IN PROGRESS DAY 2: STAPHYLOCOCCUS AUREUS SENSITIVITY TO FOLLOW Test(s) performed by: [facility] [place] [address] ASSESSMENT: Gram-positive bacteremia. Urinary tract infection. Right shoulder pain. Rhabdomyolysis. Polysubstance abuse. PLAN: Continue vancomycin per pharmacy protocol. Continue Zosyn. Antibiotics to be adjusted when culture is updated or finalized. Continue pain management. Continue GI prophylaxis. We will monitor electrolytes. Thank you for allowing ID to participate in the care of this patient. This case was reviewed and discussed with my supervising physician and the above assessment and plan was formulated and agreed upon. ATTESTATION BY PHYSICIAN I have seen and examined the patient. I reviewed the documentation, medical decision making, and treatment plan as noted by the mid-level provider above. I agree with the findings and plan of care. JED ELLIOTT MD, MIRTA L [facility] Feb 09, 2025 11:33 Procedure(s): Procedure Result Mulu Date-Time AEROBIC ID & SENSITIVITIES Final 02/10/25-0711 [facility] METHICILLIN-RESISTANT STAPHYLOCOCCUS AUREUS RESULT WAS CALLED BY RICHIE WANG ON 02/10/25 AT 0708. CRITICAL VALUES WERE READ BACK AND ACKNOWLEDGED BY RUBI TAM ([facility] [place]) COLONY DESCRIPTION: DAY 1: GRAM STAIN FROM BLOOD CULTURE BOTTLE GRAM POSITIVE COCCI IN CLUSTERS AEROBIC AND ANAEROBIC BOTTLES ISOLATION IN PROGRESS DAY 2: STAPHYLOCOCCUS AUREUS SENSITIVITY TO FOLLOW MRSA: NOTE: THIS IS A METHICILLIN-RESISTANT STAPH AUREUS STAPHYLOCOCCUS AUREUS-MRSA MRSA M.I.C. RX --------- ---- CLINDAMYCIN 0.5 S ERYTHROMYCIN <=0.5 S GENTAMICIN <=4 S VANCOMYCIN 1 S OXACILLIN MARILIN >2 R RIFAMPIN <=1 S TETRACYCLINE <=4 S TRIMETHOPRIM/SUFLAMETHOXAZOLE <=0.5/9.5 S @ [facility] Test Performed at: [facility] [address], [place], [place] Medical Plant Protection Superintendent: Enmanuel Campoverde D.O. END OF REPORT Specimen Report PATIENT: ANDREW BECKER ACCT: [id number] LOC: [facility] U: [id number] AGE/SX: 59/M ROOM: 328 RE02/07/[address]: SARITHA CAICEDO MD : 1965 BED: 1 DIS: STATUS: ADM IN TLOC: SPEC: [id number] DARRICK: 02/12/25 STATUS: RES REQ: [id number] RECD: 02/12/[address]: RADHA PINEDA MD SOURCE: BLOOD ENTR: 02/11/25-538 [facility] [address]: JED ELLIOTT MD [facility]: SARITHA CAICEDO MD SELF,REFERRAL ORDERED: BLOOD CULTURE COMMENTS: What is the Source? BLOOD Procedure Result Mulu Date-Time BLOOD CULT Preliminary 02/14/25-723 NO GROWTH AFTER 48 HOURS PROCEDURE: CXR1VW - CHEST 1VW PORTABLE CHEST RADIOGRAPH INDICATION: Fever COMPARISON: None FINDINGS: Heart size is normal. The pulmonary vascularity and hillary appear normal. No abnormal pulmonary parenchymal opacity or consolidation identified. Left suprahilar scarring. No significant pleural effusion noted. No pneumothorax detected. IMPRESSION: No radiographic evidence for any acute cardiopulmonary process. DICTATED BY: YELENA DURÁN MD DATE: 02/07/251749 ELECTRONICALLY SIGNED BY: YELENA DURÁN MD DATE: 02/07/251752 PROCEDURE: ABD PEL W - CT ABDOMEN/PELVIS W/CONTRAST CT ABDOMEN/PELVIS W/CONTRAST HISTORY: Epigastric pain COMPARISON: None TECHNIQUE: Multiple sequential axial images of the abdomen and pelvis were obtained from the dome of the diaphragm through symphysis pubis. Patient was given 100 cc of Omnipaque through intravenous route. Oral contrast was not given. FINDINGS: No pleural effusion is seen bilaterally. There is no evidence of parenchymal disease or pulmonary nodule of the visualized lower lungs. Degenerative changes of the thoracolumbar spine are present. The heart is not enlarged. Gallbladder is distended. Common duct is not dilated. The liver, spleen, adrenal glands and pancreas are unremarkable. 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 There is no evidence of hydronephrosis bilaterally. No evidence of renal stone is seen. Fecal material is seen in the colon. There are normal size retroperitoneal and mesenteric lymph nodes. No ascites is seen. Mild small bowel dilatation is seen. Appendix is not well seen in the evaluation. Pelvic sidewalls are symmetric bilaterally. Bladder is well distended without wall thickening. IMPRESSION: 1. Large amount of fecal material is seen in the colon may be related to constipation. Appendix is not well-seen limiting evaluation. CT was performed with one or more following dose reduction techniques: automated exposure control, adjustment of the mA and kv according to patient's size, or use of a iterative reconstruction technique. DICTATED BY: VIKTOR MANDUJANO MD DATE: 02/07/252000 ELECTRONICALLY SIGNED BY: VIKTOR MANDUJANO MD DATE: 02/07/252008 PROCEDURE: SHOL 2V RT - SHOULDER COMP 2+VWS RT SHOULDER COMP 2+VWS RT HISTORY: Right shoulder pain COMPARISON: None TECHNIQUE: 2 images of right shoulder were obtained. FINDINGS: There is no acute displaced fracture or dislocation. Degenerative changes are seen. IMPRESSION: 1. Findings as described above. DICTATED BY: VIKTOR MANDUJANO MD DATE: 02/08/25 0749 ELECTRONICALLY SIGNED BY: VIKTOR MANDUJANO MD DATE: 02/08/25 0753 PROCEDURE: ABDOMEN - US ABDOMINAL COMPLETE US ABDOMINAL COMPLETE HISTORY: Cholecystitis COMPARISON: CT from 02/07/2025 TECHNIQUE: Multiple transverse and longitudinal ultrasound images of the abdomen were obtained. FINDINGS: Abdominal aorta and inferior vena cava are unremarkable. The visualized portion of the pancreas is within normal limits. Liver measures 16.3 cm. Liver is echogenic consistent with liver parenchymal disease. No gallstone is seen. Common duct measures 5 mm. No evidence of gallbladder wall thickening is seen. Both kidneys are seen. Right kidney measures 10.9 x 4.1 x 3.6 cm. Left kidney measures 13.1 x 6 x 5 cm. No hydronephrosis is seen of the both kidneys. 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 The spleen is grossly unremarkable. IMPRESSION: 1. No gallstone or ductal dilatation is seen. 2. No hydronephrosis is seen. DICTATED BY: VIKTOR MANDUJANO MD DATE: 02/09/251134 ELECTRONICALLY SIGNED BY: VIKTOR MANDUJANO MD DATE: 02/09/251138 PROCEDURE: CXR1VW - CHEST 1VW CHEST 1VW HISTORY: For cardiopulmonary pathology COMPARISON: 02/07/2025 FINDINGS: A frontal projection of the chest was obtained. No acute pulmonary infiltrates is seen. The heart is borderline enlarged. Degenerative changes are seen. Aortic calcifications are seen. IMPRESSION: 1. No acute pulmonary infiltrate is seen. DICTATED BY: VIKTOR MANDUJANO MD DATE: 02/10/251241 ELECTRONICALLY SIGNED BY: VIKTOR MANDUJANO MD DATE: 02/10/251244 PROCEDURE: ECHO CMP - ECHO 2-D COMPLETE APPROVED REPORT EXAM: Two-dimensional and M-mode echocardiogram with Doppler and color Doppler. INDICATION ICD: lead for structural heart disease 2D Dimensions RVDd 3.4 cm LVEF(%) 46.2 (>50%) LVED Vol(simp.) 118.0 mL IVSd 1.0 (0.7-1.1cm) FS(%) 23 % LVES Vol(simp.) 57.0 mL LVDd 5.4 (3.8-5.6cm) LA (2D) 3.2 (1.6-4.0cm) LVEF(%, simp.) 52 % PWd 1.1 (0.7-1.1cm) Ao Root(2D) 3.5 (2.0-3.7cm) LA ESV INDEX (BP) 27.20 mL/m2 IVSs 1.2 cm LVOT diam 2.4 (1.8-2.4cm) LVDs 4.2 (2.5-4.0cm) IVC diam 1.1 cm PWs 1.8 cm Deformation Strain Apical 4 -18.0 % Apical 2 -17.0 % Apical 3 -19.0 % Global Strain -18.0 % M-Mode Dimensions EPSS 1.2 cm Ao Root(MM) 3.4 (2.0-3.7cm) Aortic Valve AoV Vmax 1.1 m/s Ao Peak GR 4.7 mmHg LVOT Vmax 0.9 m/s AoV VTI 0.2 m Ao Mean GR 2.5 mmHg LVOT VTI 0.15 m VENECIA (VMAX) 3.8 cm2 VENECIA (VTI) 3.8 cm2 Mitral Valve MV E Vmax 51.4 cm/s DECEL Time 163 ms MV A Vmax 59.7 cm/s P 1/2 T 68 ms E/A ratio 0.9 MVA (PHT) 3.2 cm2 TDI E/E' Medial 5.0 Pulmonary Valve PV Vmax 0.9 m/s Tricuspid Valve TR Vmax 1.6 m/s RAP (EST) 3 mmHg RVSP 15.0 mmHg TR Peak GR 12.0 mmHg Left Ventricle The left ventricle structure and function is normal. Septal bounce is present consistent with underlying interventricular conduction delay. There is normal left ventricular wall thickness. LVEF is 55-60%. The left ventricular diastolic function is normal. Right Ventricle The right ventricle is normal size. The right ventricular systolic function is normal. Atria The left atrium size is normal. The right atrium size is normal. Aortic Valve Aortic valve is trileaflet. No aortic regurgitation is present. Aortic valve sclerosis without stenosis. The right coronary cusp displays nodular calcification. Mitral Valve The mitral valve is normal in structure and function. Trace mitral regurgitation. There is no mitral valve stenosis. Tricuspid Valve The tricuspid valve is normal in structure and function. There is no tricuspid valve regurgitation noted. Pulmonic Valve Pulmonic valve is not well visualized. Trace pulmonic regurgitation. Great Vessels The aortic root is normal in size. The IVC is normal in size and collapses >50% with inspiration. Pericardium The pericardium appears normal. No pericardial effusion. Other Information Quality : Adequate Rhythm : NSR Conclusion LVEF is 55-60%. Septal bounce is present consistent with underlying interventricular conduction delay. The left ventricular diastolic function is normal. Aortic valve sclerosis without stenosis. The right coronary cusp displays nodular calcification. Trace mitral regurgitation. DICTATED BY: ALINE SMITH DO DATE: 02/10/25 0901 ELECTRONICALLY SIGNED BY: ALINE SMITH DO DATE: 02/10/25 1011 PROCEDURE: TH SPN WWO - MR SPINAL CANAL, THORACIC WWO MRI OF THE THORACIC SPINE WITHOUT GADOLINIUM Clinical Information: R/O OSTEOMYELITIS Comparison: none Technique: Sagittal T1 and T2 FSE, Sagittal STIR and Sagittal proton density images were completed through the thoracic spine. Axial T1, T2 and proton density images were also acquired. FINDINGS: The examination is unremarkable except for the presence of a lower dorsal vertebral body hemangioma, benign lesion. Specifically, no fractures or dislocations are seen. There is adequate alignment of the entire visualized portions of the spine. The disc spaces are preserved. There are no herniations or bulges. No paraspinal abnormalities are seen. IMPRESSION: NORMAL MRI OF THE THORACIC SPINE. No abnormal enhancement or other evidence of osteomyelitis. DICTATED BY: TEMITOPE PAIZ MD DATE: 02/11/25853 ELECTRONICALLY SIGNED BY: TEMITOPE PAIZ MD DATE: 02/11/25857 Assessment/Plan: DISCHARGE DIAGNOSIS: Acute Chest Pain POA -Resolved Sepsis due to Gram-Positive Cocci Bacteremia (source: unknown),POA Acute Cholecystitis -ruled out Severe Constipation with Fecal Loading,POA -resolved Acute Back Pain Post-Traumatic Fall,POA -resolved Hematuria -resolved Cocaine Use Substance abuse disorder POA Hyponatremia POA Cocaine positive POA Active alcohol drinker POA Active cigarette smoker POA ASSESSMENT: Acute Chest Pain : Secondary to cocaine abuse,POA Resolved Serial troponin & EKGs-negative * Aspirin 81 mg PO daily * Avoid beta blockers due to active cocaine use -CK elevated likely due to muscle injury or cocaine use. - 2D echocardiogram with no evidence of vegetations or endocarditis Sepsis with MRSA bacteremia- Source unknown,POA -resolved Repeat blood culture-no growth in 48 hour MRSA nasal screen negative tolerated Vancomycin + Zosyn IV Vancotrough : 15.9 on 02.13.25 ID recommendations -IV linezolid for 2 weeks Patient will be receiving IV Linezolid 600 mg q12 hours at the hospital on a daily basis after discharge for 2 weeks . Case management on board. Check CBC every week . Severe Constipation with Fecal Loading-resolved Increase dietary fiber Stay hydrated Incorporate regular physical activity into your routine Acute Back Pain Post-Traumatic Fall-resolved MRI spine ruled out osteomyelitis, shows lower dorsal vertebral body hemangioma. Tylenol 650 mg three times daily as needed for back pain . Hematuria -resolved-secondary to cocaine abuse * Urine culture negative Polysubstance abuse Counseled on smoking, alcohol and recreational use cessation Educated on cardiac, renal, and neurologic risks Vitamin-B complex p.o. q.d. Pyridoxin 50 mg p.o. daily Vitamin-C 500 mg p.o. b.i.d. Vitamin-D 2000 IU p.o. daily. Discharge Instructions: DATE OF ADMISSION: 02/07/2025 DATE OF DISCHARGE: 02/14/2025 DISPOSITION: HOME CONDITION: Medically stable CONSULTANTS: Infectious Disease FOLLOW UP APPOINTMENTS: Please follow up with your primary care physician within 2 to 3 days after discharge . Please follow up with Wound center at [facility] for daily infusion of IV Linezolid 600 mg q12h for 10 days from 4.15.25 to 4.25.25 . Please check Complete blood count every week . PROCEDURES: NA IMAGING: report attached to summary MICROBIOLOGY: report attached to summary HOME MEDICATIONS: see med rec NEW MEDICATIONS: See medication reconciliation EMERGENCY INSTRUCTIONS: The patient was instructed to present to the nearest Emergency departmentr or call 911 once their symptoms will return or worsen Home Medications: No Active Prescriptions or Reported Meds Time spent arranging discharge: 31-60 minutes ATTESTATION BY PHYSICIAN I have seen and examined the patient. I reviewed the documentation, medical decision making, and treatment plan as noted by the resident provider above. I agree with the findings and plan of care. JORGE LUIS DAVIS MD, MD Feb 14, 2025 18:05
--- NOTE | 2025-02-14 20:14 | NUR ---
PATIENT DC AT THIS TIME. ALL INFO GIVEN ON ABX INFUSION FOR 10 DAYS AT [facility]. PIV REMOVED TO LEFT FOREARM. PATIENT LEAVING WITH MIDLINE TO KATERINE THAT WAS PLACED TODAY. AT BEDSIDE AND VERBALIZED UNDERSTANDING OF ALL DC INSTRUCTIONS
== END 2025-02-14 20:15 | disposition home or self-care (01) | DRG 872 ==
LOC: EDH 17:07 → EDHIP 17:08 → EDBD 17:08 → 3DH 02-08 10:33
PROVIDERS: ADMIT Internal Medicine; ATTEND Internal Medicine
PROC: 05HB33Z Insertion of Infusion Device into Right Basilic Vein, Percutaneous Approach (ICD-10-PCS; principal; 2025-02-13)
PROC: B54MZZA Ultrasonography of Right Upper Extremity Veins, Guidance (ICD-10-PCS; 2025-02-13)
DX: A41.89 Other specified sepsis (principal); E87.1 Hypo-osmolality and hyponatremia; M62.82 Rhabdomyolysis; N39.0 Urinary tract infection, site not specified; E44.1 Mild protein-calorie malnutrition; F14.10 Cocaine abuse, uncomplicated; B96.89 Other specified bacterial agents as the cause of diseases classified elsewhere; B95.62 Methicillin resistant Staphylococcus aureus infection as the cause of diseases classified elsewhere; F17.210 Nicotine dependence, cigarettes, uncomplicated; K59.00 Constipation, unspecified; Z20.822 Contact with and (suspected) exposure to COVID-19; I35.8 Other nonrheumatic aortic valve disorders; D18.09 Hemangioma of other sites; R79.89 Other specified abnormal findings of blood chemistry; Z68.24 Body mass index [BMI] 24.0-24.9, adult; Z79.82 Long term (current) use of aspirin
CPT/HCPCS: 36415; 36556; 71045; 72157; 73030; 74177; 76376; 76700; 80048; 80053; 80076; 80202; 80305; 81001; 82306; 82550; 82570; 82607; 83605; 83690; 83735; 84145; 84156; 84207; 84484; 85025; 85027; 85610; 85730; 86140; 87040; 87086; 87186; 87426; 87641; 87804; 87880; 93005; 93306; 93356; 96361; 96374; 96375; 99285; C1894; G0378; J0696; J1644; J2020; J2270; J2405; J2543; J3370; J3411; J3490; J7030; Q9967; A9575; C1750